=== PATIENT | male | born 1985 | race Caucasian/White ===

== ENCOUNTER 2016-06-06 23:58 | Inpatient (IN) | payer OTHER ==
[~2016-06-06] VITALS: Ht 180.3 cm; Wt 105.0 kg
[~2016-06-06 23:58] MED LIST: AMOXICILLIN500 M2 PO; NAPROSYN500 M1 PO
[2016-06-07] VITALS (10 sets, daily range): BP systolic 118–144; BP diastolic 43–60
--- NOTE | 2016-06-07 00:23 | NUR ---
PT TO TRIAGE C/O BILAT LEG SWELLING AND PAIN/ INABILITY TO WALK WELL "A LAUNDRY LIST OF THINGS." DENIES CHEST PAIN, DENIES SOB. BILATERALY EXTREMITIES 2+ PITTING EDEMA NOTED.
[2016-06-07] MEDS ORDERED: SEROQUEL XR200 M1 PO (00:37)
[2016-06-07] MEDS ORDERED: PRAZOSIN HCL1 M1 PO (00:39)
[2016-06-07] MEDS ORDERED: ALPRAZOLAM0.5 M4 PO (00:39)
--- NOTE | 2016-06-07 00:40 | NUR ---
PA STUDENT AT BEDSIDE FOR EVAL
--- NOTE | 2016-06-07 00:52 | ED GENERAL ADULT ---
See Addendum History of Present Illness General Chief Complaint: General Adult Stated Complaint: BILAT LEG SWELLING MULTI COMP HAND PROB X'S 1 WK Source: patient, family Exam Limitations: no limitations Vital Signs & Intake/Output Vital Signs & Intake/Output Vital Signs Date Time Temp Pulse Resp B/P Pulse O2 O2 Flow FiO2 Ox Delivery Rate 06/07 0331 97.5 87 18 124/57 100 Room Air 06/07 0033 100 Room Air 06/07 0024 98.4 93 18 126/58 100 Room Air Allergies Coded Allergies: No Known Allergies (10/20/15) Triage Note: PT TO TRIAGE C/O BILAT LEG SWELLING AND PAIN/ INABILITY TO WALK WELL "A LAUNDRY LIST OF THINGS." DENIES CHEST PAIN, DENIES SOB. BILATERALY EXTREMITIES 2+ PITTING EDEMA NOTED. Triage Nurses Notes Reviewed? yes Onset: Abrupt Duration: week(s): (1), constant, continues in ED Timing: recent history Injury Environment: home No Modifying Factors: none HPI: 31-year-old male comes into emergency room with complaints of edema to his legs bilaterally that has been going on for the past week as well as some increased weakness and fatigue. He also feels that his abdomen is distended. Denies any alcohol use. Denies any drug use. Patient reports she's never had edema in his legs in the past. He also reports some weakness in his legs bilaterally. Denies any urinary bowel dysfunction. (BLADIMIR JACKSON,GENO) Reconcile Medications Alprazolam 0.5 MG TABLET 1 TAB PO TIDPRN ANXIETY (Reported) Prazosin HCl 1 MG CAPSULE 1 CAP PO QPM HTN (Reported) Quetiapine Fumarate (Seroquel XR) 200 MG TAB.ER.24H 1 TAB PO QPM MENTAL HEALTH (Reported) (SANDY JEREZ,VERONICA Menezes) Past History Travel History Traveled to [place] past 21 day No Medical History Any Pertinent Medical History? 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 No (GENO SAMUEL) Review of Systems Review of Systems Constitutional: Reports: no symptoms. EENTM: Reports: no symptoms. Respiratory: Reports: no symptoms. Cardiovascular: Reports: no symptoms. GI: Reports: see HPI. Genitourinary: Reports: no symptoms. Musculoskeletal: Reports: see HPI. Skin: Reports: no symptoms. Neurological/Psychological: Reports: no symptoms. Hematologic/Endocrine: Reports: no symptoms. Immunologic/Allergic: Reports: no symptoms. All Other Systems: Reviewed and Negative (GENO SAMUEL) Physical Exam Physical Exam General Appearance: well developed/nourished, alert, awake Head: atraumatic, normal appearance Eyes: Bilateral: normal appearance, EOMI. Ears, Nose, Throat: normal pharynx, normal ENT inspection, hearing grossly normal Neck: normal inspection, full range of motion Respiratory: normal breath sounds, no respiratory distress Cardiovascular: regular rate/rhythm Extremities: 4+ pitting edema bilaterally Neurologic/Psych: awake, alert, oriented x 3, normal gait Skin: intact, normal color Core Measures ACS in differential dx? No CVA/TIA Diagnosis: No Severe Sepsis Present: No Septic Shock Present: No (GENO SAMUEL) Progress Differential Diagnoses I considered the following diagnoses in my evaluation of the patient: Renal failure, hypoalbuminemia, liver cirrhosis, viral syndrome, hypothyroid, CHF, anasarca, hepatitis, Plan of Care: Orders Procedure Date/time Status Add-on Test (ER Only) 06/07 0331 Active URINE DRUGS OF ABUSE 06/07 0307 Active URINE OSMOLALITY 06/07 0307 Active URINE LYTES, SPOT 06/07 0307 Active Intake & Output 06/07 0246 Active Admit to inpatient 06/07 0225 Active EKG 06/07 0214 Active Patient Data 06/07 0210 Active AMMONIA LEVEL 06/07 0204 Complete ACETOMINOPHEN 06/07 0107 Active SALICYLATE 06/07 0107 Active SERUM OSMOLALITY 06/07 0107 Active MAGNESIUM 06/07 0107 Active DIRECT BILIRUBIN 06/07 0107 Active Add-on Test (ER Only) 06/07 0055 Active PARTIAL THROMBOPLASTIN TIME 06/07 0055 Complete PROTHROMBIN TIME 06/07 0055 Complete URINALYSIS 06/07 0048 Active THYROID STIMULATING HORMONE 03/23 0048 Active ETHANOL 06/08 47 Active COMPREHENSIVE METABOLIC PANEL 06/08 47 Active CBC WITHOUT DIFFERENTIAL 06/08 47 Complete Lab Add-on Test 06/07 UNK Active Laboratory Tests 06/07/16 0239: Ammonia < 9 L 06/07/16 0107: Anion Gap 13, Estimated GFR > 60, BUN/Creatinine Ratio 30.0 H, Glucose 135 H, Serum Osmolality Pending, Calcium 9.6, Magnesium Pending, Total Bilirubin 2.9 H , Direct Bilirubin Pending, AST 89 H, ALT 47, Alkaline Phosphatase 182 H, Total Protein 6.5, Albumin 3.7, Globulin 2.8, Albumin/Globulin Ratio 1.3, TSH 3.360, PT 27.1 H, INR 2.61 H, APTT 40 H, CBC w Diff MAN DIFF ORDERED, RBC 2.15 L, MCV 115.2 H, MCH 38.1 H, RDW 21.7 H, MPV 8.4, Gran % 81.0 H, Lymphocytes % 17.1 L, Monocytes % 1.0 L, Eosinophils % 0.8, Basophils % 0.1, Absolute Granulocytes 13.0 H, Segmented Neutrophils 76 H, Band Neutrophils 1, Absolute Lymphocytes 2.8, Lymphocytes 18 L, Monocytes 4, Absolute Monocytes 0.2 , Eosinophils 1, Absolute Eosinophils 0.1, Absolute Basophils 0, Nucleated RBCs 1 H, Platelet Estimate ADEQUATE, Polychromasia 1+, Poikilocytosis 1+, Anisocytosis 3+, Macrocytic Cells 3+, Target Cells RARE, Ovalocytes 1+, Stomatocytes FEW, Elliptocytes FEW, PUBS MCHC 33.1, Fld Total RBCs Counted 100, Salicylates Pending, Acetaminophen Pending, Serum Alcohol < 10.0 Initial ED EKG: none Hand-Off Endorsed To: SANDY JEREZ,VERONICA Menezes Endorsed Time: 57 Pending: CT, labs (BLADIMIR JACKSON,GENO) Diagnostic Imaging: Viewed by Me: CT Scan. Discussed w/RAD: CT Scan. Radiology Impression: PATIENT: MARC CATES JR PRESENT AGE: 31 PATIENT ACCOUNT NO: [id number] : 83 LOCATION: [facility] ORDERING PHYSICIAN: GENO JACKSON SERVICE DATE: 06/07/16 EXAM TYPE : CAT - CT ABD & PELVIS W IV CONTRAST EXAMINATION: CT ABDOMEN AND PELVIS WITH CONTRAST CLINICAL INFORMATION: Hepatomegaly. Lower extremity edema. COMPARISON: None TECHNIQUE: Multidetector volumetric imaging was performed of the abdomen and pelvis before and after the IV administration of 94 mL of Optiray 320 intravenous contrast. Sagittal and coronal reformatted images were obtained on the technologist's workstation. DLP: 771.91 mGy-cm FINDINGS: LUNG BASES: Small bilateral pleural effusions. Bibasilar dependent atelectasis. LIVER, GALLBLADDER , AND BILIARY TREE: Liver is enlarged. Right lobe of liver measures 24 cm superior inferior. No focal liver lesion. No intrapelvic bile duct dilatation. The gallbladder is unremarkable with no evidence of radiopaque gallstones, gallbladder wall thickening, or obvious pericholecystic inflammatory changes. PANCREAS: Unremarkable. SPLEEN: Spleen is enlarged. Spleen measures 19.4 cm superior inferior. ADRENAL GLANDS: Unremarkable. KIDNEYS AND URETERS: The kidneys are normal in size, shape, and attenuation. No hydronephrosis, hydroureter, or calculi seen. No perinephric stranding. BLADDER: Unremarkable. GASTROINTESTINAL TRACT: There is some contrast in the large bowel. This is mixed was moderate volume of stool. No acute change of the bowel. No bowel obstruction. No bowel wall thickening or edema. The appendix is normal. Small bowel loops are normal. MESENTERY: Moderate volume of abdominal ascites. ABDOMINAL WALL: No significant hernia is appreciated. LYMPH NODES: There are subcentimeter lymph nodes in the retroperitoneum the parapelvic paracaval region. No bulky lymphadenopathy. VASCULAR: Normal enhancement of the abdominal and pelvic vasculature. This includes inferior vena cava, portal vein, aorta and iliac vessels. PELVIC VISCERA: Unremarkable. OSSEOUS STRUCTURES: Unremarkable. IMPRESSION: Hepatosplenomegaly. Abdominal ascites. Bilateral pleural effusions. DICTATED BY: MARK BECKER MD DATE/TIME DICTATED:06/07/16230 BACK END WEB DEVELOPER :DOLLY DATE/TIME TRANSCRIBED:06/07/16230 CONFIDENTIAL, DO NOT COPY WITHOUT APPROPRIATE AUTHORIZATION. <Electronically signed in Other Vendor System> SIGNED BY: MARK BECKER MD 06/07/16 0240 Initial ED EKG: SR WITH PROLONGED QT. NO OLD TO COMPARE Comments: Patient states that he is trying to cut back on his drinking. Patient went to [employer] in 2010 but did not feel that it helped. Patient states he uses alcohol as a crutch to get through things. Patient states he is able to occlude 3-4 days without drinking without any difficulties. Patient states that he knows he needs to stop drinking. Patient will be admitted to the ICU for hyponatremia. Patient also has evidence of alcoholic cirrhosis. (SANDY JEREZ,VERONICA Menezes) Departure Departure Disposition: STILL A PATIENT Referrals: DION PAYTON D.O. (PCP/Family) Departure Forms: Customer Survey General Discharge Information (GENO SAMUEL) Departure Condition: Guarded Clinical Impression Primary Impression: Hyponatremia Secondary Impressions: Alcoholic cirrhosis of liver with ascites Edema, lower extremity Qualifiers: Laterality: bilateral Qualified Code: R60.0 - Localized edema Admission Note [facility] Documentation of Exam: Documentation of any treatments & extenuating circumstances including Concerns Regarding Discharge (functional status, medication knowledge or non-compliance, living conditions, etc.) that warrant an admission rather than observation: [ICU ADMISSION, FLUID RESTRICTION, GI CONSULT, PSYCH CONSULT FOR ALCOHOL REHAB ONCE MEDICALLY STABLE.] (SANDY JEREZ,VERONICA Menezes) Critical Care Note Critical Care Note Critical Care Time: non-applicable (GENO SAMUEL)
--- NOTE | 2016-06-07 01:11 | NUR ---
LABS SENT (1SST, 1 LAV, 1 BLUE, 1 GUTIERREZ) URINAL AT BEDSIDE FOR PT AND PT AWARE OF NEED FOR URINE SAMPLE.
[2016-06-07 01:21] LABS: ABSOLUTE BASOPHIL COUNT 0 /CUMM (0.0-0.2); ABSOLUTE EOSINOPHIL COUNT 0.1 /CUMM (0.0-0.7); ABSOLUTE LYMPH COUNT 2.8 /CUMM (1.2-3.4); ABSOLUTE MONOCYTE COUNT 0.2 /CUMM (0.10-0.60); BASOPHIL % 0.1 % (0.0-2.0); EOSINOPHIL % 0.8 % (0-5); HEMATOCRIT 24.8 % (42-52); MEAN CORPUSCULAR HGB 38.1 PG (27.0-31.0); MEAN CORPUSCULAR HGB CONC 33.1 G/DL (33.0-37.0); MEAN CORPUSCULAR VOLUME 115.2 FL (80.0-94.0); MEAN PLATELET VOLUME 8.4 FL (7.4-10.4); PLATELET COUNT 102 /CUMM (130-400); RBC DISTRIBUTION WIDTH 21.7 % (11.5-14.5); RED BLOOD CELL CT 2.15 /CUMM (4.70-6.10); WHITE BLOOD CELL COUNT 16.1 /CUMM (4.8-10.8)
[2016-06-07 01:30] LABS: PT 27.1 SEC (9.4-12.5); PTT 40 SEC (25-37)
--- NOTE | 2016-06-07 01:51 | NUR ---
CRITICAL TEST RESULTS [id number] MARC CATES JR 31 M TESTS AND RESULTS: NA 114 Results received and read back by: GEETA LOPEZ Results received date and time: 06/07/16 0151 The following provider was notified of the results, and read the results back: Notified date and time: 06/07/16 at 0151
--- NOTE | 2016-06-07 02:05 | NUR ---
PT TO CAT SCAN VIA STRETHER AT THIS TIME
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
--- NOTE | 2016-06-07 02:30 | NUR ---
PT BACK FROM CAT SCAN. HAS UNOPENED GATORADE BOTTLE IN ROOM. REMINDED HE IS TO REMAIN NPO AT THIS TIME. PT IN AGREEMENT.
--- NOTE | 2016-06-07 02:40 | CT SCAN REPORT ---
EXAMINATION: CT ABDOMEN AND PELVIS WITH CONTRAST CLINICAL INFORMATION: Hepatomegaly. Lower extremity edema. COMPARISON: None TECHNIQUE: Multidetector volumetric imaging was performed of the abdomen and pelvis before and after the IV administration of 94 mL of Optiray 320 intravenous contrast. Sagittal and coronal reformatted images were obtained on the technologist's workstation. DLP: 771.91 mGy-cm FINDINGS: LUNG BASES: Small bilateral pleural effusions. Bibasilar dependent atelectasis. LIVER, GALLBLADDER, AND BILIARY TREE: Liver is enlarged. Right lobe of liver measures 24 cm superior inferior. No focal liver lesion. No intrapelvic bile duct dilatation. The gallbladder is unremarkable with no evidence of radiopaque gallstones, gallbladder wall thickening, or obvious pericholecystic inflammatory changes. PANCREAS: Unremarkable. SPLEEN: Spleen is enlarged. Spleen measures 19.4 cm superior inferior. ADRENAL GLANDS: Unremarkable. KIDNEYS AND URETERS: The kidneys are normal in size, shape, and attenuation. No hydronephrosis, hydroureter, or calculi seen. No perinephric stranding. BLADDER: Unremarkable. GASTROINTESTINAL TRACT: There is some contrast in the large bowel. This is mixed was moderate volume of stool. No acute change of the bowel. No bowel obstruction. No bowel wall thickening or edema. The appendix is normal. Small bowel loops are normal. MESENTERY: Moderate volume of abdominal ascites. ABDOMINAL WALL: No significant hernia is appreciated. LYMPH NODES: There are subcentimeter lymph nodes in the retroperitoneum the parapelvic paracaval region. No bulky lymphadenopathy. VASCULAR: Normal enhancement of the abdominal and pelvic vasculature. This includes inferior vena cava, portal vein, aorta and iliac vessels. PELVIC VISCERA: Unremarkable. OSSEOUS STRUCTURES: Unremarkable. IMPRESSION: Hepatosplenomegaly. Abdominal ascites. Bilateral pleural effusions.
--- NOTE | 2016-06-07 02:41 | NUR ---
PT PLACED ON SENIOR TALENT ACQUISITION SPECIALIST. NSR (HR 87) AMMONIA SENT TO LAB. HOUSE STAFF AT BEDSIDE TO MARY KAY.
--- NOTE | 2016-06-07 03:10 | NUR ---
MOTHER CALLED AND LEFT PHONE NUMBER [phone] AND FATHERS NUMBER [phone]
--- NOTE | 2016-06-07 03:12 | NUR ---
PT BED ASSIGNMENT 103
--- NOTE | 2016-06-07 03:48 | Admission Certification ---
Admission Certification Certification Statement - As attending physician, I certify that at the time of - admission, based on clinical presentation, severity of - symptoms, need for further diagnostic testing and - therapeutic interventions, and risk of adverse outcomes - without in-hospital treatment, in my clinical assessment, - this patient requires an acute hospital stay for a minimum - of two nights or longer. I have also considered psychsocial - factors such as support system, advanced age, financial - issues, cognitive issues, and failed out-patient treatments, - past re-admission history, safety of patient, and lack of - compliance as applicable. Specific rationale supporting this admission is: Severe hyponatremia.
--- NOTE | 2016-06-07 03:57 | NUR ---
REPORT GIVEN TO [facility] ICU
[2016-06-07] MEDS ORDERED: [UNRECOGNIZED DRUG - OTHER] PO (04:11)
--- NOTE | 2016-06-07 04:41 | RADIOLOGY REPORT ---
EXAMINATION: XR CHEST CLINICAL INFORMATION: Leukocytosis. Altered mental status. COMPARISON: CT abdomen pelvis 06/07/2016. TECHNIQUE: 2 views of the chest were obtained. FINDINGS: There is blunting of the posterior costophrenic angles bilateral due to small volume pleural effusions. There is small bibasilar infiltrate/atelectasis better demonstrated on the CT abdomen and pelvis of 06/07/2016. No significant pulmonary vascular congestion. Heart size is normal. Cardiac and mediastinal contours are normal. IMPRESSION: Small bilateral pleural effusions. Small bibasilar infiltrate/atelectasis at the posterior dependent lung bases.
[2016-06-07 06:22] LABS: ABSOLUTE BASOPHIL COUNT 0 /CUMM (0.0-0.2); ABSOLUTE EOSINOPHIL COUNT 0.1 /CUMM (0.0-0.7); ABSOLUTE GRANULOCYTE CT 10.2 /CUMM (1.4-6.5); ABSOLUTE LYMPH COUNT 2.4 /CUMM (1.2-3.4); ABSOLUTE MONOCYTE COUNT 0.5 /CUMM (0.10-0.60); BASOPHIL % 0.3 % (0.0-2.0); EOSINOPHIL % 0.7 % (0-5); HEMATOCRIT 23.7 % (42-52); MEAN CORPUSCULAR HGB 38.1 PG (27.0-31.0); MEAN CORPUSCULAR HGB CONC 32.6 G/DL (33.0-37.0); MEAN CORPUSCULAR VOLUME 116.9 FL (80.0-94.0); MEAN PLATELET VOLUME 8.7 FL (7.4-10.4); PLATELET COUNT 87 /CUMM (130-400); RBC DISTRIBUTION WIDTH 21.6 % (11.5-14.5); RED BLOOD CELL CT 2.03 /CUMM (4.70-6.10); WHITE BLOOD CELL COUNT 13.2 /CUMM (4.8-10.8)
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
--- NOTE | 2016-06-07 08:00 | NUR ---
Patient is drowsey but easily arousable to verbal stimuli, oriented to person and place but needs reorientation to time. Able to move all extremities and can follow commands. BLE are weak and pt needs assistance turning in bed. Speech is slow but he is able to answer questions appropriately. Pupils are approx 3mm and brisk. NSR on tele monitor, HR= 80-90's, SBP: 120-140's and pt denies chest pain. Pulses are palpable. On room air, lungs clear O2 sats 96-97%. Abdomen is distended and soft with + bowel sounds- non tender- Remains Strict NPO at this time. Pope in place draining clear jack colored urine with approx 30mls/hr. +3 BLE edema is noted and +2 generalized edema. BLE are dry- A rash is noted to the groin and nystatin was ordered. An unstageable pressure injury is noted to the coccyx and a duoderm was placed. Patient currently denies pain at this time and vitals are stable. 0800 sodium levels drawn. Awaiting furtehr orders. Patient updated on POC. Will continue to closely monitor patient.
--- NOTE | 2016-06-07 08:34 | NUR ---
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
--- NOTE | 2016-06-07 08:43 | Cons- Nephrology ---
General Information and HPI Consulting Request Date of Consult: 06/07/16 Requested By: LENNY JEREZ,VIOLETTA Reason for Consult: Hyponatremia Source of Information: patient, EMS Exam Limitations: no limitations History of Present Illness: 31 yr old WM w hx HTN, PTSD, & chronic alcohol abuse admit w increasing leg edema over last several weeks. Found volume overloaded w bilat pleural effusions & asictes complicated by hyponatremia to 114. Has been drinking Gator-Aid at home. On Seroquel & alpraxolam at home but no thiazide diuretic. Claims hx thypothyroidism but no replacement; no known cardiac or renal dx but has had alcoholic related pancreatitis. Denies SOB; no vomiting; no narcotics. No sz. Given IV Lasix --> nonoliguria, as well as po KCl. Allergies/Medications Allergies: Coded Allergies: No Known Allergies (10/20/15) Home Med List: Benzocaine/Menthol (Chloraseptic Sore Throat Lozng) 6 MG-10 MG LOZENGE 1 YUNIEL PO Q2P PRN Sore Throat Bisacodyl 5 MG TABLET.DR 5 MG PO DAILY NEEDED PRN CONSTIPATION Folic Acid 1 MG TABLET 1 MG PO DAILY folic acid Furosemide (Lasix) 40 MG TABLET 40 MG PO DAILY kidney disease Gabapentin 100 MG CAPSULE 200 MG PO Q8 neuropathic pain Hydrocortisone 0.5 % CREAM..G. 1 LAURENT EXT BID PRN RASH Multivitamin (One Daily Multivitamin) 1 EACH TABLET 1 TAB PO DAILY multivitamin Nystatin 100,000 UNIT/GRAM CREAM..G. 1 LAURENT TOP TID PRN groin rash Pantoprazole Sodium (Protonix) 40 MG GRANPKT.DR 40 MG PO DAILY GI Polyethylene Glycol 3350 (Miralax) 17 GRAM/DOSE POWDER 17 GM PO DAILY constipation Prazosin HCl 1 MG CAPSULE 1 CAP PO QPM HTN (Reported) Quetiapine Fumarate (Seroquel XR) 200 MG TAB.ER.24H 1 TAB PO QPM MENTAL HEALTH (Reported) Sennosides/Docusate Sodium (Senna Plus Tablet) 8.6 MG-50 MG TABLET 2 TAB PO AT BEDTIME PRN constipation Spironolactone (Aldactone) 25 MG TABLET 100 MG PO DAILY kidney disease Tramadol HCl 50 MG TABLET 50 MG PO Q6-PRN PRN PAIN SCALE 4-6 (MODERATE) [Vitamin B1] 100 MG PO DAILY SUPPLEMENT Current Medications: Current Medications Sig/Sonja Start time Last Medication Dose Route Stop Time Status Admin Furosemide 80 MG ONCE ONE 06/07 0430 DC 06/07 IV 06/07 0531 0534 Ibuprofen 600 MG Q6P PRN 06/07 0400 CAN PO Omeprazole 40 MG DAILY AC 06/07 0700 CAN PO Pantoprazole Sodium 40 MG DAILY 06/07 1000 AC IV Potassium Chloride 40 MEQ ONCE ONE 06/07 0530 DC 06/07 PO 06/07 0431 0533 Sodium Chloride 500 ML Q9H 06/07 0500 DC IV 06/07 1359 Sodium Chloride 1,000 ML Q33H 06/07 0415 DC IV 06/07 2225 Review of Systems Review of Systems Constitutional: Reports: no symptoms. EENTM: Reports: no symptoms. Cardiovascular: Reports: peripheral edema. Respiratory: Reports: no symptoms. GI: Reports: no symptoms. Genitourinary: Reports: no symptoms. Musculoskeletal: Reports: no symptoms. Skin: Reports: no symptoms. Neurological/Psychological: Reports: no symptoms. Hematologic/Endocrine: Reports: no symptoms. Immunologic/Allergic: Reports: no symptoms. 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 Home Who Do You Live With? self Services at Home: None Primary Language: Vietnamese Smoking Status: Current Everyday Smoker ETOH Use: heavy use Illicit Drug Use: marijuana Functional Ability ADLs Independent: dressing, eating, toileting, bathing. Ambulation: independent IADLs Independent: shopping, housework, finances, food prep, telephone, transportation , medication admin. Employment History Employment: Unemployed Exam & Diagnostic Data Vital Signs and I&O Vital Signs Date Time Temp Pulse Resp B/P Pulse O2 O2 Flow FiO2 Ox Delivery Rate 06/07 0600 86 24 137/48 06/07 0500 97.7 86 24 140/60 06/07 0500 97 Room Air 06/07 0500 97.7 86 24 140/60 94 Room Air 06/07 0331 97.5 87 18 124/57 100 Room Air 06/07 0033 100 Room Air 06/07 0024 98.4 93 18 126/58 100 Room Air Intake & Output 06/07 1600 06/07 0400 06/06 0400 06/05 0400 Intake Total 50 0 Output Total 400 500 Balance -350 -500 Intake, Oral 50 0 Number 0 Bowel Movements Output, Urine 400 500 Patient 232 lb 205 lb Weight Physical Exam General Appearance: no apparent distress, alert, awake Head: atraumatic Eyes: Bilateral: other (mildly icteric). 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 mild palmar erythema Lymphatic: no anterior cervical luis angel, no axillary adenopathy Results Pertinent Lab Results: Laboratory Tests 06/07 06/07 06/07 0805 0600 0535 Chemistry Sodium (137 - 145 mmol/L) Pending Cancelled 112 *L Potassium (3.5 - 5.1 mmol/L) 4.1 Chloride (98 - 107 mmol/L) 74 L Carbon Dioxide (22 - 30 mmol/L) 26 Anion Gap (5 - 16) 12 BUN (9 - 20 mg/dL) 23 H Creatinine (0.7 - 1.2 mg/dL) 0.6 L Estimated GFR (>60 ml/min) > 60 Glucose (65 - 99 mg/dL) 125 H Calcium (8.4 - 10.2 mg/dL) 9.4 Phosphorus (2.5 - 4.5 mg/dL) 4.7 H Magnesium (1.6 - 2.3 mg/dL) 1.7 Total Bilirubin (0.2 - 1.3 mg/dL) 2.9 H AST (17 - 59 U/L) 82 H ALT (21 - 72 U/L) 51 Troponin I (<0.11 ng/ml) 0.02 Albumin (3.5 - 5.0 g/dL) 3.6 Hematology CBC w Diff NO MAN DIFF REQ WBC (4.8 - 10.8 /CUMM) 13.2 H RBC (4.70 - 6.10 /CUMM) 2.03 L Hgb (14.0 - 18.0 G/DL) 7.7 L Hct (42 - 52 %) 23.7 L MCV (80.0 - 94.0 FL) 116.9 H MCH (27.0 - 31.0 PG) 38.1 H RDW (11.5 - 14.5 %) 21.6 H Plt Count (130 - 400 /CUMM) 87 L MPV (7.4 - 10.4 FL) 8.7 Gran % (42.2 - 75.2 %) 77.0 H Lymphocytes % (20.5 - 51.1 %) 17.9 L Monocytes % (1.7 - 9.3 %) 4.1 Eosinophils % (0 - 5 %) 0.7 Basophils % (0.0 - 2.0 %) 0.3 Absolute Granulocytes (1.4 - 6.5 /CUMM) 10.2 H Absolute Lymphocytes (1.2 - 3.4 /CUMM) 2.4 Absolute Monocytes (0.10 - 0.60 /CUMM) 0.5 Absolute Eosinophils (0.0 - 0.7 /CUMM) 0.1 Absolute Basophils (0.0 - 0.2 /CUMM) 0 PUBS MCHC (33.0 - 37.0 G/DL) 32.6 L 06/07 06/07 06/07 0401 0342 0342 Toxicology Urine Opiates Screen (>2000 NG/ML) < 100.00 Methadone Screen (>300 NG/ML) 61 Barbiturate Screen (>200 NG/ML) < 60 Ur Phencyclidine Scrn (>25 NG/ML) < 6.00 Amphetamines Screen (>1000 NG/ML) < 100 U Benzodiazepines Scrn (>200 NG/ML) > 800 H Urine Cocaine Screen (>300 NG/ML) < 50 Urine Cannabis Screen (>50 NG/ML) 78.10 H Urines Urinalysis MOD H Urine Color (YEL,AMB,STR) Cancelled ORANG H Urine Clarity (CLEAR) Cancelled CLDY H Urine pH (5.0 - 8.0) Cancelled 5.5 Ur Specific [place] (1.001 - 1.035) Cancelled 1.025 Urine Protein (NEG,<30 MG/DL) Cancelled 30 H Urine Ketones (NEG) Cancelled NEG Urine Nitrite (NEG) Cancelled POS H Urine Bilirubin (NEG) Cancelled POS@ICTO H Urine Urobilinogen (0.1 - 1.0 EU/dl) Cancelled 1.0 Ur Leukocyte Esterase (NEG) Cancelled NEG Ur Microscopic Cancelled SEDIMENT EXAMINED Urine RBC (0 - 5 /HPF) 5-10 H Urine WBC (0 - 2 /HPF) 3-5 H Ur Epithelial Cells (NONE,FEW) RARE Urine Bacteria (NEG/NONE) FEW H Urine Mucus (FEW,NONE) MANY H Urine Hemoglobin (NEG) Cancelled NEG Urine Osmolality (300 - 1000 MOSM/KG) 547 Ur Random Creatinine (mg/dL) 196.9 Ur Random Sodium (30 - 90 mmol/L) < 5 L Ur Random Potassium (mmol/L) 58.3 Fraction Sodium Excret (<1% %) 0.0 Urine Glucose (N MG/DL) Cancelled NEG 06/07 06/07 0239 0107 Chemistry Sodium (137 - 145 mmol/L) 114 *L Potassium (3.5 - 5.1 mmol/L) 3.9 Chloride (98 - 107 mmol/L) 74 L Carbon Dioxide (22 - 30 mmol/L) 27 Anion Gap (5 - 16) 13 BUN (9 - 20 mg/dL) 21 H Creatinine (0.7 - 1.2 mg/dL) 0.7 Estimated GFR (>60 ml/min) > 60 BUN/Creatinine Ratio (7 - 25 %) 30.0 H Glucose (65 - 99 mg/dL) 135 H Serum Osmolality (285 - 295 MOSM/KG) 247 L Calcium (8.4 - 10.2 mg/dL) 9.6 Magnesium (1.6 - 2.3 mg/dL) 1.7 Iron (49 - 181 ug/dL) 115 TIBC (261 - 462 ug/dL) 300 Ferritin (17.9 - 464 ng/mL) 523.0 H Total Bilirubin (0.2 - 1.3 mg/dL) 2.9 H Direct Bilirubin (< 0.4 mg/dL) 1.5 H AST (17 - 59 U/L) 89 H ALT (21 - 72 U/L) 47 Alkaline Phosphatase (< 127 U/L) 182 H Ammonia (9 - 30 umol/L) < 9 L Total Protein (6.3 - 8.2 g/dL) 6.5 Albumin (3.5 - 5.0 g/dL) 3.7 Globulin (1.9 - 4.2 gm/dL) 2.8 Albumin/Globulin Ratio (1.1 - 2.2 %) 1.3 Vitamin B12 (239 - 931 pg/mL) 662 Folate (2.76 - 20.0 ng/mL) 1.7 L TSH (0.270 - 4.200 uIU/mL) 3.360 Cortisol AM Sample (4.46 - 22.7 ug/dL) 35.0 H Coagulation PT (9.4 - 12.5 SEC) 27.1 H INR (0.90 - 1.17) 2.61 H APTT (25 - 37 SEC) 40 H Hematology CBC w Diff MAN DIFF ORDERED WBC (4.8 - 10.8 /CUMM) 16.1 H RBC (4.70 - 6.10 /CUMM) 2.15 L Hgb (14.0 - 18.0 G/DL) 8.2 L Hct (42 - 52 %) 24.8 L MCV (80.0 - 94.0 FL) 115.2 H MCH (27.0 - 31.0 PG) 38.1 H RDW (11.5 - 14.5 %) 21.7 H Plt Count (130 - 400 /CUMM) 102 L MPV (7.4 - 10.4 FL) 8.4 Gran % (42.2 - 75.2 %) 81.0 H Lymphocytes % (20.5 - 51.1 %) 17.1 L Monocytes % (1.7 - 9.3 %) 1.0 L Eosinophils % (0 - 5 %) 0.8 Basophils % (0.0 - 2.0 %) 0.1 Absolute Granulocytes (1.4 - 6.5 /CUMM) 13.0 H Segmented Neutrophils (42.2 - 75.2 %) 76 H Band Neutrophils (0.0 - 5.0 %) 1 Absolute Lymphocytes (1.2 - 3.4 /CUMM) 2.8 Lymphocytes (20.5 - 51.1 %) 18 L Monocytes (1.7 - 9.3 %) 4 Absolute Monocytes (0.10 - 0.60 /CUMM) 0.2 Eosinophils (0 - 5.0 %) 1 Absolute Eosinophils (0.0 - 0.7 /CUMM) 0.1 Absolute Basophils (0.0 - 0.2 /CUMM) 0 Nucleated RBCs (0.0 - 0.0 /100WBC) 1 H Platelet Estimate (ADEQUATE) ADEQUATE Polychromasia 1+ Poikilocytosis 1+ Anisocytosis 3+ Macrocytic Cells 3+ Target Cells RARE Ovalocytes 1+ Stomatocytes FEW Elliptocytes FEW PUBS MCHC (33.0 - 37.0 G/DL) 33.1 Other Body Source Fld Total RBCs Counted (%) 100 Serology Hepatitis A IgM Ab (NONREACTIVE) Pending Hep Bs Antigen (NONREACTIVE) Pending Hep B Core IgM Ab Conf (NONREACTIVE) Pending Hepatitis C Antibody (NONREACTIVE) Pending Toxicology Salicylates (0 - 20.0 mg/dL) < 1.0 Acetaminophen (10.0 - 30.0 ug/mL) < 10.0 L Serum Alcohol (<10 MG/DL) < 10.0 Imaging/Other Studies: CXR: There is blunting of the posterior costophrenic angles bilateral due to small volume pleural effusions. There is small bibasilar infiltrate/atelectasis better demonstrated on the CT abdomen and pelvis of 06/07/2016. No significant pulmonary vascular congestion. Heart size is normal. Cardiac and mediastinal contours are normal. IMPRESSION: Small bilateral pleural effusions. Small bibasilar infiltrate/atelectasis at the posterior dependent lung base CT: LUNG BASES: Small bilateral pleural effusions. Bibasilar dependent atelectasis. LIVER, GALLBLADDER, AND BILIARY TREE: Liver is enlarged. Right lobe of liver measures 24 cm superior inferior. No focal liver lesion. No intrapelvic bile duct dilatation. The gallbladder is unremarkable with no evidence of radiopaque gallstones, gallbladder wall thickening, or obvious pericholecystic inflammatory changes. PANCREAS: Unremarkable. SPLEEN: Spleen is enlarged. Spleen measures 19.4 cm superior inferior. ADRENAL GLANDS: Unremarkable. KIDNEYS AND URETERS: The kidneys are normal in size, shape, and attenuation. No hydronephrosis, hydroureter, or calculi seen. No perinephric stranding. BLADDER: Unremarkable. GASTROINTESTINAL TRACT: There is some contrast in the large bowel. This is mixed was moderate volume of stool. No acute change of the bowel. No bowel obstruction. No bowel wall thickening or edema. The appendix is normal. Small bowel loops are normal. MESENTERY: Moderate volume of abdominal ascites. ABDOMINAL WALL: No significant hernia is appreciated. LYMPH NODES: There are subcentimeter lymph nodes in the retroperitoneum the parapelvic paracaval region. No bulky lymphadenopathy. VASCULAR: Normal enhancement of the abdominal and pelvic vasculature. This includes inferior vena cava, portal vein, aorta and iliac vessels. PELVIC VISCERA: Unremarkable. OSSEOUS STRUCTURES: Unremarkable. IMPRESSION: Hepatosplenomegaly. Abdominal ascites. Bilateral pleural effusions. Assessment/Plan Assessment/Recommendations Assessment: 1. Hyponatremia: severe but likely chronic; hypervolemic likely due to underlying cirrhosis w portal HTN leading to inability to excrete water load in face of hi po free water intake. Can not make dx SIADH in current setting & although claims hx hypothyroid --> TSH normal. Needs diuresis as restrict po & IV fluids w K replacement. Would hold on hypertonic saline and/or vasopressin receptor blockade unless does not respond to diuresis/fluid restriction. At risk for central demyleinating syndrome w rapid correction & would target Na to low 120s over next 24 hrs. 2. Volume overload: likely due to cirrhosis w portal HTN; CHF & GN/nephrotic syndrome less likely but can screen. Recommendations: 1. continue Lasix 80 mg IV q 8hr 2. po KCl & Mg as needed 3. q2 hr lytes for next 12-24 hrs 4. limit all fluid (po & IV) 600 ml or less - start w NPO this AM 5. if serum Na no improvement --> add 3% saline 40 ml/hr till Na 120 5. urine prot/Cr ratio 6. echocardiogram
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
--- NOTE | 2016-06-07 13:55 | ULTRASOUND REPORT ---
EXAMINATION: US TRIPLEX LOWER EXTREMITY, BILATERAL CLINICAL INFORMATION: Pain in the lower extremities with recent increase in size of both lower extremities. COMPARISON: Left lower extremity renal ultrasound 10/20/2015 TECHNIQUE: Color-flow triplex imaging with spectral analysis and compression Doppler were performed on the bilateral lower extremities. FINDINGS: Respiratory variation and normal compression are noted throughout the bilateral lower extremities. The visualized common femoral vein, superficial femoral vein, profunda femoral vein, popliteal vein and midcalf peroneal and posterior tibial venous segments show no evidence of deep venous thrombosis. Augmented flow is not demonstrated due to severe pitting edema. IMPRESSION: Normal triplex scan without evidence of deep venous thrombosis involving the bilateral lower extremities. Edema in the bilateral lower extremities.
--- NOTE | 2016-06-07 14:00 | NUR ---
Patient remains drowsey but easily arousable to verbal stimuli. Vitals have remained stable and pt denies pain. 3% hypertonic solution was started @ 40mls/hr and labs have been drawn every 2 hours. Ultrasound was at the bedside to complete an abdominal and BLE ultrasound. Remains strict NPO and only taking medications with sips of water. Mouth care was provided. Dr. Bales notified that patients urine output 250mls over the past 8 hours- 80mg of IV lasix was given at 1330. Psych now in to evaluate patient. ECHO pending. Family at the bedside and frequently updated on POC. Will continue to closely monitor patient.
--- NOTE | 2016-06-07 14:52 | ULTRASOUND REPORT ---
EXAMINATION: US ABDOMEN LIMITED CLINICAL INFORMATION: Elevated bilirubin. COMPARISON: CT scan earlier today TECHNIQUE: Real-time imaging of the right upper quadrant abdominal viscera. Study is limited because of the portable nature of the study and the patient's body habitus and immobility. FINDINGS: PANCREAS: Not seen. LIVER: The liver is enlarged with increased echogenicity consistent with fatty infiltration. GALLBLADDER: The gallbladder is physiologically and contains sludge without evidence of stones, wall thickening, or pericholecystic fluid. A small gallbladder wall polyp is present measuring 6 x 4 x 5 mm at the fundus COMMON BILE DUCT: Normal in caliber measuring 0.6 cm in diameter. RIGHT KIDNEY: No hydronephrosis. No renal calculi or focal parenchymal lesions. The kidney measures 11.5 cm in maximum dimension. FREE FLUID: Ascites is present that are seen on the CT study from earlier today. IMPRESSION: 1. No bile duct dilatation. 2. Enlarged fatty liver. 3. Gallbladder contains sludge and a single polyp. 4. Ascites.
--- NOTE | 2016-06-07 15:30 | NUR ---
Referral received this am via electronic order desk clerk. This patient is a 31 year old man admitted to the hospital early this morning with bilateral leg edema, and hypernatremia with a history of ETOH abuse. Patient admitted to critical care; placed on CIWA for observation of withdrawal symptoms; minimal symptoms noted currently. Of note, patient on benzo's in community. Will follow to better assess aftercare needs and motivation and interest in treatment.
--- NOTE | 2016-06-07 16:20 | NUR ---
Wound Care Assessment: Patient presents with an unstageable pressure injury to his coccyx that was present on admission. Wound measures 1.5 X 1cm, 75% pink moist wound bed and 25% moist yellow- Scant amounts of serosangenous draining is noted from the wound- No s/s of infect- Periwound appears red and blanchable. A rash is noted to the right groin area- most likely related to yeast. History reviewed with patient who states that he has had multiple falls over the past few weeks and has had difficulty ambulating. Patient was educated on wound care and the importance of turning and repositioning. Impression: unstageable pressure injury to the coccyx that was present on admission. Recommendations: Clease wound with normal saline and pat dry- Apply a hydrocolloid dressing and change every 3-5 days and prn- Nystatin ordered by house staff for rash to groin. Please obtain a catergory 2 mattress and a nutrition consult. Please follow all additional pressure injury guidelines.
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
[2016-06-08] VITALS (11 sets, daily range): BP systolic 114–145; BP diastolic 36–69
[2016-06-08 03:30] LABS: ABSOLUTE BASOPHIL COUNT 0 /CUMM (0.0-0.2); ABSOLUTE EOSINOPHIL COUNT 0.1 /CUMM (0.0-0.7); ABSOLUTE LYMPH COUNT 2.4 /CUMM (1.2-3.4); ABSOLUTE MONOCYTE COUNT 0.5 /CUMM (0.10-0.60); BASOPHIL % 0.3 % (0.0-2.0); EOSINOPHIL % 0.7 % (0-5); GRANULOCYTE % 72.3 % (42.2-75.2); HEMATOCRIT 23.4 % (42-52); MEAN CORPUSCULAR HGB 38.8 PG (27.0-31.0); MEAN CORPUSCULAR HGB CONC 33.3 G/DL (33.0-37.0); MEAN PLATELET VOLUME 8.2 FL (7.4-10.4); PLATELET COUNT 87 /CUMM (130-400); RBC DISTRIBUTION WIDTH 21.8 % (11.5-14.5); RED BLOOD CELL CT 2.01 /CUMM (4.70-6.10); WHITE BLOOD CELL COUNT 11.1 /CUMM (4.8-10.8)
[2016-06-08 03:47] LABS: MEAN CORPUSCULAR VOLUME 116.2 FL (80.0-94.0)
--- NOTE | 2016-06-08 04:25 | NUR ---
PT AROUSABLE, SLEEPY. MANUAL BP 128/36, NSR 80'S. SODIUM 120, REPORTED TO AWARE. HYPERTONIC SOLUTION DOWN TO 20ML/H. NEXT SODIU WILL BE AT 0700.
--- NOTE | 2016-06-08 07:40 | PN- Resident CRCU ---
Subjective HPI/CRCU Issues: Patient seen and examined this morning. He was lying in bed in no acute distress , alert, oriented times three. No complaints of any nausea, vomiting, abd pain, sob. Na level has improved from 111>>112>>114>>117>>120>>121, hypertonic saline reduced to 20ml/hr. Patient has been afebrile, systolic BP ranging around 120s, satting well above 90 on RA. Urine output low but improved. Remains on lasix 80mg IV Q8, monitoring K closely. 24 Hour Events: none Objective Vital Signs & I&O Last 8 Hrs of Vitals and I&O: Laboratory Tests 06/08/16 0700: Anion Gap 11, Estimated GFR > 60, BUN/Creatinine Ratio 33.8 H 06/08/16 0313: Anion Gap 8, Estimated GFR > 60, Glucose 118 H, Calcium 8.6, Phosphorus 5.0 H, Magnesium 1.8, Total Bilirubin 2.9 H, AST 87 H, ALT 56, Albumin 3.5, CBC w Diff NO MAN DIFF REQ, RBC 2.01 L, MCV 116.2 H, MCH 38.8 H, RDW 21.8 H, MPV 8.2, Gran % 72.3, Lymphocytes % 21.8, Monocytes % 4.9, Eosinophils % 0.7, Basophils % 0.3, Absolute Granulocytes 8.0 H, Absolute Lymphocytes 2.4, Absolute Monocytes 0.5, Absolute Eosinophils 0.1, Absolute Basophils 0, PUBS MCHC 33.3 06/08/16 0300: Sodium Cancelled 06/08/16 0045: 06/07/160: Anion Gap 10, Estimated GFR > 60, Glucose 117 H, Calcium 8.8, Phosphorus 5.1 H , Magnesium 1.8, Total Bilirubin 3.0 H, AST 86 H, ALT 57, Albumin 3.6 06/07/162009: Anion Gap 8, Estimated GFR > 60, Glucose 117 H, Calcium 8.8, Phosphorus 5.0 H, Magnesium 1.8, Total Bilirubin 3.1 H, AST 85 H, ALT 57, Albumin 3.5 06/07/16 180: Anion Gap 9, Estimated GFR > 60, Glucose 117 H, Calcium 8.9, Phosphorus 4.9 H, Magnesium 1.8, Total Bilirubin 2.9 H, AST 84 H, ALT 57, Albumin 3.5 06/07/16 1800: Sodium Cancelled 06/07/16 1615: Anion Gap 10, Estimated GFR > 60, Glucose 113 H, Calcium 8.9, Phosphorus 4.9 H , Magnesium 1.7, Total Bilirubin 3.0 H, AST 81 H, ALT 58, Albumin 3.5 06/07/16 1600: Sodium Cancelled 06/07/16 1400: Anion Gap 5, Estimated GFR > 60, Glucose 112 H, Calcium 9.2, Phosphorus 4.9 H, Magnesium 1.7, Total Bilirubin 3.0 H, AST 77 H, ALT 48, Albumin 3.5 06/07/16 1202: 06/07/16 1025: pH 7.54 H, pCO2 33 L, pO2 89, HCO3 27, ABG O2 Sat (Measured) 97.0, P-50 (Temp Corrected) N, Carboxyhemoglobin 1.3 L, O2 Concentration % .21, O2 Delivery Method RA, Phlebotomy Draw Site RIGHT RADIAL 06/07/16 1000: Microbiology 06/07 102 URINE ROUT: Urine Culture - RES Vital Signs Date Time Temp Pulse Resp B/P Pulse O2 O2 Flow FiO2 Ox Delivery Rate 06/08 0600 82 16 145/57 06/08 0400 98.8 83 22 120/36 06/08 0400 94 Room Air 06/08 0000 Room Air 06/08 0000 98.0 84 20 120/60 06/08 0000 98.0 84 16 120/60 06/07 2200 98.1 84 22 127/50 06/07 2000 98.0 85 23 127/45 06/07 1800 98.4 86 21 127/43 06/07 1600 98.4 92 18 142/48 06/07 1600 94 Room Air 06/07 1600 98.4 92 18 142/48 94 Room Air Room Air 06/07 1400 90 18 144/48 06/07 1200 99.0 90 18 118/50 06/07 1200 96 Room Air 06/07 1000 88 18 119/49 Intake & Output 06/08 1600 06/08 0800 06/08 0000 Intake Total 220 280 Output Total 1100 165 Balance -880 115 Intake, IV 220 280 Output, Urine 1100 165 Patient 105.007 kg Weight Intake & Output 06/08 1600 Intake Total Output Total Balance Patient 105.007 kg Weight Exam General Appearance: no apparent distress, alert, awake Head: atraumatic, normal appearance Ears, Nose, Throat: scleral icterus Neck: normal inspection Respiratory: decreased breath sounds b/l lower lung bases Cardiovascular: regular rate/rhythm Gastrointestinal: normal bowel sounds, distended, hepatosplenomegaly, +fluid thrill Extremities: normal inspection, b/l pitting edema 4+ Nutrition Nutrition: NPO Current Medications: Current Medications Sig/Sonja Start time Last Medication Dose Route Stop Time Status Admin Cyanocobalamin/ 1 BAG DAILY 06/07 1818 DC Thiamine/Pyridoxine IV 06/09 1759 Sodium Chloride 1,000 ML Folic Acid 1 MG DAILY 06/07 1803 DC PO 06/09 1001 Furosemide 80 MG Q8 06/07 1330 AC 06/08 IV 0512 Lorazepam 0.5 MG ONCE 06/12 0000 DC PO 06/12 0001 Lorazepam 0.5 MG Q6H 06/11 0000 DC PO 06/11 1801 Lorazepam 1 MG Q6H 06/10 0000 DC PO 06/10 1201 Lorazepam 1.5 MG Q6 06/08 0600 DC PO 06/08 1801 Lorazepam 1 MG Q2P PRN 06/07 1830 AC IV Lorazepam 2 MG Q6 06/07 1818 AC 06/08 IV 0537 Lorazepam 2 MG ONCE ONE 06/07 1800 CAN PO 06/07 1801 Lorazepam 2 MG Q6 06/07 1800 DC PO 06/08 0001 Lorazepam 2 MG Q2P PRN 06/07 1800 AC IV Magnesium Oxide 400 MG BID 06/08 1000 UNVr PO 06/08 2201 Magnesium Oxide 400 MG BID 06/07 1000 DC 06/07 PO 06/07 2201 2144 Multivitamins 1 TAB DAILY 06/07 1804 DC PO Nystatin 1 LAURENT TID PRN 06/07 0915 AC TOP Pantoprazole Sodium 40 MG DAILY 06/07 1000 AC 06/07 IV 0939 Potassium Chloride 40 MEQ ONCE ONE 06/08 0900 UNVr PO 06/08 0901 Sodium Chloride 500 ML Q12H 06/07 0915 AC 06/07 IV 2347 Thiamine HCl 100 MG DAILY 06/07 1803 DC PO 06/09 1001 Antibiotics Antibiotics? none Impression/Plan Impression/Problem List Impression: Mr. Hoyt is a 31 year old gentleman with PMH alcoholic gastritis, alcoholic pancreatitis, alcohol abuse, tobacco abuse, HTN, PTSD, anxiety and possible hypothyroidism who presents with chief complaint of bilateral lower extremity edema. This edema has worsened over the last month, extends up into his thighs and has been associated with abdominal swelling for about one week. These symptoms occur in the presence of alcohol abuse for since 2006, 2 g tylenol use for over 2 years and severe PTSD. In the ED: Vital signs showed T 98.4, HR 93, RR 18, BP 126/58 and O2 saturation of 100% on room air. Labs were significant for WBC 16.1 with 81% granulocytes and 1 band, macrocytic anemia to 8.2/24.8 with MCV 115, thrombocytopenia to 102, Na 114, K 3.9, Cl 74, HCO3 27, AG 13, BUN 21, Cre 0.7, Glu 135, TBili 2.9, DBili 1.5, AST 89, ALT 47, Alk phos 182, ammonia >9, TSH 3.36, INR 2.61. UA showed positive nitrite, positive bili, 5-10 RBCs, 305 WBCs, few bacteria, many mucus. Abdominal/pelvis CT showed hepatosplenomegaly, moderate abdominal ascites and bilateral pleural effusions. Patient is admitted to the ICU and the following is the management: Repiratory: Bilateral pleural effusions: Patient was found to have bilateral pleural effusion on abdominal CT upon admission,Noted on abdominal CT, no respiratory compromise, he has been satting in high 90s on room air. We'll keep monitoring oxygen saturation. Metabolic: Altered mental status insetting of severe hyponatremia: Duration unknown whether acute or chronic,hypoosmolar hypervolemic hyponatremia, sodium level on admission 114>> 111, patient was started on 3% hypertonic saline(06/08), NPO, jack catheter was placed, started on IV lasix 80 mg TID. Neurochecks Q1 hours * Na levels over past 24 hours checked every 2 hrs, 111>>112>>114>>117>>120>>121 , hypertonic saline reduced to 20ml/hr. Will cont monitoring na Q4. * Nephro on board, will follow recs. GI: Decompensated liver failure: Likely 2/2 alcohol abuse, also further worseninglikely secondary to Tylenol, he has seen taking 2 g of Tylenol for almost 2 years, AST/ALT ratio close to 2:1 favoring alcoholic decompensation, elevated direct bili, abdominal CT showed evidence of Hepatosplenomegaly, Abdominal ascites andBilateral pleural effusions , RUQ US showed evidence of fatty liver, Gallbladder containing sludge and a single polyp but no biliary dilatation, hepatitis panel negative, . No evidence of SBP as of now, no need of urgent paracentesis, GI on board, with follow-up recommendations. Hematologic: Macrocytic Anemia: Likely chronic 2/2 alcohol consumption, however consider varices vs alcoholic gastritis as possible causes, low folate levels, iron studies and B12 normal, will hold off NSAIDs Will guiac all stools, monitor CBC closely. patient deffered guaic last night. Will reassess. * Continue Folic acid po daily. Thrombocytopenia: Likely secondary to decompensated liver disease, level upon presentation 104>>87 , no evidence of any active bleeding, will continue to monitor. * Vit K given PO 10mgx 3 days * Monitor daily platelet level and watch for any occult or active bleeding. HEALTH INFORMATION INTERNSHIP: Alcohol detoxification: Patient presented with altered mental status, scheduled Ativan was held until his mentation improves, Psychiatric and social work consult. * Cont multivitamin, thiamine, folate * Secondly to fluid restriction will be holding off banana bag * We'll closely monitor CIWA and watch for any DTs. Can give low dose ativan as needed if any signs of alcohol withdrawal PTSD: Patient has a history of posttraumatic stress disorder, has been on Seroquel whic was held upon admission secondary to altered mental status. We'll resume once his mentation improves, psychiatry on board, will follow recommendations. CVS: Bilateral lower extremity swelling Patient presented with 4+ pitting edema of bilateral lower extremities with decreased mobility due to lower extremity pain, likely secondary to fluid overload secondary to decompensated liver disease, a bilateral LE dopplers to rule out DVT, will follow-up results. * Echocardiogram pending to rule out any cardiac cause, FULL CODE DVTP: ALPS NPO Problem List: 1. Hyponatremia 2. Alcoholic cirrhosis of liver with ascites 3. Anemia Pain Ratin Tomorrow's Labs & Rationales: ICU bundle in setting of hyponatremia and on lasix CBC for h&H monitoring and thrombocytopenia Plan DVT/Prophylaxis: pharmacological
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
--- NOTE | 2016-06-08 09:10 | ECHOCARDIOGRAM REPORT ---
MARC CATES Age: 31 : 1985 Gender: M Exam Date: 06/07/2016 16:33 Exam Location: [facility] Ht (in): 70 Wt (lb): 205 BSA: 2.17 BP: 137 / 48 Ordering Physician: MARIS THOMAS MD Referring Physician: MARIS THOMAS MD Technologist: Rissa Gonzalez CORY Room Number: 103 Indications: HEART FAILURE Rhythm: Sinus Technical Quality: Good FINDINGS Left Ventricle Normal left ventricular size, wall thickness and systolic function with no obvious regional wall motion abnormalities. Normal left ventricular diastolic filling pattern for age. The ejection fraction is visually estimated at >65 %. Right Ventricle The right ventricle is normal in size and function. Right Atrium The right atrium is normal in size. Left Atrium Mild left atrial dilatation. Mitral Valve The mitral valve is normal in structure and function. There is mild mitral regurgitation. Aortic Valve Structurally normal aortic valve without significant sclerosis or stenosis. There is no aortic regurgitation. Tricuspid Valve The tricuspid valve is normal in structure and function. There is mild tricuspid regurgitation. Pulmonary artery systolic pressure is mildly elevated at 40 mm Hg. Pulmonic Valve Structurally normal pulmonic valve. There is no pulmonic regurgitation. Pericardium Normal pericardium without effusion. No pleural effusion. Great Vessels Normal aortic root dimension. The aortic arch and great vessels are well seen and are normal. Dilated IVC. CONCLUSIONS Normal left ventricular size, wall thickness and systolic function with no obvious regional wall motion abnormalities. Mild left atrial dilatation. No significant valve abnormalities. Pulmonary artery systolic pressure is mildly elevated at 40 mm Hg. Dilated IVC. Physiologic valvular regurgitation. Marc Garcia M.D. (Electronically Signed) Final Date: 08 June 2016 09:10 MEASUREMENTS (Male / Female) Normal Values 2D ECHO LV Diastolic Diameter PLAX 4.9 cm 4.2 - 5.9 / 3.9 - 5.3 cm LV Systolic Diameter PLAX 2.6 cm 2.1 - 4.0 cm LV Fractional Shortening PLAX 46.9 % 25 - 46 % LV Ejection Fraction 2D Teich 78.2 % IVS Diastolic Thickness 1.0 cm LVPW Diastolic Thickness 1.1 cm LV Relative Wall Thickness 0.4 RV Internal Dim ED PLAX 3.1 cm 1.9 - 3.8 cm LVOT Diameter 1.9 cm Aortic Root Diameter 2.8 cm LA Systolic Diameter LX 4.3 cm 3.0 - 4.0 / 2.7 - 3.8 cm LA Volume 64.0 cm 18 - 58 / 22 - 52 cm Ascending Aorta Diameter 2.8 cm DOPPLER AV Peak Velocity 262.0 cm/s AV Peak Gradient 27.5 mmHg AV Mean Velocity 166.0 cm/s AV Mean Gradient 13.0 mmHg AV Velocity Time Integral 45.9 cm LVOT Peak Velocity 218.0 cm/s LVOT Peak Gradient 19.0 mmHg LVOT Mean Velocity 135.0 cm/s LVOT Mean Gradient 9.0 mmHg LVOT Velocity Time Integral 37.5 cm LVOT Stroke Volume 106.3 cm AV Area Cont Eq vti 2.3 cm AV Area Cont Eq pk 2.4 cm MV Peak Velocity 182.0 cm/s MV Peak Gradient 13.2 mmHg MV Mean Velocity 92.9 cm/s MV Mean Gradient 5.0 mmHg Mitral E Point Velocity 133.0 cm/s Mitral A Point Velocity 52.4 cm/s Mitral E to A Ratio 2.5 MV PHT Velocity 189.0 cm/s MV Deceleration Crisp 956.0 cm/s MV Pressure Half Time 59.3 ms MV Area PHT 3.7 cm MV Deceleration Time 225.0 ms TR Peak Velocity 293.0 cm/s TR Peak Gradient 34.3 mmHg Right Atrial Pressure 5.0 mmHg Pulmonary Artery Systolic Pressu 39.3 mmHg Right Ventricular Systolic Press 39.3 mmHg PV Peak Velocity 132.0 cm/s PV Peak Gradient 7.0 mmHg PV Mean Velocity 93.0 cm/s PV Mean Gradient 4.0 mmHg PV Velocity Time Integral 29.1 cm LV E' Lateral Velocity 16.8 cm/s Mitral E to LV E' Lateral Ratio 7.9 LV E' Septal Velocity 12.2 cm/s Mitral E to LV E' Septal Ratio 10.9
--- NOTE | 2016-06-08 09:39 | PN- Nephrology ---
Assessment/Plan Assessment: 1. Hyponatremia: severe & chronic - improving; due to cirrhosis w hypervolemia & excess free water intake as outpt. No need for any additional hypertonic saline but needs continued fluid restriction & diuresis w K replacement. No indication for V2 receptor blockade Suggestion: 1. stop 3% saline 2. continue IV Lasix 3. fluid restriction 600 ml/day total --> dry diet from kitchen 4. K po 5. relax bl draw q 4 - 6 hrs 6. check urine prot/Cr ratio Subjective Subjective: Awake & alert; still on 3 % saline IV No SOB No nausea; no szs Nonoliguric Objective Vital Signs and I&Os Vital Signs Date Time Temp Pulse Resp B/P Pulse O2 O2 Flow FiO2 Ox Delivery Rate 06/08 0600 82 16 145/57 06/08 0400 98.8 83 22 120/36 06/08 0400 94 Room Air 06/08 0000 Room Air 06/08 0000 98.0 84 20 120/60 06/08 0000 98.0 84 16 120/60 06/07 2200 98.1 84 22 127/50 06/07 2000 98.0 85 23 127/45 06/07 1800 98.4 86 21 127/43 06/07 1600 98.4 92 18 142/48 06/07 1600 94 Room Air 06/07 1600 98.4 92 18 142/48 94 Room Air Room Air 06/07 1400 90 18 144/48 06/07 1200 99.0 90 18 118/50 06/07 1200 96 Room Air 06/07 1000 88 18 119/49 Intake & Output 06/08 1600 06/08 0400 06/07 1600 06/07 0400 06/06 1600 06/06 0400 Intake Total 220 280 220 0 Output Total 1100 165 650 500 Balance -880 115 -430 -500 Intake, IV 220 280 150 Intake, Oral 70 0 Number 0 Bowel Movements Output, Urine 1100 165 650 500 Patient 232 lb 232 lb 205 lb Weight Physical Exam General Appearance: well developed/nourished, no apparent distress, alert Head: atraumatic, normal appearance Ears, Nose, Throat: icteric Respiratory: no respiratory distress, quiet respiration, decreased breath sounds Cardiovascular: regular rate/rhythm, edema Abdomen: soft, non-tender, hepatomegaly Extremities: pedal edema Neurologic/Psychiatric: awake, alert, noo asterixis Skin: intact Current Medications: Current Medications Sig/Sonja Start time Last Medication Dose Route Stop Time Status Admin Cyanocobalamin/ 1 BAG DAILY 06/07 1818 DC Thiamine/Pyridoxine IV 06/09 1759 Sodium Chloride 1,000 ML Folic Acid 1 MG DAILY 06/08 1000 AC PO Folic Acid 1 MG DAILY 06/07 1803 DC PO 06/09 1001 Furosemide 80 MG Q8 06/07 1330 AC 06/08 IV 0512 Lorazepam 0.5 MG ONCE 06/12 0000 DC PO 06/12 0001 Lorazepam 0.5 MG Q6H 06/11 0000 DC PO 06/11 1801 Lorazepam 1 MG Q6H 06/10 0000 DC PO 06/10 1201 Lorazepam 1.5 MG Q6 06/08 0600 DC PO 06/08 1801 Lorazepam 1 MG Q2P PRN 06/07 1830 AC IV Lorazepam 2 MG Q6 06/07 1818 AC 06/08 IV 0537 Lorazepam 2 MG ONCE ONE 06/07 1800 CAN PO 06/07 1801 Lorazepam 2 MG Q6 06/07 1800 DC PO 06/08 0001 Lorazepam 2 MG Q2P PRN 06/07 1800 AC IV Magnesium Oxide 400 MG BID 06/08 1000 AC 06/08 PO 06/08 2201 0908 Magnesium Oxide 400 MG BID 06/07 1000 DC 06/07 PO 06/07 2201 2144 Multivitamins 1 TAB DAILY 06/08 1000 UNVr PO Multivitamins 1 TAB DAILY 06/07 1804 DC PO Nystatin 1 LAURENT TID PRN 06/07 0915 AC TOP Pantoprazole Sodium 40 MG DAILY 06/07 1000 AC 06/08 IV 0908 Potassium Chloride 40 MEQ ONCE ONE 06/08 0900 DC 06/08 PO 06/08 0901 0905 Sodium Chloride 500 ML Q12H 06/07 0915 DC 06/07 IV 2347 Thiamine HCl 100 MG DAILY 06/08 1000 UNVr PO 06/10 1001 Thiamine HCl 100 MG DAILY 06/07 1803 DC PO 06/09 1001 Results Pertinent Lab Results: Laboratory Tests 06/08 06/08 06/08 0700 0313 0300 Chemistry Sodium (137 - 145 mmol/L) 121 L 120 L Cancelled Potassium (3.5 - 5.1 mmol/L) 3.8 4.1 Chloride (98 - 107 mmol/L) 81 L 82 L Carbon Dioxide (22 - 30 mmol/L) 29 29 Anion Gap (5 - 16) 11 8 BUN (9 - 20 mg/dL) 27 H 27 H Creatinine (0.7 - 1.2 mg/dL) 0.8 0.8 Estimated GFR (>60 ml/min) > 60 > 60 BUN/Creatinine Ratio (7 - 25 %) 33.8 H Glucose (65 - 99 mg/dL) 118 H Calcium (8.4 - 10.2 mg/dL) 8.6 Phosphorus (2.5 - 4.5 mg/dL) 5.0 H Magnesium (1.6 - 2.3 mg/dL) 1.8 Total Bilirubin (0.2 - 1.3 mg/dL) 2.9 H AST (17 - 59 U/L) 87 H ALT (21 - 72 U/L) 56 Albumin (3.5 - 5.0 g/dL) 3.5 Hematology CBC w Diff NO MAN DIFF REQ WBC (4.8 - 10.8 /CUMM) 11.1 H RBC (4.70 - 6.10 /CUMM) 2.01 L Hgb (14.0 - 18.0 G/DL) 7.8 L Hct (42 - 52 %) 23.4 L MCV (80.0 - 94.0 FL) 116.2 H MCH (27.0 - 31.0 PG) 38.8 H RDW (11.5 - 14.5 %) 21.8 H Plt Count (130 - 400 /CUMM) 87 L MPV (7.4 - 10.4 FL) 8.2 Gran % (42.2 - 75.2 %) 72.3 Lymphocytes % (20.5 - 51.1 %) 21.8 Monocytes % (1.7 - 9.3 %) 4.9 Eosinophils % (0 - 5 %) 0.7 Basophils % (0.0 - 2.0 %) 0.3 Absolute Granulocytes (1.4 - 6.5 /CUMM) 8.0 H Absolute Lymphocytes (1.2 - 3.4 /CUMM) 2.4 Absolute Monocytes (0.10 - 0.60 /CUMM) 0.5 Absolute Eosinophils (0.0 - 0.7 /CUMM) 0.1 Absolute Basophils (0.0 - 0.2 /CUMM) 0 PUBS MCHC (33.0 - 37.0 G/DL) 33.3 03/24 03/23 03/23 03/23 03/23 0045 2150 2009 180 1800 Chemistry Sodium (137 - 145 mmol/L) 117 *L 115 *L 115 *L 115 *L Cancelled Potassium (3.5 - 5.1 mmol/L) 4.5 4.6 4.6 Chloride (98 - 107 mmol/L) 78 L 78 L 78 L Carbon Dioxide (22 - 30 mmol/L) 27 29 28 Anion Gap (5 - 16) 10 8 9 BUN (9 - 20 mg/dL) 27 H 26 H 26 H Creatinine (0.7 - 1.2 mg/dL) 0.8 0.8 0.8 Estimated GFR (>60 ml/min) > 60 > 60 > 60 Glucose (65 - 99 mg/dL) 117 H 117 H 117 H Calcium (8.4 - 10.2 mg/dL) 8.8 8.8 8.9 Phosphorus (2.5 - 4.5 mg/dL) 5.1 H 5.0 H 4.9 H Magnesium (1.6 - 2.3 mg/dL) 1.8 1.8 1.8 Total Bilirubin (0.2 - 1.3 mg/dL) 3.0 H 3.1 H 2.9 H AST (17 - 59 U/L) 86 H 85 H 84 H ALT (21 - 72 U/L) 57 57 57 Albumin (3.5 - 5.0 g/dL) 3.6 3.5 3.5 06/07 06/07 06/07 06/07 06/07 1615 1600 1400 1202 1025 Blood Gas pH (7.35 - 7.45 PH) 7.54 H pCO2 (35 - 45 TORR) 33 L pO2 (80 - 100 TORR) 89 HCO3 (21 - 28 MEQ/L) 27 ABG O2 Sat (Measured) (>96.0 %) 97.0 P-50 (Temp Corrected) N Carboxyhemoglobin (1.5 - 5.0 %) 1.3 L O2 Concentration % .21 O2 Delivery Method RA Chemistry Sodium (137 - 145 mmol/L) 115 *L Cancelled 112 *L 113 *L Potassium (3.5 - 5.1 mmol/L) 4.7 4.6 Chloride (98 - 107 mmol/L) 78 L 77 L Carbon Dioxide (22 - 30 mmol/L) 27 30 Anion Gap (5 - 16) 10 5 BUN (9 - 20 mg/dL) 26 H 26 H Creatinine (0.7 - 1.2 mg/dL) 0.8 0.8 Estimated GFR (>60 ml/min) > 60 > 60 Glucose (65 - 99 mg/dL) 113 H 112 H Calcium (8.4 - 10.2 mg/dL) 8.9 9.2 Phosphorus (2.5 - 4.5 mg/dL) 4.9 H 4.9 H Magnesium (1.6 - 2.3 mg/dL) 1.7 1.7 Total Bilirubin (0.2 - 1.3 mg/dL) 3.0 H 3.0 H AST (17 - 59 U/L) 81 H 77 H ALT (21 - 72 U/L) 58 48 Albumin (3.5 - 5.0 g/dL) 3.5 3.5 Miscellaneous Phlebotomy Draw Site RIGHT RADIAL 06/07 06/07 06/07 1000 0805 0600 Chemistry Sodium (137 - 145 mmol/L) 112 *L 111 *L Cancelled 06/07 06/07 0535 0401 Chemistry Sodium (137 - 145 mmol/L) 112 *L Potassium (3.5 - 5.1 mmol/L) 4.1 Chloride (98 - 107 mmol/L) 74 L Carbon Dioxide (22 - 30 mmol/L) 26 Anion Gap (5 - 16) 12 BUN (9 - 20 mg/dL) 23 H Creatinine (0.7 - 1.2 mg/dL) 0.6 L Estimated GFR (>60 ml/min) > 60 Glucose (65 - 99 mg/dL) 125 H Calcium (8.4 - 10.2 mg/dL) 9.4 Phosphorus (2.5 - 4.5 mg/dL) 4.7 H Magnesium (1.6 - 2.3 mg/dL) 1.7 Total Bilirubin (0.2 - 1.3 mg/dL) 2.9 H AST (17 - 59 U/L) 82 H ALT (21 - 72 U/L) 51 Troponin I (<0.11 ng/ml) 0.02 Albumin (3.5 - 5.0 g/dL) 3.6 Free T4 (0.79 - 2.35 ng/dL) 1.28 Hematology CBC w Diff NO MAN DIFF REQ WBC (4.8 - 10.8 /CUMM) 13.2 H RBC (4.70 - 6.10 /CUMM) 2.03 L Hgb (14.0 - 18.0 G/DL) 7.7 L Hct (42 - 52 %) 23.7 L MCV (80.0 - 94.0 FL) 116.9 H MCH (27.0 - 31.0 PG) 38.1 H RDW (11.5 - 14.5 %) 21.6 H Plt Count (130 - 400 /CUMM) 87 L MPV (7.4 - 10.4 FL) 8.7 Gran % (42.2 - 75.2 %) 77.0 H Lymphocytes % (20.5 - 51.1 %) 17.9 L Monocytes % (1.7 - 9.3 %) 4.1 Eosinophils % (0 - 5 %) 0.7 Basophils % (0.0 - 2.0 %) 0.3 Absolute Granulocytes (1.4 - 6.5 /CUMM) 10.2 H Absolute Lymphocytes (1.2 - 3.4 /CUMM) 2.4 Absolute Monocytes (0.10 - 0.60 /CUMM) 0.5 Absolute Eosinophils (0.0 - 0.7 /CUMM) 0.1 Absolute Basophils (0.0 - 0.2 /CUMM) 0 PUBS MCHC (33.0 - 37.0 G/DL) 32.6 L Urines Urine Color Cancelled Urine Clarity Cancelled Urine pH Cancelled Ur Specific [place] Cancelled Urine Protein Cancelled Urine Ketones Cancelled Urine Nitrite Cancelled Urine Bilirubin Cancelled Urine Urobilinogen Cancelled Ur Leukocyte Esterase Cancelled Ur Microscopic Cancelled Urine Hemoglobin Cancelled Urine Glucose Cancelled 06/07 06/07 06/07 0342 0342 0239 Chemistry Ammonia (9 - 30 umol/L) < 9 L Miscellaneous Ref Lab Test Result Pending Toxicology Urine Opiates Screen (>2000 NG/ML) < 100.00 Methadone Screen (>300 NG/ML) 61 Barbiturate Screen (>200 NG/ML) < 60 Ur Phencyclidine Scrn (>25 NG/ML) < 6.00 Amphetamines Screen (>1000 NG/ML) < 100 U Benzodiazepines Scrn (>200 NG/ML) > 800 H Urine Cocaine Screen (>300 NG/ML) < 50 Urine Cannabis Screen (>50 NG/ML) 78.10 H Urines Urinalysis MOD H Urine Color (YEL,AMB,STR) ORANG H Urine Clarity (CLEAR) CLDY H Urine pH (5.0 - 8.0) 5.5 Ur Specific [place] (1.001 - 1.035) 1.025 Urine Protein (NEG,<30 MG/DL) 30 H Urine Ketones (NEG) NEG Urine Nitrite (NEG) POS H Urine Bilirubin (NEG) POS@ICTO H Urine Urobilinogen (0.1 - 1.0 EU/dl) 1.0 Ur Leukocyte Esterase (NEG) NEG Ur Microscopic SEDIMENT EXAMINED Urine RBC (0 - 5 /HPF) 5-10 H Urine WBC (0 - 2 /HPF) 3-5 H Ur Epithelial Cells (NONE,FEW) RARE Urine Bacteria (NEG/NONE) FEW H Urine Mucus (FEW,NONE) MANY H Urine Hemoglobin (NEG) NEG Urine Osmolality (300 - 1000 MOSM/KG) 547 Ur Random Creatinine (mg/dL) 196.9 Ur Random Sodium (30 - 90 mmol/L) < 5 L Ur Random Potassium (mmol/L) 58.3 Fraction Sodium Excret (<1% %) 0.0 Urine Glucose (N MG/DL) NEG 06/07 0107 Chemistry Sodium (137 - 145 mmol/L) 114 *L Potassium (3.5 - 5.1 mmol/L) 3.9 Chloride (98 - 107 mmol/L) 74 L Carbon Dioxide (22 - 30 mmol/L) 27 Anion Gap (5 - 16) 13 BUN (9 - 20 mg/dL) 21 H Creatinine (0.7 - 1.2 mg/dL) 0.7 Estimated GFR (>60 ml/min) > 60 BUN/Creatinine Ratio (7 - 25 %) 30.0 H Glucose (65 - 99 mg/dL) 135 H Serum Osmolality (285 - 295 MOSM/KG) 247 L Calcium (8.4 - 10.2 mg/dL) 9.6 Magnesium (1.6 - 2.3 mg/dL) 1.7 Iron (49 - 181 ug/dL) 115 TIBC (261 - 462 ug/dL) 300 Ferritin (17.9 - 464 ng/mL) 523.0 H Total Bilirubin (0.2 - 1.3 mg/dL) 2.9 H Direct Bilirubin (< 0.4 mg/dL) 1.5 H AST (17 - 59 U/L) 89 H ALT (21 - 72 U/L) 47 Alkaline Phosphatase (< 127 U/L) 182 H Total Protein (6.3 - 8.2 g/dL) 6.5 Albumin (3.5 - 5.0 g/dL) 3.7 Globulin (1.9 - 4.2 gm/dL) 2.8 Albumin/Globulin Ratio (1.1 - 2.2 %) 1.3 Vitamin B12 (239 - 931 pg/mL) 662 Folate (2.76 - 20.0 ng/mL) 1.7 L TSH (0.270 - 4.200 uIU/mL) 3.360 Cortisol AM Sample (4.46 - 22.7 ug/dL) 35.0 H Coagulation PT (9.4 - 12.5 SEC) 27.1 H INR (0.90 - 1.17) 2.61 H APTT (25 - 37 SEC) 40 H Hematology CBC w Diff MAN DIFF ORDERED WBC (4.8 - 10.8 /CUMM) 16.1 H RBC (4.70 - 6.10 /CUMM) 2.15 L Hgb (14.0 - 18.0 G/DL) 8.2 L Hct (42 - 52 %) 24.8 L MCV (80.0 - 94.0 FL) 115.2 H MCH (27.0 - 31.0 PG) 38.1 H RDW (11.5 - 14.5 %) 21.7 H Plt Count (130 - 400 /CUMM) 102 L MPV (7.4 - 10.4 FL) 8.4 Gran % (42.2 - 75.2 %) 81.0 H Lymphocytes % (20.5 - 51.1 %) 17.1 L Monocytes % (1.7 - 9.3 %) 1.0 L Eosinophils % (0 - 5 %) 0.8 Basophils % (0.0 - 2.0 %) 0.1 Absolute Granulocytes (1.4 - 6.5 /CUMM) 13.0 H Segmented Neutrophils (42.2 - 75.2 %) 76 H Band Neutrophils (0.0 - 5.0 %) 1 Absolute Lymphocytes (1.2 - 3.4 /CUMM) 2.8 Lymphocytes (20.5 - 51.1 %) 18 L Monocytes (1.7 - 9.3 %) 4 Absolute Monocytes (0.10 - 0.60 /CUMM) 0.2 Eosinophils (0 - 5.0 %) 1 Absolute Eosinophils (0.0 - 0.7 /CUMM) 0.1 Absolute Basophils (0.0 - 0.2 /CUMM) 0 Nucleated RBCs (0.0 - 0.0 /100WBC) 1 H Platelet Estimate (ADEQUATE) ADEQUATE Polychromasia 1+ Poikilocytosis 1+ Anisocytosis 3+ Macrocytic Cells 3+ Target Cells RARE Ovalocytes 1+ Stomatocytes FEW Elliptocytes FEW PUBS MCHC (33.0 - 37.0 G/DL) 33.1 Other Body Source Fld Total RBCs Counted (%) 100 Serology Hepatitis A IgM Ab (NONREACTIVE) NONREACTIVE Hep Bs Antigen (NONREACTIVE) NONREACTIVE Hep B Core IgM Ab Conf (NONREACTIVE) NONREACTIVE Hepatitis C Antibody (NONREACTIVE) NONREACTIVE Toxicology Salicylates (0 - 20.0 mg/dL) < 1.0 Acetaminophen (10.0 - 30.0 ug/mL) < 10.0 L Serum Alcohol (<10 MG/DL) < 10.0 Imaging/Other Studies: CT IMPRESSION: Hepatosplenomegaly. Abdominal ascites. Bilateral pleural effusions. Echo: Normal left ventricular size, wall thickness and systolic function with no obvious regional wall motion abnormalities. Mild left atrial dilatation. No significant valve abnormalities. Pulmonary artery systolic pressure is mildly elevated at 40 mm Hg. Dilated IVC. Physiologic valvular regurgitation.
--- NOTE | 2016-06-08 09:49 | PN- CRCU ---
Subjective HPI/Critical Care Issues: More awake alert still on 3% normal saline No shortness of breath no nausea no seizures Patient is making adequate urine Afebrile vital signs otherwise stable Significant data reviewed sodium 120 potassium 3.8 magnesium to be checked later Continues to be anemic hemoglobin 7.8 which is slowly drifting down no evidence suggestive of active GI bleed so far Tox screen reviewed CT reviewed Echocardiogram showed mild pulmonary hypertension of 40 normal systolic function dilated IVC Objective Current Medications: Current Medications Sig/Sonja Start time Last Medication Dose Route Stop Time Status Admin Cyanocobalamin/ 1 BAG DAILY 06/07 1818 DC Thiamine/Pyridoxine IV 06/09 1759 Sodium Chloride 1,000 ML Folic Acid 1 MG DAILY 06/08 1000 AC PO Folic Acid 1 MG DAILY 06/07 1803 DC PO 06/09 1001 Furosemide 80 MG Q8 06/07 1330 AC 06/08 IV 0512 Lorazepam 0.5 MG ONCE 06/12 0000 DC PO 06/12 0001 Lorazepam 0.5 MG Q6H 06/11 0000 DC PO 06/11 1801 Lorazepam 1 MG Q6H 06/10 0000 DC PO 06/10 1201 Lorazepam 1.5 MG Q6 06/08 0600 DC PO 06/08 1801 Lorazepam 1 MG Q2P PRN 06/07 1830 AC IV Lorazepam 2 MG Q6 06/07 1818 AC 06/08 IV 0537 Lorazepam 2 MG ONCE ONE 06/07 1800 CAN PO 06/07 1801 Lorazepam 2 MG Q6 06/07 1800 DC PO 06/08 0001 Lorazepam 2 MG Q2P PRN 06/07 1800 AC IV Magnesium Oxide 400 MG BID 06/08 1000 AC 06/08 PO 06/08 2201 0908 Magnesium Oxide 400 MG BID 06/07 1000 DC 06/07 PO 06/07 2201 2144 Multivitamins 1 TAB DAILY 06/08 1000 UNVr PO Multivitamins 1 TAB DAILY 06/07 1804 DC PO Nystatin 1 LAURENT TID PRN 06/07 0915 AC TOP Pantoprazole Sodium 40 MG DAILY 06/07 1000 AC 06/08 IV 0908 Potassium Chloride 40 MEQ ONCE ONE 06/08 0900 DC 06/08 PO 06/08 0901 0905 Sodium Chloride 500 ML Q12H 06/07 0915 DC 06/07 IV 2347 Thiamine HCl 100 MG DAILY 06/08 1000 UNVr PO 06/10 1001 Thiamine HCl 100 MG DAILY 06/07 1803 DC PO 06/09 1001 Vital Signs & I&O Last 24 Hrs of Vitals and I&O: Vital Signs Date Time Temp Pulse Resp B/P Pulse O2 O2 Flow FiO2 Ox Delivery Rate 06/08 0600 82 16 145/57 06/08 0400 98.8 83 22 120/36 06/08 0400 94 Room Air 06/08 0000 Room Air 06/08 0000 98.0 84 20 120/60 06/08 0000 98.0 84 16 120/60 06/07 2200 98.1 84 22 127/50 06/07 2000 98.0 85 23 127/45 06/07 1800 98.4 86 21 127/43 06/07 1600 98.4 92 18 142/48 06/07 1600 94 Room Air 06/07 1600 98.4 92 18 142/48 94 Room Air Room Air 06/07 1400 90 18 144/48 06/07 1200 99.0 90 18 118/50 06/07 1200 96 Room Air 06/07 1000 88 18 119/49 Intake & Output 06/08 1600 06/08 0800 06/08 0000 Intake Total 220 280 Output Total 1100 165 Balance -880 115 Intake, IV 220 280 Output, Urine 1100 165 Patient 232 lb Weight Impression/Plan Impression/Plan Impression/Plan: Physical Exam General Appearance Oriented X3, Cooperative, Lethargic, drowsy on examination Skin No Rashes, No Significant Lesion, No spider nevi HEENT Atraumatic, PERRLA, EOMI, Scleral icterus present Neck Supple, +2 Carotid Pulse wo Bruit Lymphatic Cervical nl Cardiovascular Regular Rate, Normal S1, Normal S2 Lungs Decreased breath sounds bilateral bases Abdomen Distention. + shifting dullness. +hepatosplenomegaly. Nontender to diffuse palpation. Neurological Normal Speech, Normal Tone Extremities No Clubbing, No Cyanosis, 4+ pitting edema of bilateral lower extremities extending to the groin Vascular Pulses Symmetrical SIGNIFICANT DATA Creatinine 0.6 sodium 111 liver enzymes are elevated total bilirubin was 2.9 his ferritin level was 523 alcohol level was low urine symptoms was 547 his urine screen was positive for venous and benzo white count 13.2 hemoglobin was low at 7.7 initially hemoglobin was 8.2 and his platelets have been low at 87. INR was elevated at 2.61 CT scan of abdomen and pelvis reviewed which shows significant hepatosplenomegaly with ascites effusions. IMPRESSION This is a 31-year-old unfortunate gentleman with history of PTSD, chronic alcohol abuse, significant psychiatric history, gastritis, hypertension, previous history of hypothyroidism, history suggestive of significant liver disease, significant anemia now comes in with * Profound hyponatremia which is very severe which likely chronic as he seems to be well compensated. He has hypervolemic hypokalemia likely related to decompensated liver disease with hepatosplenomegaly with portal hypertension. He is at risk for central demyelinating syndrome with rapid correction. slow correction ongoing * IMproving volume overload most likely related to decompensated liver disease. * Significant electrolyte abnormality improving * Significant liver dysfunction with high INR increased bilirubin with MADDREY score of 72 * Significant anemia and thrombocytopenia with severe macrocytosis. NO active bleeding RECOMMENDATION * Keep in ICU * Gentle diuresis per renal * Repeat blood work per renal * Replace potassium and magnesium by mouth * PO folic acid thiamine, and give vit k 10 mg po daily for 2-3 days * IV f and fluid restriction per renal * Keep him on low sodium 600 cc fluid restriction diet Prognosis is very poor Watch for alcohol withdrawal syndrome and if needed give very low dose benzos PT is critically ill tts 40 mins discussed with mother
[2016-06-09] VITALS (7 sets, daily range): BP systolic 126–137; BP diastolic 53–78
[2016-06-09 05:14] LABS: ABSOLUTE BASOPHIL COUNT 0 /CUMM (0.0-0.2); ABSOLUTE EOSINOPHIL COUNT 0.1 /CUMM (0.0-0.7); ABSOLUTE GRANULOCYTE CT 7.9 /CUMM (1.4-6.5); ABSOLUTE LYMPH COUNT 3.3 /CUMM (1.2-3.4); ABSOLUTE MONOCYTE COUNT 0.7 /CUMM (0.10-0.60); BASOPHIL % 0.3 % (0.0-2.0); EOSINOPHIL % 1.2 % (0-5); GRANULOCYTE % 64.9 % (42.2-75.2); HEMATOCRIT 23.9 % (42-52); MEAN CORPUSCULAR HGB 38.8 PG (27.0-31.0); MEAN CORPUSCULAR VOLUME 117.5 FL (80.0-94.0); MEAN PLATELET VOLUME 8.1 FL (7.4-10.4); PLATELET COUNT 85 /CUMM (130-400); RBC DISTRIBUTION WIDTH 21.5 % (11.5-14.5); RED BLOOD CELL CT 2.03 /CUMM (4.70-6.10); WHITE BLOOD CELL COUNT 12.1 /CUMM (4.8-10.8)
--- NOTE | 2016-06-09 08:49 | PN- Resident CRCU ---
Subjective HPI/CRCU Issues: On telemetry, noted bradycardia down to 37. Pt seen today, was awake, alert, oriented. Complains of hand numbness/weakness, with non focal neurological findings. He continues to have bilateral pitting edema, ascites, and decreased breath sounds at the bases most likely due to pleural effusion. This am's lab reviewed, Na 127, K 3.1, given [id number] kdur. Mag 1.8. T bili 2.8, AST 122. Lasix has been changed to 80 q12. Plan to decrease lasix and start spironolactone in am. Continue to follow up na and K at noon and 4pm. Objective Vital Signs & I&O Last 8 Hrs of Vitals and I&O: Intake & Output 06/09 1600 06/09 0800 06/09 0000 Intake Total 240 100 200 Output Total 1550 1550 600 Balance -1310 -1450 -400 Intake, IV 0 0 Intake, Oral 240 100 200 Number 0 0 Bowel Movements Output, Urine 1550 1550 600 Laboratory Tests 06/09 06/09 06/08 06/08 0855 0430 2255 1920 Chemistry Sodium (137 - 145 mmol/L) 127 L 126 L 122 L 122 L Potassium (3.5 - 5.1 mmol/L) 3.1 L 3.4 L 3.4 L 3.6 Chloride (98 - 107 mmol/L) 84 L 85 L 82 L 82 L Carbon Dioxide (22 - 30 mmol/L) 34 H 32 H 31 H 31 H Anion Gap (5 - 16) 10 10 9 9 BUN (9 - 20 mg/dL) 24 H 27 H 27 H 28 H Creatinine (0.7 - 1.2 mg/dL) 0.7 0.7 0.8 0.8 Estimated GFR (>60 ml/min) > 60 > 60 > 60 > 60 Glucose (65 - 99 mg/dL) 82 77 89 93 Calcium (8.4 - 10.2 mg/dL) 8.3 L 8.4 8.4 8.4 Phosphorus (2.5 - 4.5 mg/dL) 3.5 3.9 4.2 4.6 H Magnesium (1.6 - 2.3 mg/dL) 1.7 1.8 1.9 1.9 Total Bilirubin (0.2 - 1.3 mg/dL) 3.0 H 2.8 H 2.6 H 2.7 H AST (17 - 59 U/L) 146 H 127 H 96 H 95 H ALT (21 - 72 U/L) 72 66 61 59 Albumin (3.5 - 5.0 g/dL) 3.5 3.5 3.6 3.6 Hematology CBC w Diff NO MAN DIFF REQ WBC (4.8 - 10.8 /CUMM) 12.1 H RBC (4.70 - 6.10 /CUMM) 2.03 L Hgb (14.0 - 18.0 G/DL) 7.9 L Hct (42 - 52 %) 23.9 L MCV (80.0 - 94.0 FL) 117.5 H MCH (27.0 - 31.0 PG) 38.8 H RDW (11.5 - 14.5 %) 21.5 H Plt Count (130 - 400 /CUMM) 85 L MPV (7.4 - 10.4 FL) 8.1 Gran % (42.2 - 75.2 %) 64.9 Lymphocytes % (20.5 - 51.1 %) 27.5 Monocytes % (1.7 - 9.3 %) 6.1 Eosinophils % (0 - 5 %) 1.2 Basophils % (0.0 - 2.0 %) 0.3 Absolute Granulocytes (1.4 - 6.5 /CUMM) 7.9 H Absolute Lymphocytes (1.2 - 3.4 /CUMM) 3.3 Absolute Monocytes (0.10 - 0.60 /CUMM) 0.7 H Absolute Eosinophils (0.0 - 0.7 /CUMM) 0.1 Absolute Basophils (0.0 - 0.2 /CUMM) 0 PUBS MCHC (33.0 - 37.0 G/DL) 33.0 03/24 0324 06/08 1535 1434 1434 Chemistry Sodium (137 - 145 mmol/L) 121 L Potassium (3.5 - 5.1 mmol/L) 3.6 Chloride (98 - 107 mmol/L) 83 L Carbon Dioxide (22 - 30 mmol/L) 29 Anion Gap (5 - 16) 10 BUN (9 - 20 mg/dL) 29 H Creatinine (0.7 - 1.2 mg/dL) 0.7 Estimated GFR (>60 ml/min) > 60 Glucose (65 - 99 mg/dL) 98 Calcium (8.4 - 10.2 mg/dL) 8.5 Phosphorus (2.5 - 4.5 mg/dL) 4.6 H Magnesium (1.6 - 2.3 mg/dL) 1.8 Total Bilirubin (0.2 - 1.3 mg/dL) 2.8 H AST (17 - 59 U/L) 99 H ALT (21 - 72 U/L) 63 Albumin (3.5 - 5.0 g/dL) 3.5 Hematology Lymphocytes (%) 50 % Normal PMNs (%) 15 Misc Hematology Test (%) Other Body Source Fluid WBC (0 - 5 /CUMM) 450 H Fld Total RBCs Counted (0 /CUMM) 16319 H Fluid Glucose (mg/dL) 106 Fluid Total Protein (g/dL) 2.3 Fluid Albumin (g/dL) 1.2 Fluid LDH (U/L) 161 Fluid Amylase (U/L) < 30 Urines Ur Random Creatinine Cancelled U Random Total Protein Cancelled Microbiology Date/Time Procedure - Status Source Growth 06/08 1434 Body Fluid Culture - RES BODY FLUID 06/08 1434 Gram Stain - RES BODY FLUID Vital Signs Date Time Temp Pulse Resp B/P Pulse O2 O2 Flow FiO2 Ox Delivery Rate 06/09 0800 98.7 79 18 135/53 06/09 0800 98.7 79 18 130/64 98 Nasal 1.0L Cannula 06/09 0800 98 Nasal 1.0L Cannula 06/09 0600 76 17 134/67 06/09 0400 98.9 77 17 131/57 06/09 0400 96 Nasal 1.0L Cannula 06/09 0000 98.7 77 12 137/59 06/09 0000 98.7 77 12 137/59 95 Nasal 1.0L Cannula 06/09 0000 95 Nasal 1.0L Cannula 06/08 2200 78 13 138/57 06/09 1999 97.7 78 20 137/62 06/09 1999 96 Nasal 1.0L Cannula 06/08 1800 81 16 128/65 06/08 1600 Room Air 06/08 1600 98.8 84 18 120/50 06/08 1600 98.8 84 20 120/50 95 Room Air 06/08 1400 85 20 134/53 Intake & Output 06/09 1600 Intake Total 240 Output Total 1550 Balance -1310 Intake, Oral 240 Output, Urine 1550 Exam General Appearance: alert, awake, comfortable Head: normal appearance Respiratory: dec breath sounds at the bases Cardiovascular: regular rate/rhythm Gastrointestinal: + ascites, hepatomegaly, spleenomegaly Extremities: bilateral pitting edema Current Medications: Current Medications Sig/Sonja Start time Last Medication Dose Route Stop Time Status Admin Benzocaine/Menthol 1 YUNIEL Q2P PRN 06/09 0045 AC 06/09 PO 0556 Folic Acid 1 MG DAILY 06/08 1000 AC 06/09 PO 1022 Furosemide 40 MG DAILY 06/10 1000 AC IV Furosemide 80 MG ONCE ONE 06/09 1800 AC IV 06/09 1801 Furosemide 80 MG Q8 06/07 1330 DC 06/09 IV 0556 Lorazepam 0.5 MG ONCE 06/12 0000 DC PO 06/12 0001 Lorazepam 0.5 MG Q6H 06/11 0000 DC PO 06/11 1801 Lorazepam 1 MG Q6H 06/10 0000 DC PO 06/10 1201 Lorazepam 0.5 MG ONCE ONE 06/09 0430 DC 06/09 PO 06/09 0431 0420 Lorazepam 1 MG Q2P PRN 06/07 1830 AC IV Lorazepam 2 MG Q2P PRN 06/07 1800 AC IV Magnesium Oxide 400 MG BID 06/08 1000 DC 06/08 PO 06/08 2201 2222 Multivitamins 1 TAB DAILY 06/08 1000 AC 06/09 PO 1021 Nystatin 1 LAURENT TID PRN 06/07 0915 AC 06/09 TOP 1142 Pantoprazole Sodium 40 MG DAILY 06/07 1000 AC 06/09 IV 1023 Phytonadione 10 MG DAILY 06/08 1013 AC 06/09 PO 06/10 1001 1022 Potassium Chloride 60 MEQ ONCE ONE 06/09 1030 DC 06/09 PO 06/09 1031 1037 Potassium Chloride 40 MEQ ONCE ONE 06/09 0600 CAN PO 06/09 0601 Potassium Chloride 40 MEQ ONCE ONE 06/09 0400 DC 06/09 PO 06/09 0401 0415 Potassium Chloride 40 MEQ ONCE ONE 06/08 2345 DC 06/08 PO 06/08 2346 2338 Spironolactone 100 MG DAILY 06/10 1000 AC PO Thiamine HCl 100 MG DAILY 06/08 1000 AC 06/09 PO 06/10 1001 1021 Impression/Plan Impression/Problem List Impression: Mr. Hoyt is a 31 year old gentleman with PMH alcoholic gastritis, alcoholic pancreatitis, alcohol abuse, tobacco abuse, HTN, PTSD, anxiety and possible hypothyroidism who presents with chief complaint of bilateral lower extremity edema. This edema has worsened over the last month, extends up into his thighs and has been associated with abdominal swelling for about one week. These symptoms occur in the presence of alcohol abuse for since 2006, 2 g tylenol use for over 2 years and severe PTSD. In the ED: Vital signs showed T 98.4, HR 93, RR 18, BP 126/58 and O2 saturation of 100% on room air. Labs were significant for WBC 16.1 with 81% granulocytes and 1 band, macrocytic anemia to 8.2/24.8 with MCV 115, thrombocytopenia to 102, Na 114, K 3.9, Cl 74, HCO3 27, AG 13, BUN 21, Cre 0.7, Glu 135, TBili 2.9, DBili 1.5, AST 89, ALT 47, Alk phos 182, ammonia >9, TSH 3.36, INR 2.61. UA showed positive nitrite, positive bili, 5-10 RBCs, 305 WBCs, few bacteria, many mucus. Abdominal/pelvis CT showed hepatosplenomegaly, moderate abdominal ascites and bilateral pleural effusions. Patient was admitted to the ICU for the following problems: Repiratory: Bilateral pleural effusions: Patient was found to have bilateral pleural effusion on abdominal CT upon admission,Noted on abdominal CT, no respiratory compromise, he has been satting in high 90s on room air. We'll keep monitoring oxygen saturation. Metabolic: Altered mental status in the setting of severe hyponatremia: Duration unknown whether acute or chronic,hypoosmolar hypervolemic hyponatremia, sodium level on admission 114>> 111, patient was started on 3% hypertonic saline (06/08), NPO, jack catheter was placed, started on IV lasix 80 mg TID. Neurochecks Q1 hours * Now off hypertonic saline * Na improved to 127. Lasix changed to 80 q12, to start lasix 40 qd and spiranolactone 100 in am * On 600 cc fluid restriction, will need to change 1200 cc fluid restriction in am * Nephro on board, will follow recs. # Hypokalemia - K 3.1 * Replete as needed GI: Decompensated liver failure: Likely 2/2 alcohol abuse, also further worseninglikely secondary to Tylenol, he has seen taking 2 g of Tylenol for almost 2 years, AST/ALT ratio close to 2:1 favoring alcoholic decompensation, elevated direct bili, abdominal CT showed evidence of Hepatosplenomegaly, Abdominal ascites and Bilateral pleural effusions, RUQ US showed evidence of fatty liver, Gallbladder containing sludge and a single polyp but no biliary dilatation, hepatitis panel negative. No evidence of SBP as of now * Paracentesis done on 06/08 * GI on board, with follow-up recommendations. Hematologic: Macrocytic Anemia: Likely chronic 2/2 alcohol consumption, however consider varices vs alcoholic gastritis as possible causes, low folate levels, iron studies and B12 normal, will hold off NSAIDs Will guiac all stools, monitor CBC closely. patient deffered guaic last night. Will reassess. * Continue Folic acid po daily. Thrombocytopenia: Likely secondary to decompensated liver disease, level upon presentation 104>>87 , no evidence of any active bleeding, will continue to monitor. * Vit K given PO 10mgx 3 days * Monitor daily platelet level and watch for any occult or active bleeding. CEO: Alcohol detoxification: Patient presented with altered mental status, scheduled Ativan was held until his mentation improves, Psychiatric and social work consult. * Cont multivitamin, thiamine, folate * Secondly to fluid restriction will be holding off banana bag * We'll closely monitor CIWA and watch for any DTs. Can give low dose ativan as needed if any signs of alcohol withdrawal PTSD: Patient has a history of posttraumatic stress disorder, has been on Seroquel whic was held upon admission secondary to altered mental status. We'll resume once his mentation improves, psychiatry on board, will follow recommendations. CVS: Bilateral lower extremity swelling Patient presented with 4+ pitting edema of bilateral lower extremities with decreased mobility due to lower extremity pain, likely secondary to fluid overload secondary to decompensated liver disease, a bilateral LE dopplers to rule out DVT, will follow-up results. - Echocardiogram pending to rule out any cardiac cause: Normal left ventricular size, wall thickness and systolic function with no obvious regional wall motion abnormalities. Normal left ventricular diastolic filling pattern for age. The ejection fraction is visually estimated at >65 % Diet: regular diet chopped and thin , 600 ml fluid restriction , 2 gm sodium restriction DVTP: ALPS FULL CODE Problem List: 1. Transaminitis 2. Hyponatremia Pain Ratin Tomorrow's Labs & Rationales: bep mag lft for transaminitis , low k, na, mag cbc for anemia thrombocytopenia Plan DVT/Prophylaxis: pharmacological
--- NOTE | 2016-06-09 09:00 | NUR ---
Patient is drowsey but easily arousable, oriented x's 3- able to follow commands and answer questions appropriately. CIWA-0- NSR on tele monitor, HR= 70-80's. SBP" 130's and pt denies chest pain. On RA lungs clear, O2 sats 96%. Abdomen is distended and soft with + bowel sounds, non tender. Bandaide to left abd is CDI s/p paracentesis yesterday. Pope in place draining large amounts of clear yellow urine- He is receiving IV lasix. Tolerated po well however intake is poor. Duoderm is intact to coccyx- unstageable pressure injury. BLE with +2 edema with +1 generalized edema. Nystatin applied to groin area. Pt denies pain and vitals are stable. Pts mom at the bedside and updated on POC. To be transferred to General Medicine. Will continue to monitor patient.
--- NOTE | 2016-06-09 09:35 | PN- Pulmonary ---
Subjective HPI/Critical Care Issues: Slowly improving No significant overnight events Continues to be on diuretics Afebrile Did diurese significantly yesterday Off all drips On fluid restricted diet His paracentesis fluid did show low protein and albumin is 1.2 his total protein was 6.5 and his albumin is 3.5. His total bilirubin was 2.8 which is relatively stable since admission INR has not been checked lately which needs to be read down All cultures are negative Previous CT reviewed Objective Current Medications: Current Medications Sig/Sonja Start time Last Medication Dose Route Stop Time Status Admin Benzocaine/Menthol 1 YUNIEL Q2P PRN 06/09 0045 AC 06/09 PO 0556 Folic Acid 1 MG DAILY 06/08 1000 AC 06/08 PO 1222 Furosemide 80 MG Q8 06/07 1330 AC 06/09 IV 0556 Lorazepam 0.5 MG ONCE 06/12 0000 DC PO 06/12 0001 Lorazepam 0.5 MG Q6H 06/11 0000 DC PO 06/11 1801 Lorazepam 1 MG Q6H 06/10 0000 DC PO 06/10 1201 Lorazepam 0.5 MG ONCE ONE 06/09 0430 DC 06/09 PO 06/09 0431 0420 Lorazepam 1 MG Q2P PRN 06/07 1830 AC IV Lorazepam 2 MG Q6 06/07 1818 DC 06/08 IV 1220 Lorazepam 2 MG Q2P PRN 06/07 1800 AC IV Magnesium Oxide 400 MG BID 06/08 1000 DC 06/08 PO 06/08 2201 2222 Multivitamins 1 TAB DAILY 06/08 1000 AC 06/08 PO 1222 Nystatin 1 LAURENT TID PRN 06/07 0915 AC TOP Pantoprazole Sodium 40 MG DAILY 06/07 1000 AC 06/08 IV 0908 Phytonadione 10 MG DAILY 06/08 1013 AC 06/08 PO 06/10 1001 1222 Potassium Chloride 40 MEQ ONCE ONE 06/09 0600 CAN PO 06/09 0601 Potassium Chloride 40 MEQ ONCE ONE 06/09 0400 DC 06/09 PO 06/09 0401 0415 Potassium Chloride 40 MEQ ONCE ONE 06/08 2345 DC 06/08 PO 06/08 2346 2338 Thiamine HCl 100 MG DAILY 06/08 1000 AC 06/08 PO 06/10 1001 1222 Laboratory Tests 06/09 06/09 06/08 0855 0430 2255 Chemistry Sodium (137 - 145 mmol/L) Pending 126 L 122 L Potassium (3.5 - 5.1 mmol/L) Pending 3.4 L 3.4 L Chloride (98 - 107 mmol/L) Pending 85 L 82 L Carbon Dioxide (22 - 30 mmol/L) Pending 32 H 31 H Anion Gap (5 - 16) Pending 10 9 BUN (9 - 20 mg/dL) Pending 27 H 27 H Creatinine (0.7 - 1.2 mg/dL) Pending 0.7 0.8 Estimated GFR (>60 ml/min) > 60 > 60 Glucose (65 - 99 mg/dL) Pending 77 89 Calcium (8.4 - 10.2 mg/dL) Pending 8.4 8.4 Phosphorus (2.5 - 4.5 mg/dL) Pending 3.9 4.2 Magnesium (1.6 - 2.3 mg/dL) Pending 1.8 1.9 Total Bilirubin (0.2 - 1.3 mg/dL) Pending 2.8 H 2.6 H AST (17 - 59 U/L) Pending 127 H 96 H ALT (21 - 72 U/L) Pending 66 61 Albumin (3.5 - 5.0 g/dL) Pending 3.5 3.6 Hematology CBC w Diff NO MAN DIFF REQ WBC (4.8 - 10.8 /CUMM) 12.1 H RBC (4.70 - 6.10 /CUMM) 2.03 L Hgb (14.0 - 18.0 G/DL) 7.9 L Hct (42 - 52 %) 23.9 L MCV (80.0 - 94.0 FL) 117.5 H MCH (27.0 - 31.0 PG) 38.8 H RDW (11.5 - 14.5 %) 21.5 H Plt Count (130 - 400 /CUMM) 85 L MPV (7.4 - 10.4 FL) 8.1 Gran % (42.2 - 75.2 %) 64.9 Lymphocytes % (20.5 - 51.1 %) 27.5 Monocytes % (1.7 - 9.3 %) 6.1 Eosinophils % (0 - 5 %) 1.2 Basophils % (0.0 - 2.0 %) 0.3 Absolute Granulocytes (1.4 - 6.5 /CUMM) 7.9 H Absolute Lymphocytes (1.2 - 3.4 /CUMM) 3.3 Absolute Monocytes (0.10 - 0.60 /CUMM) 0.7 H Absolute Eosinophils (0.0 - 0.7 /CUMM) 0.1 Absolute Basophils (0.0 - 0.2 /CUMM) 0 PUBS MCHC (33.0 - 37.0 G/DL) 33.0 06/08 06/08 06/08 06/08 06/08 1920 1535 1434 1434 1118 Chemistry Sodium (137 - 145 mmol/L) 122 L 121 L 121 L Potassium (3.5 - 5.1 mmol/L) 3.6 3.6 3.8 Chloride (98 - 107 mmol/L) 82 L 83 L 83 L Carbon Dioxide (22 - 30 mmol/L) 31 H 29 28 Anion Gap (5 - 16) 9 10 11 BUN (9 - 20 mg/dL) 28 H 29 H 28 H Creatinine (0.7 - 1.2 mg/dL) 0.8 0.7 0.7 Estimated GFR (>60 ml/min) > 60 > 60 > 60 Glucose (65 - 99 mg/dL) 93 98 103 H Calcium (8.4 - 10.2 mg/dL) 8.4 8.5 8.5 Phosphorus (2.5 - 4.5 mg/dL) 4.6 H 4.6 H 4.4 Magnesium (1.6 - 2.3 mg/dL) 1.9 1.8 1.8 Total Bilirubin (0.2 - 1.3 mg/dL) 2.7 H 2.8 H 2.8 H AST (17 - 59 U/L) 95 H 99 H 95 H ALT (21 - 72 U/L) 59 63 57 Albumin (3.5 - 5.0 g/dL) 3.6 3.5 3.5 Hematology Lymphocytes (%) 50 % Normal PMNs (%) 15 Misc Hematology Test (%) Other Body Source Fluid WBC (0 - 5 /CUMM) 450 H Fld Total RBCs Counted (0 /CUMM) 65875 H Fluid Glucose (mg/dL) 106 Fluid Total Protein (g/dL) 2.3 Fluid Albumin (g/dL) 1.2 Fluid LDH (U/L) 161 Fluid Amylase (U/L) < 30 Urines Ur Random Creatinine Cancelled U Random Total Protein Cancelled 06/08 06/08 06/08 0700 0313 0300 Chemistry Sodium (137 - 145 mmol/L) 121 L 120 L Cancelled Potassium (3.5 - 5.1 mmol/L) 3.8 4.1 Chloride (98 - 107 mmol/L) 81 L 82 L Carbon Dioxide (22 - 30 mmol/L) 29 29 Anion Gap (5 - 16) 11 8 BUN (9 - 20 mg/dL) 27 H 27 H Creatinine (0.7 - 1.2 mg/dL) 0.8 0.8 Estimated GFR (>60 ml/min) > 60 > 60 BUN/Creatinine Ratio (7 - 25 %) 33.8 H Glucose (65 - 99 mg/dL) 118 H Calcium (8.4 - 10.2 mg/dL) 8.6 Phosphorus (2.5 - 4.5 mg/dL) 5.0 H Magnesium (1.6 - 2.3 mg/dL) 1.8 Total Bilirubin (0.2 - 1.3 mg/dL) 2.9 H AST (17 - 59 U/L) 87 H ALT (21 - 72 U/L) 56 Albumin (3.5 - 5.0 g/dL) 3.5 Hematology CBC w Diff NO MAN DIFF REQ WBC (4.8 - 10.8 /CUMM) 11.1 H RBC (4.70 - 6.10 /CUMM) 2.01 L Hgb (14.0 - 18.0 G/DL) 7.8 L Hct (42 - 52 %) 23.4 L MCV (80.0 - 94.0 FL) 116.2 H MCH (27.0 - 31.0 PG) 38.8 H RDW (11.5 - 14.5 %) 21.8 H Plt Count (130 - 400 /CUMM) 87 L MPV (7.4 - 10.4 FL) 8.2 Gran % (42.2 - 75.2 %) 72.3 Lymphocytes % (20.5 - 51.1 %) 21.8 Monocytes % (1.7 - 9.3 %) 4.9 Eosinophils % (0 - 5 %) 0.7 Basophils % (0.0 - 2.0 %) 0.3 Absolute Granulocytes (1.4 - 6.5 /CUMM) 8.0 H Absolute Lymphocytes (1.2 - 3.4 /CUMM) 2.4 Absolute Monocytes (0.10 - 0.60 /CUMM) 0.5 Absolute Eosinophils (0.0 - 0.7 /CUMM) 0.1 Absolute Basophils (0.0 - 0.2 /CUMM) 0 PUBS MCHC (33.0 - 37.0 G/DL) 33.3 06/08 06/07 06/07 06/07 06/07 0045 0 2009 1805 1800 Chemistry Sodium (137 - 145 mmol/L) 117 *L 115 *L 115 *L 115 *L Cancelled Potassium (3.5 - 5.1 mmol/L) 4.5 4.6 4.6 Chloride (98 - 107 mmol/L) 78 L 78 L 78 L Carbon Dioxide (22 - 30 mmol/L) 27 29 28 Anion Gap (5 - 16) 10 8 9 BUN (9 - 20 mg/dL) 27 H 26 H 26 H Creatinine (0.7 - 1.2 mg/dL) 0.8 0.8 0.8 Estimated GFR (>60 ml/min) > 60 > 60 > 60 Glucose (65 - 99 mg/dL) 117 H 117 H 117 H Calcium (8.4 - 10.2 mg/dL) 8.8 8.8 8.9 Phosphorus (2.5 - 4.5 mg/dL) 5.1 H 5.0 H 4.9 H Magnesium (1.6 - 2.3 mg/dL) 1.8 1.8 1.8 Total Bilirubin (0.2 - 1.3 mg/dL) 3.0 H 3.1 H 2.9 H AST (17 - 59 U/L) 86 H 85 H 84 H ALT (21 - 72 U/L) 57 57 57 Albumin (3.5 - 5.0 g/dL) 3.6 3.5 3.5 06/07 06/07 06/07 06/07 06/07 1615 1600 1400 1400 1202 Chemistry Sodium (137 - 145 mmol/L) 115 *L Cancelled Cancelled 112 *L 113 *L Potassium (3.5 - 5.1 mmol/L) 4.7 4.6 Chloride (98 - 107 mmol/L) 78 L 77 L Carbon Dioxide (22 - 30 mmol/L) 27 30 Anion Gap (5 - 16) 10 5 BUN (9 - 20 mg/dL) 26 H 26 H Creatinine (0.7 - 1.2 mg/dL) 0.8 0.8 Estimated GFR (>60 ml/min) > 60 > 60 Glucose (65 - 99 mg/dL) 113 H 112 H Calcium (8.4 - 10.2 mg/dL) 8.9 9.2 Phosphorus (2.5 - 4.5 mg/dL) 4.9 H 4.9 H Magnesium (1.6 - 2.3 mg/dL) 1.7 1.7 Total Bilirubin (0.2 - 1.3 mg/dL) 3.0 H 3.0 H AST (17 - 59 U/L) 81 H 77 H ALT (21 - 72 U/L) 58 48 Albumin (3.5 - 5.0 g/dL) 3.5 3.5 06/07 06/07 1025 1000 Blood Gas pH (7.35 - 7.45 PH) 7.54 H pCO2 (35 - 45 TORR) 33 L pO2 (80 - 100 TORR) 89 HCO3 (21 - 28 MEQ/L) 27 ABG O2 Sat (Measured) (>96.0 %) 97.0 P-50 (Temp Corrected) N Carboxyhemoglobin (1.5 - 5.0 %) 1.3 L O2 Concentration % .21 O2 Delivery Method RA Chemistry Sodium (137 - 145 mmol/L) 112 *L Miscellaneous Phlebotomy Draw Site RIGHT RADIAL Microbiology Date/Time Procedure - Status Source Growth 06/08 1434 Body Fluid Culture - RES BODY FLUID 06/08 1434 Gram Stain - RES BODY FLUID 06/07 1020 Urine Culture - RES URINE ROUT 06/07 0500 Surveillance Culture - COMP UPPER RESP 06/07 0500 Surveillance Culture - COMP GI Vital Signs & I&O Last 24 Hrs of Vitals and I&O: Vital Signs Date Time Temp Pulse Resp B/P Pulse O2 O2 Flow FiO2 Ox Delivery Rate 06/09 08 98.7 79 18 135/53 06/09 0800 98.7 79 18 130/64 98 Nasal 1.0L Cannula 06/09 08 98 Nasal 1.0L Cannula 06/09 0600 76 17 134/67 06/09 0400 98.9 77 17 131/57 06/09 0400 96 Nasal 1.0L Cannula 06/09 0000 98.7 77 12 137/59 06/09 0000 98.7 77 12 137/59 95 Nasal 1.0L Cannula 06/09 0000 95 Nasal 1.0L Cannula 06/08 2200 78 13 138/57 06/09 1999 97.7 78 20 137/62 06/09 1999 96 Nasal 1.0L Cannula 06/08 1800 81 16 128/65 06/08 1600 Room Air 06/08 1600 98.8 84 18 120/50 06/08 1600 98.8 84 20 120/50 95 Room Air 06/08 1400 85 20 134/53 06/08 1200 Room Air 06/08 1200 85 20 114/69 06/08 1000 82 16 118/46 Intake & Output 06/09 1600 06/09 0800 06/09 0000 Intake Total 100 200 Output Total 1550 600 Balance -1450 -400 Intake, IV 0 0 Intake, Oral 100 200 Number 0 0 Bowel Movements Output, Urine 1550 600 Impression/Plan Impression/Plan Impression/Plan: Physical Exam General Appearance Oriented X3, Cooperative, Lethargic, drowsy on examination Skin No Rashes, No Significant Lesion, No spider nevi HEENT Atraumatic, PERRLA, EOMI, Scleral icterus present Neck Supple, +2 Carotid Pulse wo Bruit Lymphatic Cervical nl Cardiovascular Regular Rate, Normal S1, Normal S2 Lungs Decreased breath sounds bilateral bases Abdomen Distention. + shifting dullness. +hepatosplenomegaly. Nontender to diffuse palpation. Neurological Normal Speech, Normal Tone Extremities No Clubbing, No Cyanosis, 4+ pitting edema of bilateral lower extremities extending to the groin Vascular Pulses Symmetrical SIGNIFICANT DATA Creatinine 0.6 sodium 111 liver enzymes are elevated total bilirubin was 2.9 his ferritin level was 523 alcohol level was low urine symptoms was 547 his urine screen was positive for venous and benzo white count 13.2 hemoglobin was low at 7.7 initially hemoglobin was 8.2 and his platelets have been low at 87. INR was elevated at 2.61 CT scan of abdomen and pelvis reviewed which shows significant hepatosplenomegaly with ascites effusions. IMPRESSION This is a 31-year-old unfortunate gentleman with history of PTSD, chronic alcohol abuse, significant psychiatric history, gastritis, hypertension, previous history of hypothyroidism, history suggestive of significant liver disease, significant anemia now comes in with * Resolving Profound hyponatremia which is very severe which likely chronic as he seems to be well compensated. He has hypervolemic hypokalemia likely related to decompensated liver disease with hepatosplenomegaly with portal hypertension. Correction has been done slowly and now better * IMproving volume overload most likely related to decompensated liver disease. * Significant electrolyte abnormality improving * Significant liver dysfunction with high INR increased bilirubin with MADDREY score of 72 * Significant anemia and thrombocytopenia with severe macrocytosis. NO active bleeding RECOMMENDATION * Ok to the floor * Gentle diuresis per renal, Will reduce lasix to 80 q12 and from am lasix 40 qd with spiranolactone 100 mg * Repeat blood work now 12 and qd from am * Replace potassium and magnesium by mouth * PO folic acid, thiamine, and give vit k 10 mg po daily for 2- days * Cont fluid restriction till am and from am start low sodium 1200 cc fluid restriction * Watch for etoh withdrawal and use prn ativan low dose prn * Ok to the floor Prognosis is poor PT is critically ill tts 36 mins discussed with mother
--- NOTE | 2016-06-09 14:29 | PN- Gastroenterology ---
Assessment/Plan Assessment/Recommendations: Joyce is a 31 year old male with a history of etoh abuse who was admitted with anasarca, increased LFTs, and profound hyponatremia. He has a long standing history of etoh abuse over the past 10 years and likely has some fibrosis from this, but as his liver did not appear cirrhotic on the ct scan I am hopeful that if he able to completely abstain from etoh his liver function may return to normal. That being said, if he continues to drink he likely will ultimately develop fulminant hepatic failure. He currently seems motivated to get sober, but obviously time will tell. He does have a markedly elevated discriminant function which would qualify for steroids, but as using steroids in alcoholic hepatitis is now somewhat controversial based on some newer studies would continue to observe him off of them for now. Uneverntful night, and now tranferred to the floor. Recommendations: 1. Advance to a low sodium diet as tolerated. 2. Monitor for signs of etoh withdrawal and treat with benzodiazepenes as needed 3. Continue to observe off of steroids 4. Follow daily LFTs and INR for now (last INR was 06/07) 5. Social serice consult for etoh abuse 6. Low cell count in paracentesis fluid from yesterday. 7. Consideration will be given for an outpatient EGD to assess for varices and consideration will also be given for a liver transplant evaluation if his MELD remains over 15 (currently 18) after a six month period of sobriety. 8. Will also plan to repeat an US in 6 months for HCC screening and also to ensure stability of the gallbladder wall polyp 9. Treatment of hyponatremia and management of diuretics as per nephrology, but would recommend starting lasix 40mg and aldactone 100mg daily once electrolytes are corrected. Subjective Subjective: a Objective Vital Signs and I&Os Vital Signs Date Time Temp Pulse Resp B/P Pulse O2 O2 Flow FiO2 Ox Delivery Rate 06/09 1406 98.1 78 18 130/78 94 Nasal 2.0L Cannula 06/09 1400 98.1 78 18 130/78 06/09 0800 98.7 79 18 135/53 06/09 0800 98.7 79 18 130/64 98 Nasal 1.0L Cannula 06/09 0800 98 Nasal 1.0L Cannula 06/09 0600 76 17 134/67 06/09 0400 98.9 77 17 131/57 06/09 0400 96 Nasal 1.0L Cannula 06/09 98.7 77 12 137/59 06/09 98.7 77 12 137/59 95 Nasal 1.0L Cannula 06/09 0000 95 Nasal 1.0L Cannula 06/08 2200 78 13 138/57 06/09 1999 97.7 78 20 137/62 06/09 1999 96 Nasal 1.0L Cannula 06/08 1800 81 16 128/65 06/08 1600 Room Air 06/09 1599 98.8 84 18 120/50 06/09 1599 98.8 84 20 120/50 95 Room Air Intake & Output 06/09 1600 06/09 0400 06/08 1600 06/08 0400 06/07 040 Intake Total 580 200 588 280 220 0 Output Total 3100 600 2100 165 650 500 Balance -2520 -400 -1512 115 -430 -500 Intake, IV 0 0 318 280 150 Intake, Oral 580 200 270 70 0 Number 0 0 0 0 Bowel Movements Output, Urine 3100 600 2100 165 650 500 Patient 232 lb 232 lb 205 lb Weight Results Pertinent Lab Results: Laboratory Tests 06/09 06/09 06/08 06/08 0855 5404 0535 3760 Chemistry Sodium (137 - 145 mmol/L) 127 L 126 L 122 L 122 L Potassium (3.5 - 5.1 mmol/L) 3.1 L 3.4 L 3.4 L 3.6 Chloride (98 - 107 mmol/L) 84 L 85 L 82 L 82 L Carbon Dioxide (22 - 30 mmol/L) 34 H 32 H 31 H 31 H Anion Gap (5 - 16) 10 10 9 9 BUN (9 - 20 mg/dL) 24 H 27 H 27 H 28 H Creatinine (0.7 - 1.2 mg/dL) 0.7 0.7 0.8 0.8 Estimated GFR (>60 ml/min) > 60 > 60 > 60 > 60 Glucose (65 - 99 mg/dL) 82 77 89 93 Calcium (8.4 - 10.2 mg/dL) 8.3 L 8.4 8.4 8.4 Phosphorus (2.5 - 4.5 mg/dL) 3.5 3.9 4.2 4.6 H Magnesium (1.6 - 2.3 mg/dL) 1.7 1.8 1.9 1.9 Total Bilirubin (0.2 - 1.3 mg/dL) 3.0 H 2.8 H 2.6 H 2.7 H AST (17 - 59 U/L) 146 H 127 H 96 H 95 H ALT (21 - 72 U/L) 72 66 61 59 Albumin (3.5 - 5.0 g/dL) 3.5 3.5 3.6 3.6 Hematology CBC w Diff NO MAN DIFF REQ WBC (4.8 - 10.8 /CUMM) 12.1 H RBC (4.70 - 6.10 /CUMM) 2.03 L Hgb (14.0 - 18.0 G/DL) 7.9 L Hct (42 - 52 %) 23.9 L MCV (80.0 - 94.0 FL) 117.5 H MCH (27.0 - 31.0 PG) 38.8 H RDW (11.5 - 14.5 %) 21.5 H Plt Count (130 - 400 /CUMM) 85 L MPV (7.4 - 10.4 FL) 8.1 Gran % (42.2 - 75.2 %) 64.9 Lymphocytes % (20.5 - 51.1 %) 27.5 Monocytes % (1.7 - 9.3 %) 6.1 Eosinophils % (0 - 5 %) 1.2 Basophils % (0.0 - 2.0 %) 0.3 Absolute Granulocytes (1.4 - 6.5 /CUMM) 7.9 H Absolute Lymphocytes (1.2 - 3.4 /CUMM) 3.3 Absolute Monocytes (0.10 - 0.60 /CUMM) 0.7 H Absolute Eosinophils (0.0 - 0.7 /CUMM) 0.1 Absolute Basophils (0.0 - 0.2 /CUMM) 0 PUBS MCHC (33.0 - 37.0 G/DL) 33.0 06/08 06/08 06/08 06/08 06/08 1535 1434 1434 1118 0700 Chemistry Sodium (137 - 145 mmol/L) 121 L 121 L 121 L Potassium (3.5 - 5.1 mmol/L) 3.6 3.8 3.8 Chloride (98 - 107 mmol/L) 83 L 83 L 81 L Carbon Dioxide (22 - 30 mmol/L) 29 28 29 Anion Gap (5 - 16) 10 11 11 BUN (9 - 20 mg/dL) 29 H 28 H 27 H Creatinine (0.7 - 1.2 mg/dL) 0.7 0.7 0.8 Estimated GFR (>60 ml/min) > 60 > 60 > 60 BUN/Creatinine Ratio (7 - 25 %) 33.8 H Glucose (65 - 99 mg/dL) 98 103 H Calcium (8.4 - 10.2 mg/dL) 8.5 8.5 Phosphorus (2.5 - 4.5 mg/dL) 4.6 H 4.4 Magnesium (1.6 - 2.3 mg/dL) 1.8 1.8 Total Bilirubin (0.2 - 1.3 mg/dL) 2.8 H 2.8 H AST (17 - 59 U/L) 99 H 95 H ALT (21 - 72 U/L) 63 57 Albumin (3.5 - 5.0 g/dL) 3.5 3.5 Hematology Lymphocytes (%) 50 % Normal PMNs (%) 15 Misc Hematology Test (%) Other Body Source Fluid WBC (0 - 5 /CUMM) 450 H Fld Total RBCs Counted (0 /CUMM) 77181 H Fluid Glucose (mg/dL) 106 Fluid Total Protein (g/dL) 2.3 Fluid Albumin (g/dL) 1.2 Fluid LDH (U/L) 161 Fluid Amylase (U/L) < 30 Urines Ur Random Creatinine Cancelled U Random Total Protein Cancelled 06/08 06/08 06/08 0313 0300 0045 Chemistry Sodium (137 - 145 mmol/L) 120 L Cancelled 117 *L Potassium (3.5 - 5.1 mmol/L) 4.1 Chloride (98 - 107 mmol/L) 82 L Carbon Dioxide (22 - 30 mmol/L) 29 Anion Gap (5 - 16) 8 BUN (9 - 20 mg/dL) 27 H Creatinine (0.7 - 1.2 mg/dL) 0.8 Estimated GFR (>60 ml/min) > 60 Glucose (65 - 99 mg/dL) 118 H Calcium (8.4 - 10.2 mg/dL) 8.6 Phosphorus (2.5 - 4.5 mg/dL) 5.0 H Magnesium (1.6 - 2.3 mg/dL) 1.8 Total Bilirubin (0.2 - 1.3 mg/dL) 2.9 H AST (17 - 59 U/L) 87 H ALT (21 - 72 U/L) 56 Albumin (3.5 - 5.0 g/dL) 3.5 Hematology CBC w Diff NO MAN DIFF REQ WBC (4.8 - 10.8 /CUMM) 11.1 H RBC (4.70 - 6.10 /CUMM) 2.01 L Hgb (14.0 - 18.0 G/DL) 7.8 L Hct (42 - 52 %) 23.4 L MCV (80.0 - 94.0 FL) 116.2 H MCH (27.0 - 31.0 PG) 38.8 H RDW (11.5 - 14.5 %) 21.8 H Plt Count (130 - 400 /CUMM) 87 L MPV (7.4 - 10.4 FL) 8.2 Gran % (42.2 - 75.2 %) 72.3 Lymphocytes % (20.5 - 51.1 %) 21.8 Monocytes % (1.7 - 9.3 %) 4.9 Eosinophils % (0 - 5 %) 0.7 Basophils % (0.0 - 2.0 %) 0.3 Absolute Granulocytes (1.4 - 6.5 /CUMM) 8.0 H Absolute Lymphocytes (1.2 - 3.4 /CUMM) 2.4 Absolute Monocytes (0.10 - 0.60 /CUMM) 0.5 Absolute Eosinophils (0.0 - 0.7 /CUMM) 0.1 Absolute Basophils (0.0 - 0.2 /CUMM) 0 PUBS MCHC (33.0 - 37.0 G/DL) 33.3 06/07 1805 1800 1615 Chemistry Sodium (137 - 145 mmol/L) 115 *L 115 *L 115 *L Cancelled 115 *L Potassium (3.5 - 5.1 mmol/L) 4.5 4.6 4.6 4.7 Chloride (98 - 107 mmol/L) 78 L 78 L 78 L 78 L Carbon Dioxide (22 - 30 mmol/L) 27 29 28 27 Anion Gap (5 - 16) 10 8 9 10 BUN (9 - 20 mg/dL) 27 H 26 H 26 H 26 H Creatinine (0.7 - 1.2 mg/dL) 0.8 0.8 0.8 0.8 Estimated GFR (>60 ml/min) > 60 > 60 > 60 > 60 Glucose (65 - 99 mg/dL) 117 H 117 H 117 H 113 H Calcium (8.4 - 10.2 mg/dL) 8.8 8.8 8.9 8.9 Phosphorus (2.5 - 4.5 mg/dL) 5.1 H 5.0 H 4.9 H 4.9 H Magnesium (1.6 - 2.3 mg/dL) 1.8 1.8 1.8 1.7 Total Bilirubin (0.2 - 1.3 mg/dL) 3.0 H 3.1 H 2.9 H 3.0 H AST (17 - 59 U/L) 86 H 85 H 84 H 81 H ALT (21 - 72 U/L) 57 57 57 58 Albumin (3.5 - 5.0 g/dL) 3.6 3.5 3.5 3.5 06/07 06/07 06/07 06/07 1600 1400 1400 1202 Chemistry Sodium (137 - 145 mmol/L) Cancelled Cancelled 112 *L 113 *L Potassium (3.5 - 5.1 mmol/L) 4.6 Chloride (98 - 107 mmol/L) 77 L Carbon Dioxide (22 - 30 mmol/L) 30 Anion Gap (5 - 16) 5 BUN (9 - 20 mg/dL) 26 H Creatinine (0.7 - 1.2 mg/dL) 0.8 Estimated GFR (>60 ml/min) > 60 Glucose (65 - 99 mg/dL) 112 H Calcium (8.4 - 10.2 mg/dL) 9.2 Phosphorus (2.5 - 4.5 mg/dL) 4.9 H Magnesium (1.6 - 2.3 mg/dL) 1.7 Total Bilirubin (0.2 - 1.3 mg/dL) 3.0 H AST (17 - 59 U/L) 77 H ALT (21 - 72 U/L) 48 Albumin (3.5 - 5.0 g/dL) 3.5 06/07 06/07 06/07 06/07 1025 1000 0805 0600 Blood Gas pH (7.35 - 7.45 PH) 7.54 H pCO2 (35 - 45 TORR) 33 L pO2 (80 - 100 TORR) 89 HCO3 (21 - 28 MEQ/L) 27 ABG O2 Sat (Measured) (>96.0 %) 97.0 P-50 (Temp Corrected) N Carboxyhemoglobin (1.5 - 5.0 %) 1.3 L O2 Concentration % .21 O2 Delivery Method RA Chemistry Sodium (137 - 145 mmol/L) 112 *L 111 *L Cancelled Miscellaneous Phlebotomy Draw Site RIGHT RADIAL 06/07 06/07 0535 0401 Chemistry Sodium (137 - 145 mmol/L) 112 *L Potassium (3.5 - 5.1 mmol/L) 4.1 Chloride (98 - 107 mmol/L) 74 L Carbon Dioxide (22 - 30 mmol/L) 26 Anion Gap (5 - 16) 12 BUN (9 - 20 mg/dL) 23 H Creatinine (0.7 - 1.2 mg/dL) 0.6 L Estimated GFR (>60 ml/min) > 60 Glucose (65 - 99 mg/dL) 125 H Calcium (8.4 - 10.2 mg/dL) 9.4 Phosphorus (2.5 - 4.5 mg/dL) 4.7 H Magnesium (1.6 - 2.3 mg/dL) 1.7 Total Bilirubin (0.2 - 1.3 mg/dL) 2.9 H AST (17 - 59 U/L) 82 H ALT (21 - 72 U/L) 51 Troponin I (<0.11 ng/ml) 0.02 Albumin (3.5 - 5.0 g/dL) 3.6 Free T4 (0.79 - 2.35 ng/dL) 1.28 Hematology CBC w Diff NO MAN DIFF REQ WBC (4.8 - 10.8 /CUMM) 13.2 H RBC (4.70 - 6.10 /CUMM) 2.03 L Hgb (14.0 - 18.0 G/DL) 7.7 L Hct (42 - 52 %) 23.7 L MCV (80.0 - 94.0 FL) 116.9 H MCH (27.0 - 31.0 PG) 38.1 H RDW (11.5 - 14.5 %) 21.6 H Plt Count (130 - 400 /CUMM) 87 L MPV (7.4 - 10.4 FL) 8.7 Gran % (42.2 - 75.2 %) 77.0 H Lymphocytes % (20.5 - 51.1 %) 17.9 L Monocytes % (1.7 - 9.3 %) 4.1 Eosinophils % (0 - 5 %) 0.7 Basophils % (0.0 - 2.0 %) 0.3 Absolute Granulocytes (1.4 - 6.5 /CUMM) 10.2 H Absolute Lymphocytes (1.2 - 3.4 /CUMM) 2.4 Absolute Monocytes (0.10 - 0.60 /CUMM) 0.5 Absolute Eosinophils (0.0 - 0.7 /CUMM) 0.1 Absolute Basophils (0.0 - 0.2 /CUMM) 0 PUBS MCHC (33.0 - 37.0 G/DL) 32.6 L Urines Urine Color Cancelled Urine Clarity Cancelled Urine pH Cancelled Ur Specific Oil Trough Cancelled Urine Protein Cancelled Urine Ketones Cancelled Urine Nitrite Cancelled Urine Bilirubin Cancelled Urine Urobilinogen Cancelled Ur Leukocyte Esterase Cancelled Ur Microscopic Cancelled Urine Hemoglobin Cancelled Urine Glucose Cancelled 06/07 06/07 06/07 0342 0342 0239 Chemistry Ammonia (9 - 30 umol/L) < 9 L Miscellaneous Ref Lab Test Result (()) REPORT Toxicology Urine Opiates Screen (>2000 NG/ML) < 100.00 Methadone Screen (>300 NG/ML) 61 Barbiturate Screen (>200 NG/ML) < 60 Ur Phencyclidine Scrn (>25 NG/ML) < 6.00 Amphetamines Screen (>1000 NG/ML) < 100 U Benzodiazepines Scrn (>200 NG/ML) > 800 H Urine Cocaine Screen (>300 NG/ML) < 50 Urine Cannabis Screen (>50 NG/ML) 78.10 H Urines Urinalysis MOD H Urine Color (YEL,AMB,STR) ORANG H Urine Clarity (CLEAR) CLDY H Urine pH (5.0 - 8.0) 5.5 Ur Specific Oil Trough (1.001 - 1.035) 1.025 Urine Protein (NEG,<30 MG/DL) 30 H Urine Ketones (NEG) NEG Urine Nitrite (NEG) POS H Urine Bilirubin (NEG) POS@ICTO H Urine Urobilinogen (0.1 - 1.0 EU/dl) 1.0 Ur Leukocyte Esterase (NEG) NEG Ur Microscopic SEDIMENT EXAMINED Urine RBC (0 - 5 /HPF) 5-10 H Urine WBC (0 - 2 /HPF) 3-5 H Ur Epithelial Cells (NONE,FEW) RARE Urine Bacteria (NEG/NONE) FEW H Urine Mucus (FEW,NONE) MANY H Urine Hemoglobin (NEG) NEG Urine Osmolality (300 - 1000 MOSM/KG) 547 Ur Random Creatinine (mg/dL) 196.9 Ur Random Sodium (30 - 90 mmol/L) < 5 L Ur Random Potassium (mmol/L) 58.3 Fraction Sodium Excret (<1% %) 0.0 Urine Glucose (N MG/DL) NEG 06/07 0107 Chemistry Sodium (137 - 145 mmol/L) 114 *L Potassium (3.5 - 5.1 mmol/L) 3.9 Chloride (98 - 107 mmol/L) 74 L Carbon Dioxide (22 - 30 mmol/L) 27 Anion Gap (5 - 16) 13 BUN (9 - 20 mg/dL) 21 H Creatinine (0.7 - 1.2 mg/dL) 0.7 Estimated GFR (>60 ml/min) > 60 BUN/Creatinine Ratio (7 - 25 %) 30.0 H Glucose (65 - 99 mg/dL) 135 H Serum Osmolality (285 - 295 MOSM/KG) 247 L Calcium (8.4 - 10.2 mg/dL) 9.6 Magnesium (1.6 - 2.3 mg/dL) 1.7 Iron (49 - 181 ug/dL) 115 TIBC (261 - 462 ug/dL) 300 Ferritin (17.9 - 464 ng/mL) 523.0 H Total Bilirubin (0.2 - 1.3 mg/dL) 2.9 H Direct Bilirubin (< 0.4 mg/dL) 1.5 H AST (17 - 59 U/L) 89 H ALT (21 - 72 U/L) 47 Alkaline Phosphatase (< 127 U/L) 182 H Total Protein (6.3 - 8.2 g/dL) 6.5 Albumin (3.5 - 5.0 g/dL) 3.7 Globulin (1.9 - 4.2 gm/dL) 2.8 Albumin/Globulin Ratio (1.1 - 2.2 %) 1.3 Vitamin B12 (239 - 931 pg/mL) 662 Folate (2.76 - 20.0 ng/mL) 1.7 L TSH (0.270 - 4.200 uIU/mL) 3.360 Cortisol AM Sample (4.46 - 22.7 ug/dL) 35.0 H Coagulation PT (9.4 - 12.5 SEC) 27.1 H INR (0.90 - 1.17) 2.61 H APTT (25 - 37 SEC) 40 H Hematology CBC w Diff MAN DIFF ORDERED WBC (4.8 - 10.8 /CUMM) 16.1 H RBC (4.70 - 6.10 /CUMM) 2.15 L Hgb (14.0 - 18.0 G/DL) 8.2 L Hct (42 - 52 %) 24.8 L MCV (80.0 - 94.0 FL) 115.2 H MCH (27.0 - 31.0 PG) 38.1 H RDW (11.5 - 14.5 %) 21.7 H Plt Count (130 - 400 /CUMM) 102 L MPV (7.4 - 10.4 FL) 8.4 Gran % (42.2 - 75.2 %) 81.0 H Lymphocytes % (20.5 - 51.1 %) 17.1 L Monocytes % (1.7 - 9.3 %) 1.0 L Eosinophils % (0 - 5 %) 0.8 Basophils % (0.0 - 2.0 %) 0.1 Absolute Granulocytes (1.4 - 6.5 /CUMM) 13.0 H Segmented Neutrophils (42.2 - 75.2 %) 76 H Band Neutrophils (0.0 - 5.0 %) 1 Absolute Lymphocytes (1.2 - 3.4 /CUMM) 2.8 Lymphocytes (20.5 - 51.1 %) 18 L Monocytes (1.7 - 9.3 %) 4 Absolute Monocytes (0.10 - 0.60 /CUMM) 0.2 Eosinophils (0 - 5.0 %) 1 Absolute Eosinophils (0.0 - 0.7 /CUMM) 0.1 Absolute Basophils (0.0 - 0.2 /CUMM) 0 Nucleated RBCs (0.0 - 0.0 /100WBC) 1 H Platelet Estimate (ADEQUATE) ADEQUATE Polychromasia 1+ Poikilocytosis 1+ Anisocytosis 3+ Macrocytic Cells 3+ Target Cells RARE Ovalocytes 1+ Stomatocytes FEW Elliptocytes FEW PUBS MCHC (33.0 - 37.0 G/DL) 33.1 Other Body Source Fld Total RBCs Counted (%) 100 Serology Hepatitis A IgM Ab (NONREACTIVE) NONREACTIVE Hep Bs Antigen (NONREACTIVE) NONREACTIVE Hep B Core IgM Ab Conf (NONREACTIVE) NONREACTIVE Hepatitis C Antibody (NONREACTIVE) NONREACTIVE Toxicology Salicylates (0 - 20.0 mg/dL) < 1.0 Acetaminophen (10.0 - 30.0 ug/mL) < 10.0 L Serum Alcohol (<10 MG/DL) < 10.0
[2016-06-09 18:48] LABS: ABSOLUTE BASOPHIL COUNT 0 /CUMM (0.0-0.2); ABSOLUTE EOSINOPHIL COUNT 0.2 /CUMM (0.0-0.7); ABSOLUTE GRANULOCYTE CT 8.7 /CUMM (1.4-6.5); ABSOLUTE LYMPH COUNT 2.9 /CUMM (1.2-3.4); ABSOLUTE MONOCYTE COUNT 0.9 /CUMM (0.10-0.60); BASOPHIL % 0.1 % (0.0-2.0); EOSINOPHIL % 1.8 % (0-5); GRANULOCYTE % 68.5 % (42.2-75.2); HEMATOCRIT 24.5 % (42-52); MEAN CORPUSCULAR HGB CONC 32.5 G/DL (33.0-37.0); MEAN CORPUSCULAR VOLUME 117.2 FL (80.0-94.0); MEAN PLATELET VOLUME 7.9 FL (7.4-10.4); PLATELET COUNT 81 /CUMM (130-400); RBC DISTRIBUTION WIDTH 21.8 % (11.5-14.5); RED BLOOD CELL CT 2.09 /CUMM (4.70-6.10); WHITE BLOOD CELL COUNT 12.7 /CUMM (4.8-10.8)
[2016-06-10 06:18] VITALS: BP 130/56
[2016-06-10 07:43] LABS: ABSOLUTE BASOPHIL COUNT 0 /CUMM (0.0-0.2); ABSOLUTE EOSINOPHIL COUNT 0.2 /CUMM (0.0-0.7); ABSOLUTE LYMPH COUNT 3.3 /CUMM (1.2-3.4); ABSOLUTE MONOCYTE COUNT 1.2 /CUMM (0.10-0.60); BASOPHIL % 0.3 % (0.0-2.0); EOSINOPHIL % 1.7 % (0-5); GRANULOCYTE % 65.3 % (42.2-75.2); HEMATOCRIT 23.9 % (42-52); MEAN CORPUSCULAR HGB 38.8 PG (27.0-31.0); MEAN CORPUSCULAR HGB CONC 32.7 G/DL (33.0-37.0); MEAN CORPUSCULAR VOLUME 118.5 FL (80.0-94.0); MEAN PLATELET VOLUME 7.6 FL (7.4-10.4); RBC DISTRIBUTION WIDTH 20.7 % (11.5-14.5); RED BLOOD CELL CT 2.02 /CUMM (4.70-6.10); WHITE BLOOD CELL COUNT 13.8 /CUMM (4.8-10.8)
[2016-06-10 08:38] LABS: PLATELET COUNT 77 /CUMM (130-400)
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
[2016-06-10 15:16] VITALS: BP 136/78
--- NOTE | 2016-06-10 16:06 | PN- Gastroenterology ---
Assessment/Plan Assessment/Recommendations: Joyce is a 31 year old male with a history of etoh abuse who was admitted with anasarca, increased LFTs, and profound hyponatremia. He has a long standing history of etoh abuse over the past 10 years and likely has some fibrosis from this, but as his liver did not appear cirrhotic on the ct scan I am hopeful that if he able to completely abstain from etoh his liver function may return to normal. That being said, if he continues to drink he likely will ultimately develop fulminant hepatic failure. He currently seems motivated to get sober, but obviously time will tell. He does have a markedly elevated discriminant function which would qualify for steroids, but as using steroids in alcoholic hepatitis is now somewhat controversial based on some newer studies would continue to observe him off of them for now. Uneverntful 24 hours. Alert orientated and conversant. Taking good by mouth. No asterixis abdomen soft nontender normal bowel sounds Recommendations: 1. Advance to a low sodium diet as tolerated. 2. Monitor for signs of etoh withdrawal and treat with benzodiazepenes as needed 3. Continue to observe off of steroids 4. Follow daily LFTs and INR for now (last INR was 06/07) 5. Social serice consult for etoh abuse 6. Low cell count in paracentesis fluid from yesterday. 7. Consideration will be given for an outpatient EGD to assess for varices and consideration will also be given for a liver transplant evaluation if his MELD remains over 15 (currently 18) after a six month period of sobriety. 8. Will also plan to repeat an US in 6 months for HCC screening and also to ensure stability of the gallbladder wall polyp. Subjective Subjective: a Objective Vital Signs and I&Os Vital Signs Date Time Temp Pulse Resp B/P Pulse O2 O2 Flow FiO2 Ox Delivery Rate 06/10 1516 99.2 78 20 136/78 95 06/10 0618 98.5 79 20 130/56 96 Nasal 1.0L Cannula 06/10 0000 Nasal 1.0L Cannula 06/09 2242 98.3 78 20 126/60 95 Nasal 1.0L Cannula Intake & Output 06/10 1600 06/10 0400 06/09 1600 06/09 0400 06/08 1600 06/08 0400 Intake Total 430 50 580 200 588 280 Output Total 1700 2400 3100 600 2100 165 Balance -1270 -2350 -2520 -400 -1512 115 Intake, IV 100 0 0 318 280 Intake, Oral 330 50 580 200 270 Number 0 0 0 0 Bowel Movements Output, Urine 1700 2400 3100 600 2100 165 Patient 232 lb Weight Results Pertinent Lab Results: Laboratory Tests 06/10 06/10 06/09 1320 0650 2250 Chemistry Sodium (137 - 145 mmol/L) 129 L 127 L 128 L Potassium (3.5 - 5.1 mmol/L) 3.6 3.8 3.8 Chloride (98 - 107 mmol/L) 86 L 87 L 85 L Carbon Dioxide (22 - 30 mmol/L) 36 H 35 H 34 H Anion Gap (5 - 16) 7 6 9 BUN (9 - 20 mg/dL) 14 16 19 Creatinine (0.7 - 1.2 mg/dL) 0.6 L 0.6 L 0.7 Estimated GFR (>60 ml/min) > 60 > 60 > 60 BUN/Creatinine Ratio (7 - 25 %) 23.3 26.7 H 27.1 H Magnesium (1.6 - 2.3 mg/dL) 1.9 Total Bilirubin (0.2 - 1.3 mg/dL) 2.7 H Direct Bilirubin (< 0.4 mg/dL) 1.5 H AST (17 - 59 U/L) 117 H ALT (21 - 72 U/L) 70 Alkaline Phosphatase (< 127 U/L) 253 H Total Protein (6.3 - 8.2 g/dL) 6.4 Albumin (3.5 - 5.0 g/dL) 3.5 Hematology CBC w Diff NO MAN DIFF REQ WBC (4.8 - 10.8 /CUMM) 13.8 H RBC (4.70 - 6.10 /CUMM) 2.02 L Hgb (14.0 - 18.0 G/DL) 7.8 L Hct (42 - 52 %) 23.9 L MCV (80.0 - 94.0 FL) 118.5 H MCH (27.0 - 31.0 PG) 38.8 H RDW (11.5 - 14.5 %) 20.7 H Plt Count (130 - 400 /CUMM) 77 L MPV (7.4 - 10.4 FL) 7.6 Gran % (42.2 - 75.2 %) 65.3 Lymphocytes % (20.5 - 51.1 %) 24.1 Monocytes % (1.7 - 9.3 %) 8.6 Eosinophils % (0 - 5 %) 1.7 Basophils % (0.0 - 2.0 %) 0.3 Absolute Granulocytes (1.4 - 6.5 /CUMM) 9.0 H Absolute Lymphocytes (1.2 - 3.4 /CUMM) 3.3 Absolute Monocytes (0.10 - 0.60 /CUMM) 1.2 H Absolute Eosinophils (0.0 - 0.7 /CUMM) 0.2 Absolute Basophils (0.0 - 0.2 /CUMM) 0 PUBS MCHC (33.0 - 37.0 G/DL) 32.7 L 06/09 06/09 06/09 1810 1200 0855 Chemistry Sodium (137 - 145 mmol/L) 127 L Cancelled 127 L Potassium (3.5 - 5.1 mmol/L) 3.6 Cancelled 3.1 L Chloride (98 - 107 mmol/L) 85 L Cancelled 84 L Carbon Dioxide (22 - 30 mmol/L) 34 H Cancelled 34 H Anion Gap (5 - 16) 8 Cancelled 10 BUN (9 - 20 mg/dL) 21 H Cancelled 24 H Creatinine (0.7 - 1.2 mg/dL) 0.7 Cancelled 0.7 Estimated GFR (>60 ml/min) > 60 > 60 Glucose (65 - 99 mg/dL) 86 Cancelled 82 Calcium (8.4 - 10.2 mg/dL) 8.4 Cancelled 8.3 L Phosphorus (2.5 - 4.5 mg/dL) 3.3 Cancelled 3.5 Magnesium (1.6 - 2.3 mg/dL) 1.8 Cancelled 1.7 Total Bilirubin (0.2 - 1.3 mg/dL) 3.0 H Cancelled 3.0 H AST (17 - 59 U/L) 134 H Cancelled 146 H ALT (21 - 72 U/L) 75 H Cancelled 72 Albumin (3.5 - 5.0 g/dL) 3.6 Cancelled 3.5 Hematology CBC w Diff NO MAN DIFF REQ WBC (4.8 - 10.8 /CUMM) 12.7 H RBC (4.70 - 6.10 /CUMM) 2.09 L Hgb (14.0 - 18.0 G/DL) 7.9 L Hct (42 - 52 %) 24.5 L MCV (80.0 - 94.0 FL) 117.2 H MCH (27.0 - 31.0 PG) 38.0 H RDW (11.5 - 14.5 %) 21.8 H Plt Count (130 - 400 /CUMM) 81 L MPV (7.4 - 10.4 FL) 7.9 Gran % (42.2 - 75.2 %) 68.5 Lymphocytes % (20.5 - 51.1 %) 22.8 Monocytes % (1.7 - 9.3 %) 6.8 Eosinophils % (0 - 5 %) 1.8 Basophils % (0.0 - 2.0 %) 0.1 Absolute Granulocytes (1.4 - 6.5 /CUMM) 8.7 H Absolute Lymphocytes (1.2 - 3.4 /CUMM) 2.9 Absolute Monocytes (0.10 - 0.60 /CUMM) 0.9 H Absolute Eosinophils (0.0 - 0.7 /CUMM) 0.2 Absolute Basophils (0.0 - 0.2 /CUMM) 0 PUBS MCHC (33.0 - 37.0 G/DL) 32.5 L 06/09 06/08 06/08 0430 2255 1920 Chemistry Sodium (137 - 145 mmol/L) 126 L 122 L 122 L Potassium (3.5 - 5.1 mmol/L) 3.4 L 3.4 L 3.6 Chloride (98 - 107 mmol/L) 85 L 82 L 82 L Carbon Dioxide (22 - 30 mmol/L) 32 H 31 H 31 H Anion Gap (5 - 16) 10 9 9 BUN (9 - 20 mg/dL) 27 H 27 H 28 H Creatinine (0.7 - 1.2 mg/dL) 0.7 0.8 0.8 Estimated GFR (>60 ml/min) > 60 > 60 > 60 Glucose (65 - 99 mg/dL) 77 89 93 Calcium (8.4 - 10.2 mg/dL) 8.4 8.4 8.4 Phosphorus (2.5 - 4.5 mg/dL) 3.9 4.2 4.6 H Magnesium (1.6 - 2.3 mg/dL) 1.8 1.9 1.9 Total Bilirubin (0.2 - 1.3 mg/dL) 2.8 H 2.6 H 2.7 H AST (17 - 59 U/L) 127 H 96 H 95 H ALT (21 - 72 U/L) 66 61 59 Albumin (3.5 - 5.0 g/dL) 3.5 3.6 3.6 Hematology CBC w Diff NO MAN DIFF REQ WBC (4.8 - 10.8 /CUMM) 12.1 H RBC (4.70 - 6.10 /CUMM) 2.03 L Hgb (14.0 - 18.0 G/DL) 7.9 L Hct (42 - 52 %) 23.9 L MCV (80.0 - 94.0 FL) 117.5 H MCH (27.0 - 31.0 PG) 38.8 H RDW (11.5 - 14.5 %) 21.5 H Plt Count (130 - 400 /CUMM) 85 L MPV (7.4 - 10.4 FL) 8.1 Gran % (42.2 - 75.2 %) 64.9 Lymphocytes % (20.5 - 51.1 %) 27.5 Monocytes % (1.7 - 9.3 %) 6.1 Eosinophils % (0 - 5 %) 1.2 Basophils % (0.0 - 2.0 %) 0.3 Absolute Granulocytes (1.4 - 6.5 /CUMM) 7.9 H Absolute Lymphocytes (1.2 - 3.4 /CUMM) 3.3 Absolute Monocytes (0.10 - 0.60 /CUMM) 0.7 H Absolute Eosinophils (0.0 - 0.7 /CUMM) 0.1 Absolute Basophils (0.0 - 0.2 /CUMM) 0 PUBS MCHC (33.0 - 37.0 G/DL) 33.0 06/08 06/08 06/08 06/08 06/08 1535 1434 1434 1118 0700 Chemistry Sodium (137 - 145 mmol/L) 121 L 121 L 121 L Potassium (3.5 - 5.1 mmol/L) 3.6 3.8 3.8 Chloride (98 - 107 mmol/L) 83 L 83 L 81 L Carbon Dioxide (22 - 30 mmol/L) 29 28 29 Anion Gap (5 - 16) 10 11 11 BUN (9 - 20 mg/dL) 29 H 28 H 27 H Creatinine (0.7 - 1.2 mg/dL) 0.7 0.7 0.8 Estimated GFR (>60 ml/min) > 60 > 60 > 60 BUN/Creatinine Ratio (7 - 25 %) 33.8 H Glucose (65 - 99 mg/dL) 98 103 H Calcium (8.4 - 10.2 mg/dL) 8.5 8.5 Phosphorus (2.5 - 4.5 mg/dL) 4.6 H 4.4 Magnesium (1.6 - 2.3 mg/dL) 1.8 1.8 Total Bilirubin (0.2 - 1.3 mg/dL) 2.8 H 2.8 H AST (17 - 59 U/L) 99 H 95 H ALT (21 - 72 U/L) 63 57 Albumin (3.5 - 5.0 g/dL) 3.5 3.5 Hematology Lymphocytes (%) 50 % Normal PMNs (%) 15 Misc Hematology Test (%) Other Body Source Fluid WBC (0 - 5 /CUMM) 450 H Fld Total RBCs Counted (0 /CUMM) 44099 H Fluid Glucose (mg/dL) 106 Fluid Total Protein (g/dL) 2.3 Fluid Albumin (g/dL) 1.2 Fluid LDH (U/L) 161 Fluid Amylase (U/L) < 30 Urines Ur Random Creatinine Cancelled U Random Total Protein Cancelled 06/08 06/08 06/08 0313 0300 0045 Chemistry Sodium (137 - 145 mmol/L) 120 L Cancelled 117 *L Potassium (3.5 - 5.1 mmol/L) 4.1 Chloride (98 - 107 mmol/L) 82 L Carbon Dioxide (22 - 30 mmol/L) 29 Anion Gap (5 - 16) 8 BUN (9 - 20 mg/dL) 27 H Creatinine (0.7 - 1.2 mg/dL) 0.8 Estimated GFR (>60 ml/min) > 60 Glucose (65 - 99 mg/dL) 118 H Calcium (8.4 - 10.2 mg/dL) 8.6 Phosphorus (2.5 - 4.5 mg/dL) 5.0 H Magnesium (1.6 - 2.3 mg/dL) 1.8 Total Bilirubin (0.2 - 1.3 mg/dL) 2.9 H AST (17 - 59 U/L) 87 H ALT (21 - 72 U/L) 56 Albumin (3.5 - 5.0 g/dL) 3.5 Hematology CBC w Diff NO MAN DIFF REQ WBC (4.8 - 10.8 /CUMM) 11.1 H RBC (4.70 - 6.10 /CUMM) 2.01 L Hgb (14.0 - 18.0 G/DL) 7.8 L Hct (42 - 52 %) 23.4 L MCV (80.0 - 94.0 FL) 116.2 H MCH (27.0 - 31.0 PG) 38.8 H RDW (11.5 - 14.5 %) 21.8 H Plt Count (130 - 400 /CUMM) 87 L MPV (7.4 - 10.4 FL) 8.2 Gran % (42.2 - 75.2 %) 72.3 Lymphocytes % (20.5 - 51.1 %) 21.8 Monocytes % (1.7 - 9.3 %) 4.9 Eosinophils % (0 - 5 %) 0.7 Basophils % (0.0 - 2.0 %) 0.3 Absolute Granulocytes (1.4 - 6.5 /CUMM) 8.0 H Absolute Lymphocytes (1.2 - 3.4 /CUMM) 2.4 Absolute Monocytes (0.10 - 0.60 /CUMM) 0.5 Absolute Eosinophils (0.0 - 0.7 /CUMM) 0.1 Absolute Basophils (0.0 - 0.2 /CUMM) 0 PUBS MCHC (33.0 - 37.0 G/DL) 33.3 06/07 06/07 06/07 06/07 06/07 2150 2009 1805 1800 1615 Chemistry Sodium (137 - 145 mmol/L) 115 *L 115 *L 115 *L Cancelled 115 *L Potassium (3.5 - 5.1 mmol/L) 4.5 4.6 4.6 4.7 Chloride (98 - 107 mmol/L) 78 L 78 L 78 L 78 L Carbon Dioxide (22 - 30 mmol/L) 27 29 28 27 Anion Gap (5 - 16) 10 8 9 10 BUN (9 - 20 mg/dL) 27 H 26 H 26 H 26 H Creatinine (0.7 - 1.2 mg/dL) 0.8 0.8 0.8 0.8 Estimated GFR (>60 ml/min) > 60 > 60 > 60 > 60 Glucose (65 - 99 mg/dL) 117 H 117 H 117 H 113 H Calcium (8.4 - 10.2 mg/dL) 8.8 8.8 8.9 8.9 Phosphorus (2.5 - 4.5 mg/dL) 5.1 H 5.0 H 4.9 H 4.9 H Magnesium (1.6 - 2.3 mg/dL) 1.8 1.8 1.8 1.7 Total Bilirubin (0.2 - 1.3 mg/dL) 3.0 H 3.1 H 2.9 H 3.0 H AST (17 - 59 U/L) 86 H 85 H 84 H 81 H ALT (21 - 72 U/L) 57 57 57 58 Albumin (3.5 - 5.0 g/dL) 3.6 3.5 3.5 3.5
[2016-06-10 18:10] VITALS: BP 138/62
[2016-06-10 23:34] VITALS: BP 128/68
[2016-06-11 02:18] VITALS: BP 142/80
[2016-06-11 06:00] VITALS: BP 144/78
--- NOTE | 2016-06-11 07:40 | PN- Housestaff ---
HALLE JEREZ,INDIA 06/11/16 0739: Subjective Follow-up For: Bilateral lower extremity swelling Hyponatremia Subjective: Patient seen and examined. He is seen sitting upright in bed enjoying his breakfast. He appears to be in no acute distress. He admits that his hands and feet have persistent mild achy pain but otherwise denies any new subjective complaints. He states that he worked briefly with physical therapy yesterday and was able to sit upright in the chair for hours, he is willing to participate in physical therapy again today. He reports that his lower extremities look much improved since admission. Additionally he denies any blurred/double vision, lightheadedness/dizziness, headache, fever, chills, chest pain, palpitations, shortness of breath, cough, nausea, vomiting, diarrhea, new lower extremity swelling. No overnight events reported. Review of Systems Constitutional: Reports: see HPI. Objective Last 24 Hrs of Vital Signs/I&O Vital Signs Date Time Temp Pulse Resp B/P Pulse O2 O2 Flow FiO2 Ox Delivery Rate 06/11 0600 98.2 76 18 144/78 95 Nasal Cannula 06/11 0218 98.3 80 18 142/80 95 Nasal Cannula 06/11 0000 Nasal 1.0L Cannula 06/10 2334 98.0 74 18 128/68 98 Nasal 1.0L Cannula 06/10 1810 98.6 77 20 138/62 94 Nasal 1.0L Cannula 06/10 1600 94 Nasal 1.0L Cannula 06/10 1516 99.2 78 20 136/78 95 Intake & Output 06/11 1600 06/11 0800 06/11 0000 Intake Total 220 60 Output Total 400 300 Balance -180 -240 Intake, Oral 220 60 Output, Urine 400 300 Physical Exam General Appearance: Alert, Oriented X3, Cooperative, No Acute Distress Other Physical Findings: General - well developed, well nourished young man in no acute distress HEENT - NCAT, PERRL, EOMI, anicteric sclera Cardio - S1, S2 w/o murmurs/gallops/rubs Resp - CTA bilaterally w/o wheezing/rhochi/crackles GI - soft, nontender, nondistended, bowel sounds present Neuro- Awake and alert, CN II - XII grossly intact Extremities-normal pulses, no cyanosis/clubbing/edema Current Medications: Current Medications Sig/Sonja Start time Last Medication Dose Route Stop Time Status Admin Acetaminophen 500 MG Q6P PRN 06/10 1100 DC 06/11 PO 0547 Benzocaine/Menthol 1 YUNIEL Q2P PRN 06/09 0045 AC 06/09 PO 0556 Folic Acid 1 MG DAILY 06/08 1000 AC 06/11 PO 0908 Furosemide 40 MG DAILY 06/10 1000 AC 06/11 IV 0909 Hydrocortisone 1 LAURENT BID PRN 06/09 1830 AC EXT Lorazepam 0.5 MG ONCE 06/12 0000 DC PO 06/12 0001 Lorazepam 0.5 MG Q6H 06/11 0000 DC PO 06/11 1801 Lorazepam 1 MG Q2P PRN 06/07 1830 AC 06/10 IV 2240 Lorazepam 2 MG Q2P PRN 06/07 1800 AC IV Multivitamins 1 TAB DAILY 06/08 1000 AC 06/11 PO 0908 Nystatin 1 LAURENT TID PRN 06/07 0915 AC 06/09 TOP 1142 Pantoprazole Sodium 40 MG DAILY 06/07 1000 AC 06/11 IV 0909 Polyethylene Glycol 17 GM DAILY 06/11 1012 AC PO Senna/Docusate Sodium 2 TAB AT BEDTIME 06/11 2200 AC PO Spironolactone 100 MG DAILY 06/10 1000 AC 06/11 PO 0908 Tramadol HCl 25 MG Q6-PRN PRN 06/11 1100 AC 06/11 PO 1108 Last 24 Hrs of Lab/Cb Results Last 24 Hrs of Labs/Mics: Laboratory Tests 06/11/16 1235: Urine Osmolality Pending, Ur Random Creatinine Pending, Ur Random Sodium Pending , Ur Random Potassium Pending, Fraction Sodium Excret Pending 06/11/16 1120: Serum Osmolality 272 L 06/11/16 0630: Anion Gap 5, Estimated GFR > 60, BUN/Creatinine Ratio 24.0, Total Bilirubin 2.6 H, Direct Bilirubin 1.4 H, AST 100 H, ALT 73 H, Alkaline Phosphatase 278 H, Total Protein 6.3, Albumin 3.6, PT 15.7 H, INR 1.50 H, CBC w Diff NO MAN DIFF REQ, RBC 1.98 L, MCV 118.1 H, MCH 39.0 H, RDW 21.0 H, MPV 7.3 L, Gran % 64.1, Lymphocytes % 24.5, Monocytes % 9.4 H, Eosinophils % 1.6, Basophils % 0.4 , Absolute Granulocytes 8.3 H, Absolute Lymphocytes 3.2, Absolute Monocytes 1.2 H, Absolute Eosinophils 0.2, Absolute Basophils 0, PUBS MCHC 33.0 Assessment/Plan Assessment: Patient hyponatremia is maintaining in the upper 120's despite aggressive fluid restriction and intravenous diuretics. Serum chemistries are to be monitored. PT evaluation determined that patient requires an assist of 2 and would benefit from short term rehabilitation. Serum osmolality is persistently low in the context of hypervolemic hyponatremia secondary to alcoholic liver disease. Patient is to continued to be monitored for signs and symptoms of hyponatremia. Liver function tests remain elevated; these will continue to be monitored. Hyponatremia/bilateral lower extremity swelling Sodium was found to be 112 upon initial evaluation for which patient was admitted to the intensive care unit. He was started on hypertonic saline and closely monitored for sodium correction being sure not to over correct rated an 8 mEq in 24 hour period. Nephrology consult was placed whom recommended continuing intravenous Lasix and fluid restriction with close monitoring of patient's serum chemistries. Patient was transferred to the general medicine floor after stabilization and moderate improvement of serum sodium. -General medicine -Fluid restriction: 600 mL per day from all sources -Avoid overcorrecting sodium, Maximum sodium correction: 8mEq in 24 hours -Lasix 40 mg IV daily -Aldactone 100 mg by mouth daily -Nephrology consult -PT evaluation: Assist 2, STR History of EtOH abuse/dependence/ascites -CIWA protocol -Ativan when necessary per CIWA -Protontix 40mg IV Daily -GI consult -Daily LFTs/INR per GI Pain plan-acetaminophen Diet-regular diet DVT prophylaxis-mechanical CODE STATUS-full code Problem List: 1. Alcoholic hepatitis with ascites Pain Ratin Pain Location: Hands, legs, feet Pain Goal: Pain 4 or less Pain Plan: Tramadol 50mg Q6H PRN - PAIN Tomorrow's Labs & Rationales: CBC - leukocytosis / anemia BEP - hyponatremia LFTs - transaminitis INR - liver disease KENNEDI NOEL 06/11/16 3245: Attending MD Review Statement Attending Statement Attending MD Statement: examined this patient, discuss w/resident/PA/SHEET WRITER, agreed w/resident/PA/SHEET WRITER, discussed with family, reviewed EMR data (avail), discussed with nursing, discussed with case mgmt Attending Assessment/Plan: Patient seen and examined at bedside. Discussed with the patient's mother at bedside in detail the care plan and answered all her questions. Given the persistent hyponatremia that has improved but is still on the lower side at 127 today we will repeat the serum osmolality as well as urine osmolality to see if there is improvement in those numbers. See osmolality has improved to 272 and urine osmolality has become lower . We will continue with diuretics. He is currently on Lasix 40 mg IV and Aldactone 100 mg by mouth daily. Discussed with patient's mother at bedside the alcohol rehabilitation and its importance. We will trend his LFTs.
[2016-06-11 07:59] LABS: ABSOLUTE BASOPHIL COUNT 0 /CUMM (0.0-0.2); ABSOLUTE EOSINOPHIL COUNT 0.2 /CUMM (0.0-0.7); ABSOLUTE GRANULOCYTE CT 8.3 /CUMM (1.4-6.5); ABSOLUTE LYMPH COUNT 3.2 /CUMM (1.2-3.4); ABSOLUTE MONOCYTE COUNT 1.2 /CUMM (0.10-0.60); BASOPHIL % 0.4 % (0.0-2.0); EOSINOPHIL % 1.6 % (0-5); GRANULOCYTE % 64.1 % (42.2-75.2); HEMATOCRIT 23.4 % (42-52); MEAN CORPUSCULAR VOLUME 118.1 FL (80.0-94.0); MEAN PLATELET VOLUME 7.3 FL (7.4-10.4); PLATELET COUNT 71 /CUMM (130-400); RED BLOOD CELL CT 1.98 /CUMM (4.70-6.10); WHITE BLOOD CELL COUNT 12.9 /CUMM (4.8-10.8)
[2016-06-11 08:21] LABS: PT 15.7 SEC (9.4-12.5)
--- NOTE | 2016-06-11 12:30 | PN- Nephrology ---
Assessment/Plan Assessment: Hyponatremia: This is a hypervolemic hyponatremia in the setting of a high ADH state from ETOH related liver disease. He needs to continue on a fluid restriction. I agree with also continuing the diuretics given a total body volume overload, and these may help with free water excretion as his urine osmolality was quite high off diuretics, close to 600. Would recommend a repeat swallow evaluation as increasing solute intake may also help with the hyponatremia. Suggestion: Continue diuretic regimen Continue fluid restriction Would recommend repeat swallow evaluation Subjective Subjective: No acute events Mental status improved compared to last week per his mom Sodium level 127 from 129 On 2 diuretics and fluid restriction Poor by mouth solute intake, is on pured diet and he's not eating well according to his mom Review of Systems: +edema Complains of increased thirst Objective Vital Signs and I&Os Vital Signs Date Time Temp Pulse Resp B/P Pulse O2 O2 Flow FiO2 Ox Delivery Rate 06/11 0600 98.2 76 18 144/78 95 Nasal Cannula 06/11 0218 98.3 80 18 142/80 95 Nasal Cannula 06/11 0000 Nasal 1.0L Cannula 06/10 2334 98.0 74 18 128/68 98 Nasal 1.0L Cannula 06/10 1810 98.6 77 20 138/62 94 Nasal 1.0L Cannula 06/10 1600 94 Nasal 1.0L Cannula 06/10 1516 99.2 78 20 136/78 95 Intake & Output 06/11 1600 06/11 0400 06/10 1600 06/10 0400 06/09 1600 06/09 0400 Intake Total 100 180 430 50 580 200 Output Total 427 344 1734 2400 3100 600 Balance -300 -120 -1270 -2350 -2520 -400 Intake, IV 100 0 0 Intake, Oral 100 180 330 50 580 200 Number 0 0 0 Bowel Movements Output, Urine 020 351 8137 2400 3100 600 Physical Exam: General: NAD, A+O x3. HEENT: NC/AT. No icterus. Moist mucosa Neck: negative for AMINA, JVD CV: RRR, no m/r/g Pulm: CTAB, no rales Abd: soft, mild distension Lower Ext: 2+ edema Upper Ext: no AVFs or AVGs Neuro: neg tremor, asterixis : no jack catheter Current Medications: Current Medications Sig/Sonja Start time Last Medication Dose Route Stop Time Status Admin Acetaminophen 500 MG Q6P PRN 06/10 1100 DC 06/11 PO 0547 Benzocaine/Menthol 1 YUNIEL Q2P PRN 06/09 0045 AC 06/09 PO 0556 Folic Acid 1 MG DAILY 06/08 1000 AC 06/11 PO 0908 Furosemide 40 MG DAILY 06/10 1000 AC 06/11 IV 0909 Hydrocortisone 1 LAURENT BID PRN 06/09 1830 AC EXT Lorazepam 0.5 MG ONCE 06/12 0000 DC PO 06/12 0001 Lorazepam 0.5 MG Q6H 06/11 0000 DC PO 06/11 1801 Lorazepam 1 MG Q2P PRN 06/07 1830 AC 06/10 IV 2240 Lorazepam 2 MG Q2P PRN 06/07 1800 AC IV Multivitamins 1 TAB DAILY 06/08 1000 AC 06/11 PO 0908 Nystatin 1 LAURENT TID PRN 06/07 0915 AC 06/09 TOP 1142 Pantoprazole Sodium 40 MG DAILY 06/07 1000 AC 06/11 IV 0909 Polyethylene Glycol 17 GM DAILY 06/11 1012 AC PO Senna/Docusate Sodium 2 TAB AT BEDTIME 06/11 2200 AC PO Spironolactone 100 MG DAILY 06/10 1000 AC 06/11 PO 0908 Tramadol HCl 25 MG Q6-PRN PRN 06/11 1100 AC 06/11 PO 1108 Results Pertinent Lab Results: Laboratory Tests 06/11 06/11 06/10 1120 0630 1320 Chemistry Sodium (137 - 145 mmol/L) 127 L 129 L Potassium (3.5 - 5.1 mmol/L) 3.7 3.6 Chloride (98 - 107 mmol/L) 86 L 86 L Carbon Dioxide (22 - 30 mmol/L) 35 H 36 H Anion Gap (5 - 16) 5 7 BUN (9 - 20 mg/dL) 12 14 Creatinine (0.7 - 1.2 mg/dL) 0.5 L 0.6 L Estimated GFR (>60 ml/min) > 60 > 60 BUN/Creatinine Ratio (7 - 25 %) 24.0 23.3 Serum Osmolality Pending Total Bilirubin (0.2 - 1.3 mg/dL) 2.6 H Direct Bilirubin (< 0.4 mg/dL) 1.4 H AST (17 - 59 U/L) 100 H ALT (21 - 72 U/L) 73 H Alkaline Phosphatase (< 127 U/L) 278 H Total Protein (6.3 - 8.2 g/dL) 6.3 Albumin (3.5 - 5.0 g/dL) 3.6 Coagulation PT (9.4 - 12.5 SEC) 15.7 H INR (0.90 - 1.17) 1.50 H Hematology CBC w Diff NO MAN DIFF REQ WBC (4.8 - 10.8 /CUMM) 12.9 H RBC (4.70 - 6.10 /CUMM) 1.98 L Hgb (14.0 - 18.0 G/DL) 7.7 L Hct (42 - 52 %) 23.4 L MCV (80.0 - 94.0 FL) 118.1 H MCH (27.0 - 31.0 PG) 39.0 H RDW (11.5 - 14.5 %) 21.0 H Plt Count (130 - 400 /CUMM) 71 L MPV (7.4 - 10.4 FL) 7.3 L Gran % (42.2 - 75.2 %) 64.1 Lymphocytes % (20.5 - 51.1 %) 24.5 Monocytes % (1.7 - 9.3 %) 9.4 H Eosinophils % (0 - 5 %) 1.6 Basophils % (0.0 - 2.0 %) 0.4 Absolute Granulocytes (1.4 - 6.5 /CUMM) 8.3 H Absolute Lymphocytes (1.2 - 3.4 /CUMM) 3.2 Absolute Monocytes (0.10 - 0.60 /CUMM) 1.2 H Absolute Eosinophils (0.0 - 0.7 /CUMM) 0.2 Absolute Basophils (0.0 - 0.2 /CUMM) 0 PUBS MCHC (33.0 - 37.0 G/DL) 33.0 03/26 03/ 0650 2250 Chemistry Sodium (137 - 145 mmol/L) 127 L 128 L Potassium (3.5 - 5.1 mmol/L) 3.8 3.8 Chloride (98 - 107 mmol/L) 87 L 85 L Carbon Dioxide (22 - 30 mmol/L) 35 H 34 H Anion Gap (5 - 16) 6 9 BUN (9 - 20 mg/dL) 16 19 Creatinine (0.7 - 1.2 mg/dL) 0.6 L 0.7 Estimated GFR (>60 ml/min) > 60 > 60 BUN/Creatinine Ratio (7 - 25 %) 26.7 H 27.1 H Magnesium (1.6 - 2.3 mg/dL) 1.9 Total Bilirubin (0.2 - 1.3 mg/dL) 2.7 H Direct Bilirubin (< 0.4 mg/dL) 1.5 H AST (17 - 59 U/L) 117 H ALT (21 - 72 U/L) 70 Alkaline Phosphatase (< 127 U/L) 253 H Total Protein (6.3 - 8.2 g/dL) 6.4 Albumin (3.5 - 5.0 g/dL) 3.5 Hematology CBC w Diff NO MAN DIFF REQ WBC (4.8 - 10.8 /CUMM) 13.8 H RBC (4.70 - 6.10 /CUMM) 2.02 L Hgb (14.0 - 18.0 G/DL) 7.8 L Hct (42 - 52 %) 23.9 L MCV (80.0 - 94.0 FL) 118.5 H MCH (27.0 - 31.0 PG) 38.8 H RDW (11.5 - 14.5 %) 20.7 H Plt Count (130 - 400 /CUMM) 77 L MPV (7.4 - 10.4 FL) 7.6 Gran % (42.2 - 75.2 %) 65.3 Lymphocytes % (20.5 - 51.1 %) 24.1 Monocytes % (1.7 - 9.3 %) 8.6 Eosinophils % (0 - 5 %) 1.7 Basophils % (0.0 - 2.0 %) 0.3 Absolute Granulocytes (1.4 - 6.5 /CUMM) 9.0 H Absolute Lymphocytes (1.2 - 3.4 /CUMM) 3.3 Absolute Monocytes (0.10 - 0.60 /CUMM) 1.2 H Absolute Eosinophils (0.0 - 0.7 /CUMM) 0.2 Absolute Basophils (0.0 - 0.2 /CUMM) 0 PUBS MCHC (33.0 - 37.0 G/DL) 32.7 L 06/09 06/09 06/09 1810 1200 0855 Chemistry Sodium (137 - 145 mmol/L) 127 L Cancelled 127 L Potassium (3.5 - 5.1 mmol/L) 3.6 Cancelled 3.1 L Chloride (98 - 107 mmol/L) 85 L Cancelled 84 L Carbon Dioxide (22 - 30 mmol/L) 34 H Cancelled 34 H Anion Gap (5 - 16) 8 Cancelled 10 BUN (9 - 20 mg/dL) 21 H Cancelled 24 H Creatinine (0.7 - 1.2 mg/dL) 0.7 Cancelled 0.7 Estimated GFR (>60 ml/min) > 60 > 60 Glucose (65 - 99 mg/dL) 86 Cancelled 82 Calcium (8.4 - 10.2 mg/dL) 8.4 Cancelled 8.3 L Phosphorus (2.5 - 4.5 mg/dL) 3.3 Cancelled 3.5 Magnesium (1.6 - 2.3 mg/dL) 1.8 Cancelled 1.7 Total Bilirubin (0.2 - 1.3 mg/dL) 3.0 H Cancelled 3.0 H AST (17 - 59 U/L) 134 H Cancelled 146 H ALT (21 - 72 U/L) 75 H Cancelled 72 Albumin (3.5 - 5.0 g/dL) 3.6 Cancelled 3.5 Hematology CBC w Diff NO MAN DIFF REQ WBC (4.8 - 10.8 /CUMM) 12.7 H RBC (4.70 - 6.10 /CUMM) 2.09 L Hgb (14.0 - 18.0 G/DL) 7.9 L Hct (42 - 52 %) 24.5 L MCV (80.0 - 94.0 FL) 117.2 H MCH (27.0 - 31.0 PG) 38.0 H RDW (11.5 - 14.5 %) 21.8 H Plt Count (130 - 400 /CUMM) 81 L MPV (7.4 - 10.4 FL) 7.9 Gran % (42.2 - 75.2 %) 68.5 Lymphocytes % (20.5 - 51.1 %) 22.8 Monocytes % (1.7 - 9.3 %) 6.8 Eosinophils % (0 - 5 %) 1.8 Basophils % (0.0 - 2.0 %) 0.1 Absolute Granulocytes (1.4 - 6.5 /CUMM) 8.7 H Absolute Lymphocytes (1.2 - 3.4 /CUMM) 2.9 Absolute Monocytes (0.10 - 0.60 /CUMM) 0.9 H Absolute Eosinophils (0.0 - 0.7 /CUMM) 0.2 Absolute Basophils (0.0 - 0.2 /CUMM) 0 PUBS MCHC (33.0 - 37.0 G/DL) 32.5 L 06/09 06/08 06/08 0430 2255 1920 Chemistry Sodium (137 - 145 mmol/L) 126 L 122 L 122 L Potassium (3.5 - 5.1 mmol/L) 3.4 L 3.4 L 3.6 Chloride (98 - 107 mmol/L) 85 L 82 L 82 L Carbon Dioxide (22 - 30 mmol/L) 32 H 31 H 31 H Anion Gap (5 - 16) 10 9 9 BUN (9 - 20 mg/dL) 27 H 27 H 28 H Creatinine (0.7 - 1.2 mg/dL) 0.7 0.8 0.8 Estimated GFR (>60 ml/min) > 60 > 60 > 60 Glucose (65 - 99 mg/dL) 77 89 93 Calcium (8.4 - 10.2 mg/dL) 8.4 8.4 8.4 Phosphorus (2.5 - 4.5 mg/dL) 3.9 4.2 4.6 H Magnesium (1.6 - 2.3 mg/dL) 1.8 1.9 1.9 Total Bilirubin (0.2 - 1.3 mg/dL) 2.8 H 2.6 H 2.7 H AST (17 - 59 U/L) 127 H 96 H 95 H ALT (21 - 72 U/L) 66 61 59 Albumin (3.5 - 5.0 g/dL) 3.5 3.6 3.6 Hematology CBC w Diff NO MAN DIFF REQ WBC (4.8 - 10.8 /CUMM) 12.1 H RBC (4.70 - 6.10 /CUMM) 2.03 L Hgb (14.0 - 18.0 G/DL) 7.9 L Hct (42 - 52 %) 23.9 L MCV (80.0 - 94.0 FL) 117.5 H MCH (27.0 - 31.0 PG) 38.8 H RDW (11.5 - 14.5 %) 21.5 H Plt Count (130 - 400 /CUMM) 85 L MPV (7.4 - 10.4 FL) 8.1 Gran % (42.2 - 75.2 %) 64.9 Lymphocytes % (20.5 - 51.1 %) 27.5 Monocytes % (1.7 - 9.3 %) 6.1 Eosinophils % (0 - 5 %) 1.2 Basophils % (0.0 - 2.0 %) 0.3 Absolute Granulocytes (1.4 - 6.5 /CUMM) 7.9 H Absolute Lymphocytes (1.2 - 3.4 /CUMM) 3.3 Absolute Monocytes (0.10 - 0.60 /CUMM) 0.7 H Absolute Eosinophils (0.0 - 0.7 /CUMM) 0.1 Absolute Basophils (0.0 - 0.2 /CUMM) 0 PUBS MCHC (33.0 - 37.0 G/DL) 33.0 06/08 06/08 06/08 1535 1434 1434 Chemistry Sodium (137 - 145 mmol/L) 121 L Potassium (3.5 - 5.1 mmol/L) 3.6 Chloride (98 - 107 mmol/L) 83 L Carbon Dioxide (22 - 30 mmol/L) 29 Anion Gap (5 - 16) 10 BUN (9 - 20 mg/dL) 29 H Creatinine (0.7 - 1.2 mg/dL) 0.7 Estimated GFR (>60 ml/min) > 60 Glucose (65 - 99 mg/dL) 98 Calcium (8.4 - 10.2 mg/dL) 8.5 Phosphorus (2.5 - 4.5 mg/dL) 4.6 H Magnesium (1.6 - 2.3 mg/dL) 1.8 Total Bilirubin (0.2 - 1.3 mg/dL) 2.8 H AST (17 - 59 U/L) 99 H ALT (21 - 72 U/L) 63 Albumin (3.5 - 5.0 g/dL) 3.5 Hematology Lymphocytes (%) 50 % Normal PMNs (%) 15 Misc Hematology Test (%) Other Body Source Fluid WBC (0 - 5 /CUMM) 450 H Fld Total RBCs Counted (0 /CUMM) 15224 H Fluid Glucose (mg/dL) 106 Fluid Total Protein (g/dL) 2.3 Fluid Albumin (g/dL) 1.2 Fluid LDH (U/L) 161 Fluid Amylase (U/L) < 30 Urines Ur Random Creatinine Cancelled U Random Total Protein Cancelled
[2016-06-11 14:06] VITALS: BP 140/70
[2016-06-11 22:07] VITALS: BP 140/80
--- NOTE | 2016-06-11 23:00 | NUR ---
AFTER ARANDA REMOVAL, PT DTV AT 2245. PT UNABLE TO VOID. BLADDER SCAN REVEALED 300ML. AUTOMATED EQUIPMENT ENGINEER TECHNICIAN TERE NOTIFIED. ORDER FOR STRAIGHT CATH ACKNOWLEDGED. PER AUTOMATED EQUIPMENT ENGINEER TECHNICIAN, OK TO WAIT TO SEE IF PT WILL URINATE. REPORT PASSED TO NEXT SHIFT RN. WILL CONTINUE TO MONITOR.
[2016-06-12 02:00] VITALS: BP 130/82
[2016-06-12 03:00] VITALS: BP 130/82
[2016-06-12 06:00] VITALS: BP 130/70
--- NOTE | 2016-06-12 06:55 | PN- Housestaff ---
Subjective Follow-up For: Hyponatremia, bilateral leg swelling Complaints: no complaints Subjective: I followed up and examined the patient twice today. He was lying comfortably on his bed in no apparent distress. In my first visit this morning, he had just woken up in Center little drowsy/groggy, but was more alert oriented and responsive in my second visit an hour after the first visit. He has been eating fine with the limitation of 600 mL by mouth in 24 hours, vitals have been stable, no issues overnight. Leg swelling has decreased to some extent but is still has erythema, and edema, but no pain. Of note, he did mention that he has decreased sensation over his fingers and feet. He has been getting straight catheterized, so still has some pink colored urine which is better today. He also wishes to get some help for his mental health, especially for his anxiety and alcohol related problem. CIWA score right now is 0, and he has not required any PRN lorazepam in the past 24 hours. Review of Systems Constitutional: Reports: no symptoms. EENTM: Reports: no symptoms. Cardiovascular: Reports: no symptoms. Respiratory: Reports: no symptoms. Gastrointestinal: Reports: no symptoms. Genitourinary: Reports: see HPI. Musculoskeletal: Reports: no symptoms. Skin: Reports: see HPI (erythema over legs). Neurological/Psychological: Reports: anxiety. Objective Last 24 Hrs of Vital Signs/I&O Vital Signs Date Time Temp Pulse Resp B/P Pulse O2 O2 Flow FiO2 Ox Delivery Rate 06/12 0600 97.5 80 16 130/70 95 Room Air 06/12 0300 98.1 80 16 130/82 95 Room Air 06/11 2207 98.4 79 20 140/80 96 Room Air 06/11 1505 Room Air Room Air 06/11 1406 98.5 80 20 140/70 91 Room Air Intake & Output 06/12 1600 06/12 0800 06/12 0000 Intake Total 100 Output Total Balance 100 Intake, Oral 100 Physical Exam General Appearance: Alert, Oriented X3, Cooperative, No Acute Distress Other Physical Findings: Physical examnination: General: obese patient, not in distress Head: Normocephalic, atraumatic Eyes: Pupils normal in size, regular, reacting to light and accommodation, EOM normal Ears: B/l normal on inspection Nose: Normal on inspection Throat/mouth: Moist mucosa Neck: Supple, full range of motion, no thyromegaly Heart: Regular rate, regular rhythm Lung: Normal breath sound bilaterally Added sound not heard Abd: Soft, non-tender, no distention appreciated Back: Normal range of motion Extremities: Normal knee exam bilaterally, b/l pedal edema present with some erythema over the shins, but non tender even on pressing, Distal neurovascular intact objectively, subjectively, he says he has decreased sensatio over his fingers Neurologic: Alert, oriented x3, Cranial exam grossly intact, Speech is clear and coherent, see ext exam about sensation Skin: Warm and dry Psychiatric: Calm, cooperative, coherant Current Medications: Current Medications Sig/Sonja Start time Last Medication Dose Route Stop Time Status Admin Benzocaine/Menthol 1 YUNIEL Q2P PRN 06/09 0045 AC 06/09 PO 0556 Bisacodyl 5 MG DAILY NEEDED PRN 06/13 0000 AC PO Folic Acid 1 MG DAILY 06/08 1000 AC 06/12 PO 1059 Furosemide 40 MG DAILY 06/10 1000 AC 06/12 IV 1100 Gabapentin 100 MG Q8 06/12 1400 AC 06/12 PO 1059 Hydrocortisone 1 LAURENT BID PRN 06/09 1830 AC EXT Lorazepam 0.5 MG ONCE 06/12 0000 DC PO 06/12 0001 Lorazepam 1 MG Q2P PRN 06/07 1830 AC 06/10 IV 2240 Lorazepam 2 MG Q2P PRN 06/07 1800 AC IV Multivitamins 1 TAB DAILY 06/08 1000 AC 06/12 PO 1059 Nystatin 1 LAURENT TID PRN 06/07 0915 AC 06/09 TOP 1142 Pantoprazole Sodium 40 MG DAILY 06/07 1000 AC 06/12 IV 1059 Patient Medication 1 ED .STK-MED ONE 06/11 1400 DC Teaching ED 06/11 1401 Polyethylene Glycol 17 GM DAILY 06/11 1012 AC 06/12 PO 1059 Senna/Docusate Sodium 2 TAB AT BEDTIME 06/11 2200 AC 06/11 PO 2129 Spironolactone 100 MG DAILY 06/10 1000 AC 06/12 PO 1059 Tramadol HCl 50 MG Q6-PRN PRN 06/12 0815 AC 06/12 PO 0819 Tramadol HCl 50 MG ONCE ONE 06/11 1415 DC 06/11 PO 06/11 1416 1441 Tramadol HCl 25 MG Q6-PRN PRN 06/11 1100 DC 06/12 PO 0100 Last 24 Hrs of Lab/Cb Results Last 24 Hrs of Labs/Mics: Laboratory Tests 06/12/16 0640: Anion Gap 6, Estimated GFR > 60, BUN/Creatinine Ratio 18.3, Serum Osmolality 271 L, Total Bilirubin 2.5 H, Direct Bilirubin 1.2 H, AST 87 H, ALT 67, Alkaline Phosphatase 255 H, Total Protein 6.5, Albumin 3.6, PT 16.0 H, INR 1.53 H, CBC w Diff NO MAN DIFF REQ, RBC 2.00 L, MCV 118.3 H, MCH 38.9 H, RDW 20.9 H, MPV 7.4, Gran % 64.5, Lymphocytes % 23.8, Monocytes % 9.3, Eosinophils % 2.0, Basophils % 0.4, Absolute Granulocytes 7.8 H, Absolute Lymphocytes 2.9, Absolute Monocytes 1.1 H, Absolute Eosinophils 0.2, Absolute Basophils 0, PUBS MCHC 32.9 L 06/12/16 0435: Urine Osmolality 554 06/11/16 1235: Urine Osmolality 342, Ur Random Creatinine 84.6, Ur Random Sodium 65, Ur Random Potassium 19.9, Fraction Sodium Excret 0.3 Orders CIWA Score (last 24 hrs): 0 Assessment/Plan Assessment: 31-year-old male with past medical history of gastritis, alcoholic pancreatitis, hypertension, hepatitis C, gallbladder polyp, hypothyroidism, chronic tobacco abuse and alcohol abuse status post failed rehabilitation, PTSD, anxiety, is here because of bilateral leg swelling and is currently being managed in the general medical floor for the following issues: #Hypervolemic hyponatremia Ongoing SIADH, secondary to alcoholic liver disease. He is on fluid restriction 600 mL per 24 hours and 2 g sodium restriction in his meals, besides this, he is currently getting IV Lasix 40 mg daily, and nephrology service has been following him. -Nephrology consult appreciated -According to telephone conversation with Dr. James Bansal earlier today, his fluid restriction has been relaxed to 800 mL from 600 mL per 24 hours, IV Lasix has been converted to by mouth Lasix 40 MG daily, but his sodium restriction is still maintained at 2 g per day. -He seems to be doing better, although slowly, with sodium today at 128, an increase from 127 yesterday. #History of hepatitis C, likely cirrhosis Patient has been followed by GI services, and has recommended a follow-up for his condition. -He needs to be screened for hepatocellular carcinoma given his history of hepatitis C. -He needs a follow-up of his MELD score for possible liver transplantation if it remains above 15. -He needs an outpatient endoscopic procedures to check and fix if necessary for varices #Macrocytic anemia -Most likely due to chronic alcohol abuse -We will continue folic acid by mouth daily #Thrombocytopenia Likely due to decompensated liver disease -vitamin K by mouth was given for 3 days #Neuropathic pain -Likely from chronic alcohol abuse, less likely causes are vitamin B12 deficiency which is unlikely as his level is 662 -Have started him on 100 mg of gabapentin 3 times a day from today #Alcohol detoxification Patient CIWA is 0 this morning, max of 5, mainly for anxiety and agitation in the past 24 hours -Already tapering him down on CIWA protocol -Awaiting psych input for other aspects of mental health issues as well, anxiety , PTSD Pain plan-acetaminophen Diet-regular diet continued as he had a regular/normal swallow evaluation this morning DVT prophylaxis-mechanical CODE STATUS-full code Problem List: 1. SIADH (syndrome of inappropriate ADH production) 2. Hepatitis C Pain Ratin Pain Location: feet bilaterally Pain Goal: Pain 4 or less Pain Plan: pain meds are ordered as prn Tomorrow's Labs & Rationales: CBC, BEP, INR, Mg, LFT
[2016-06-12 08:13] LABS: ABSOLUTE BASOPHIL COUNT 0 /CUMM (0.0-0.2); ABSOLUTE EOSINOPHIL COUNT 0.2 /CUMM (0.0-0.7); ABSOLUTE GRANULOCYTE CT 7.8 /CUMM (1.4-6.5); ABSOLUTE LYMPH COUNT 2.9 /CUMM (1.2-3.4); ABSOLUTE MONOCYTE COUNT 1.1 /CUMM (0.10-0.60); BASOPHIL % 0.4 % (0.0-2.0); GRANULOCYTE % 64.5 % (42.2-75.2); HEMATOCRIT 23.6 % (42-52); MEAN CORPUSCULAR HGB 38.9 PG (27.0-31.0); MEAN CORPUSCULAR HGB CONC 32.9 G/DL (33.0-37.0); MEAN CORPUSCULAR VOLUME 118.3 FL (80.0-94.0); MEAN PLATELET VOLUME 7.4 FL (7.4-10.4); PLATELET COUNT 68 /CUMM (130-400); RBC DISTRIBUTION WIDTH 20.9 % (11.5-14.5)
--- NOTE | 2016-06-12 12:21 | Patient Discharge Instructions ---
Discharge Instructions General Discharge Information You were seen/treated for: hyponatremia alcohol detox anemia Special Instructions: 1.Patient should get weekly labs CBC and CMP which should be copied to the sales account associate Dr Bansal. If any queries/suggestions, Dr Bansal will contact the snf. 2. [facility] E[facility] to assess for varices and a liver transplantation evaluation as his MELD score is 18 after a 6 month of sobriety. He also needs a repeat ultrasound for HCC screening and also to ensure stability of the gallbladder wall polyp. 3.Patient will needs IOP appointment which patient refused. Patient refused to release his psychiatric records. PATIENT NEEDS TO FOLLOW UP[ WITH HIS pSYCHIATRIST AT DISCHARGE. Diet Additional DIET Information: REGULAR DIET WITH 800 ML FLUID RESTRICTION( PLEASE DISCUSS WITH NEPHOLOGIST BEFORE CHANGING) Activity Full Activity/No Limits: Yes (as tolerated) Acute Coronary Syndrome Inclusion Criteria At DC or during hospital stay patient has or had the following: ACS DIAGNOSIS No Discharge Core Measures Meds if any: Prescribed or Continued at Discharge Meds if any: NOT Prescribed or Continued at Discharge Congestive Heart Failure Inclusion Criteria At DC or during hospital stay patient has or had the following: CHF DIAGNOSIS No Discharge Core Measures Meds if any: Prescribed or Continued at Discharge Meds if any: NOT Prescribed or Continued at Discharge Cerebrovascular accident Inclusion Criteria At DC or during hospital stay patient has or had the following: CVA/TIA Diagnosis No Discharge Core Measures Meds if any: Prescribed or Continued at Discharge Meds if any: NOT Prescribed or Continued at Discharge Venous thromboembolism Inclusion Criteria VTE Diagnosis No VTE Type NONE VTE Confirmed by (Test) NONE Discharge Core Measures - Per Current guidelines, there needs to be overlap - treatment for the first 5 days of Warfarin therapy. - If discharged on Warfarin prior to 5 days of - overlap therapy, the patient will need to be - assessed for post discharge needs including - *Post discharge parental anticoagulation - *Warfarin and/or parental anticoagulation education - *Follow up date to check INR post discharge At least 5 days overlap therapy as Inpatient No Meds if any: Prescribed or Continued at Discharge Note: Overlap Therapy is Warfarin and Anticoagulant Meds if any: NOT Prescribed or Continued at Discharge
[2016-06-12 14:56] VITALS: BP 125/80
--- NOTE | 2016-06-12 15:52 | PN- Att Addend ---
Attending MD Review Statement Attending Statement Attending MD Statement: examined this patient, discuss w/resident/PA/MOLDER, agreed w/resident/PA/MOLDER, reviewed EMR data (avail), discussed w/nursing Attending Assessment/Plan: Laboratory Tests 06/12/16 0640: Anion Gap 6, Estimated GFR > 60, BUN/Creatinine Ratio 18.3, Serum Osmolality 271 L, Total Bilirubin 2.5 H, Direct Bilirubin 1.2 H, AST 87 H, ALT 67, Alkaline Phosphatase 255 H, Total Protein 6.5, Albumin 3.6, PT 16.0 H, INR 1.53 H, CBC w Diff NO MAN DIFF REQ, RBC 2.00 L, MCV 118.3 H, MCH 38.9 H, RDW 20.9 H, MPV 7.4, Gran % 64.5, Lymphocytes % 23.8, Monocytes % 9.3, Eosinophils % 2.0, Basophils % 0.4, Absolute Granulocytes 7.8 H, Absolute Lymphocytes 2.9, Absolute Monocytes 1.1 H, Absolute Eosinophils 0.2, Absolute Basophils 0, PUBS MCHC 32.9 L 06/12/16 0435: Urine Osmolality 554 Vital Signs Date Time Temp Pulse Resp B/P Pulse O2 O2 Flow FiO2 Ox Delivery Rate 06/12 1456 98.7 68 20 125/80 98 06/12 0600 97.5 80 16 130/70 06/12 0600 97.5 80 16 130/70 95 Room Air 06/12 0300 98.1 80 16 130/82 95 Room Air 06/12 0200 98.1 80 16 130/82 06/11 2207 98.4 79 20 140/80 96 Room Air Patient seen and examined at bedside. Discussed with the patient the care plan. Patient seen by physical therapy today and there is doing little better. We were able to wean off the patient off oxygen as he is using incentive spirometry. We will discuss with nephrology today about switching Lasix to by mouth. We will also discuss with nephrology about the relaxing his fluid restriction given that his sodium is stable. His urine osmolality though is high this morning which could be secondary to Lasix. We will follow up on the recommendations. I also discussed with psychiatrist the care plan for the patient and they do not see the patient and give their recommendations.
--- NOTE | 2016-06-12 16:39 | NUR ---
SPOKE WITH PT'S DAUGHTER AT THIS TIME REGARDING PT'S POC. DAUGHTER STATES THAT PT WAS TAKING TRINTELLIX 10MG QD AT HOME, WHICH IS CURRENTLY NOT ORDERED AT THIS TIME. CALL PLACED TO [facility] AT THIS TIME, AWAITING CALL BACK. ALSO, DAUGHTER ASKING IF GI CONSULT WAS DONE AND WHEN THEY WILL PHYSICALLY SEE THE PATIENT.
[2016-06-12 22:35] VITALS: BP 136/80
[2016-06-13 06:00] VITALS: BP 146/70
--- NOTE | 2016-06-13 06:36 | PN- Housestaff ---
Subjective Follow-up For: Hyponatremia, bilateral leg swelling Complaints: hand numbness Subjective: I followed up and examined the patient today. He was lying comfortably in the bed, not in any apparent distress. He was alert, oriented, cooperative, and his only complaint was numbness over his hands, like yesterday. He did say that his numbness over her feet are somewhat less today. His fluid restriction was relaxed to 800 mL per 24 hours from 600 mL per 24 hours yesterday after speaking to Dr. Bansal, financial reporting analyst. His fluid balance is -975 ml. Vitals have been stable, and there are no overnight issues. CIWA scores the last 24 hours his maximum 3, monitor for tachycardia. He has not required lorazepam last 24 hours. Review of Systems Constitutional: Reports: no symptoms. EENTM: Reports: no symptoms. Cardiovascular: Reports: no symptoms. Respiratory: Reports: no symptoms. Gastrointestinal: Reports: no symptoms. Genitourinary: Reports: no symptoms. Musculoskeletal: Reports: no symptoms. Skin: Reports: no symptoms. Neurological/Psychological: Reports: see HPI, numbness. Hematologic/Endocrine: Reports: no symptoms. Objective Last 24 Hrs of Vital Signs/I&O Vital Signs Date Time Temp Pulse Resp B/P Pulse O2 O2 Flow FiO2 Ox Delivery Rate 06/12 2235 98.1 80 20 136/80 95 Room Air 06/12 1652 Room Air Room Air 06/12 1647 Room Air Room Air 06/12 1456 98.7 68 20 125/80 98 Intake & Output 06/13 0800 06/13 0000 06/12 1600 Intake Total 236 250 350 Output Total 600 1150 Balance 236 -350 -800 Intake, IV 0 0 Intake, Oral 236 250 350 Number 0 Bowel Movements Output, Urine 600 1150 Physical Exam General Appearance: Alert, Oriented X3, Cooperative, No Acute Distress Other Physical Findings: General: obese patient, not in distress Head: Normocephalic, atraumatic Eyes: Pupils normal in size, regular, reacting to light and accommodation, EOM normal Ears: B/l normal on inspection Nose: Normal on inspection Throat/mouth: Moist mucosa Neck: Supple, full range of motion, no thyromegaly Heart: Regular rate, regular rhythm Lung: Normal breath sound bilaterally Added sound not heard Abd: Soft, non-tender, no distention appreciated Back: Normal range of motion Extremities: Normal knee exam bilaterally, b/l pedal edema present and the erythema over the shins has decreased, but non tender even on pressing, Distal neurovascular intact objectively, subjectively, he says he has decreased sensatio over his hands b/l Neurologic: Alert, oriented x3, Cranial exam grossly intact, Speech is clear and coherent, see ext exam about sensation Skin: Warm and dry Psychiatric: Calm, cooperative, coherant Current Medications: Current Medications Sig/Sonja Start time Last Medication Dose Route Stop Time Status Admin Alprazolam 0.5 MG ONCE ONE 06/12 2200 DC 06/12 PO 06/12 2201 2209 Benzocaine/Menthol 1 YUNIEL Q2P PRN 06/09 0045 AC 06/09 PO 0556 Bisacodyl 5 MG DAILY NEEDED PRN 06/13 0000 AC 06/12 PO 1434 Folic Acid 1 MG DAILY 06/08 1000 AC 06/12 PO 1059 Furosemide 40 MG DAILY 06/13 1000 AC PO Furosemide 40 MG DAILY 06/10 1000 DC 06/12 IV 1100 Gabapentin 100 MG Q8 06/12 1400 AC 06/13 PO 0638 Hydrocortisone 1 LAURENT BID PRN 06/09 1830 AC EXT Lorazepam 1 MG Q2P PRN 06/07 1830 AC 06/10 IV 2240 Lorazepam 2 MG Q2P PRN 06/07 1800 AC IV Multivitamins 1 TAB DAILY 06/08 1000 AC 06/12 PO 1059 Nystatin 1 LAURENT TID PRN 06/07 0915 AC 06/09 TOP 1142 Pantoprazole Sodium 40 MG DAILY 06/07 1000 AC 06/12 IV 1059 Patient Medication 1 ED .STK-MED ONE 06/12 1401 [place] Teaching ED 06/12 1402 Polyethylene Glycol 17 GM DAILY 06/11 1012 AC 06/12 PO 1059 Senna/Docusate Sodium 2 TAB AT BEDTIME 06/11 2200 AC 06/12 PO 2040 Spironolactone 100 MG DAILY 06/10 1000 AC 06/12 PO 1059 Tramadol HCl 50 MG Q6-PRN PRN 06/12 0815 AC 06/13 PO 0300 Tramadol HCl 25 MG Q6-PRN PRN 06/11 1100 DC 06/12 PO 0100 Orders CIWA Score (last 24 hrs): 0 (max of 3 for tachycardia) Assessment/Plan Assessment: 31-year-old male with past medical history of gastritis, alcoholic pancreatitis, hypertension, hepatitis C, gallbladder polyp, hypothyroidism, chronic tobacco abuse and alcohol abuse status post failed rehabilitation, PTSD, anxiety, is here because of bilateral leg swelling and is currently being managed in the general medical floor for the following issues: #Hypervolemic hyponatremia Ongoing ADH hypersecretion, secondary to alcoholic liver disease. He is on fluid restriction 800 mL per 24 hours and 2 g sodium restriction in his meals, besides this, he is currently getting Lasix 40 mg daily, and nephrology service has been following him. -Nephrology consult appreciated -His sodium has been slowly creeping up to 127 today compared to 128 yesterday. According to financial reporting analyst, his sodium level is a susceptible as long as it is in the higher 120s and is getting better, but fluid restriction is the only means that seems to help his condition. -He might get better after his liver condition also gets better -We can start discharge disposition, with weekly chemistry and liver function test checks, and follow-up with financial reporting analyst one year if he goes into hyponatremia again #History of hepatitis C, likely cirrhosis Patient has been followed by GI services, and has recommended a follow-up for his condition. -He needs to be screened for hepatocellular carcinoma given his history of hepatitis C. -He needs a follow-up of his MELD score for possible liver transplantation if it remains above 15. -He needs an outpatient endoscopic procedures to check and fix if necessary for varices #Macrocytic anemia -Most likely due to chronic alcohol abuse -We will continue folic acid by mouth daily #Thrombocytopenia Likely due to decompensated liver disease -vitamin K by mouth was given for 3 days #Neuropathic pain -Likely from chronic alcohol abuse, less likely causes are vitamin B12 deficiency which is unlikely as his level is 662 -Have started him on 100 mg of gabapentin 3 times a day from today #Alcohol detoxification Patient CIWA is 0 this morning, max of 5, mainly for anxiety and agitation in the past 24 hours -Already tapering him down on CIWA protocol -Awaiting psych input for other aspects of mental health issues as well, anxiety , PTSD #History of PTSD/anxiety/alcohol abuse -He needs IOP follow-up and has been seen once by social work department. Psychiatry service has also been contacted for managing his ongoing anxiety symptoms and to plan follow-ups. According to social work department, patient needs to be physically able to attend follow-ups with IOP and thus might require short-term rehabilitation facility before getting into IOP placement. -Psychiatry has been following him, but agrees with the plan to follow him a IOP after he has regained his strength Pain plan-acetaminophen Diet-regular diet continued as he had a regular/normal swallow evaluation this morning DVT prophylaxis-mechanical CODE STATUS-full code Problem List: 1. Hyponatremia 2. Hepatitis C Pain Ratin Pain Location: - Pain Goal: Remain pain free Pain Plan: pain meds are ordered as prn Tomorrow's Labs & Rationales: CBC, BEP, INR, Mg, LFT to follow up on SIADH, hyponatremia, liver status (has hep c) with ascites
[2016-06-13 06:55] VITALS: BP 146/70
[2016-06-13 07:58] LABS: ABSOLUTE BASOPHIL COUNT 0 /CUMM (0.0-0.2); ABSOLUTE EOSINOPHIL COUNT 0.2 /CUMM (0.0-0.7); ABSOLUTE GRANULOCYTE CT 7.2 /CUMM (1.4-6.5); ABSOLUTE LYMPH COUNT 2.5 /CUMM (1.2-3.4); BASOPHIL % 0.3 % (0.0-2.0); EOSINOPHIL % 2.1 % (0-5); GRANULOCYTE % 65.5 % (42.2-75.2); HEMATOCRIT 24.7 % (42-52); MEAN CORPUSCULAR HGB 38.5 PG (27.0-31.0); MEAN CORPUSCULAR HGB CONC 32.7 G/DL (33.0-37.0); MEAN CORPUSCULAR VOLUME 117.7 FL (80.0-94.0); MEAN PLATELET VOLUME 7.2 FL (7.4-10.4); PLATELET COUNT 71 /CUMM (130-400); RBC DISTRIBUTION WIDTH 20.4 % (11.5-14.5)
[2016-06-13 08:25] LABS: PT 16.3 SEC (9.4-12.5)
--- NOTE | 2016-06-13 11:11 | PN- Nephrology ---
Assessment/Plan Assessment: Hyponatremia: This is a hypervolemic hyponatremia in the setting of a high ADH state from ETOH related liver disease. He needs to continue on a fluid restriction. OK to liberalize fluid restriction to 800 cc per day. Would continue PO lasix and spironolactone. Upon discharge would recommend weekly chemistries. Suggestion: Continue PO diuretic regimen Continue fluid restriction, 800 cc/day Subjective Subjective: No acute events Na 127, from 128 but fairly stable edema improving Review of Systems: no chest pain/sob c/o arm pains, on neurontin x1 day Objective Vital Signs and I&Os Vital Signs Date Time Temp Pulse Resp B/P Pulse O2 O2 Flow FiO2 Ox Delivery Rate 06/13 1019 Room Air Room Air 06/13 1017 Room Air Room Air 06/13 0655 98.2 85 18 146/70 96 Room Air 06/13 0600 98.2 85 18 146/70 06/12 2235 98.1 80 20 136/80 95 Room Air 06/12 1652 Room Air Room Air 06/12 1647 Room Air Room Air 06/12 1456 98.7 68 20 125/80 98 Intake & Output 06/13 1600 06/13 0400 06/12 1600 06/12 0400 06/11 1600 06/11 0400 Intake Total 50 486 500 100 370 180 Output Total 600 1725 1800 300 Balance 50 -114 -1225 100 -1430 -120 Intake, IV 0 0 0 50 Intake, Oral 50 486 500 100 320 180 Number 0 0 0 Bowel Movements Output, Urine 600 1725 1800 300 Physical Exam: General: NAD, A+O x3. HEENT: NC/AT. No icterus. Moist mucosa Neck: negative for AMINA, JVD CV: RRR, no m/r/g Pulm: CTAB, no rales Abd: soft, mild distension Lower Ext: trace edema Upper Ext: no AVFs or AVGs Neuro: neg tremor, asterixis : no jack catheter Current Medications: Current Medications Sig/Sonja Start time Last Medication Dose Route Stop Time Status Admin Alprazolam 0.5 MG ONCE ONE 06/12 2199 DC 06/12 PO 06/12 Benzocaine/Menthol 1 YUNIEL Q2P PRN 06/09 0045 AC 06/09 PO 0556 Bisacodyl 5 MG DAILY NEEDED PRN 06/13 0000 AC 06/12 PO 1434 Folic Acid 1 MG DAILY 06/08 1000 AC 06/13 PO 0828 Furosemide 40 MG DAILY 06/13 1000 AC 06/13 PO 0914 Furosemide 40 MG DAILY 06/10 1000 DC 06/12 IV 1100 Gabapentin 100 MG Q8 06/12 1400 AC 06/13 PO 0638 Hydrocortisone 1 LAURENT BID PRN 06/09 1830 AC EXT Lorazepam 1 MG Q2P PRN 06/07 1830 AC 06/10 IV 2240 Lorazepam 2 MG Q2P PRN 06/07 1800 AC IV Multivitamins 1 TAB DAILY 06/08 1000 AC 06/13 PO 0828 Nystatin 1 LAURENT TID PRN 06/07 0915 AC 06/09 TOP 1142 Pantoprazole Sodium 40 MG DAILY 06/07 1000 AC 06/13 IV 0833 Patient Medication 1 ED .STK-MED ONE 06/12 1401 [place] Teaching ED 06/12 1402 Polyethylene Glycol 17 GM DAILY 06/11 1012 AC 06/13 PO 0915 Senna/Docusate Sodium 2 TAB AT BEDTIME 06/11 2200 AC 06/12 PO 2040 Spironolactone 100 MG DAILY 06/10 1000 AC 06/13 PO 0828 Tramadol HCl 50 MG Q6-PRN PRN 06/12 0815 AC 06/13 PO 0915 Results Pertinent Lab Results: Laboratory Tests 06/13 06/12 0620 0640 Chemistry Sodium (137 - 145 mmol/L) 127 L 128 L Potassium (3.5 - 5.1 mmol/L) 3.8 4.1 Chloride (98 - 107 mmol/L) 88 L 87 L Carbon Dioxide (22 - 30 mmol/L) 34 H 35 H Anion Gap (5 - 16) 5 6 BUN (9 - 20 mg/dL) 10 11 Creatinine (0.7 - 1.2 mg/dL) 0.6 L 0.6 L Estimated GFR (>60 ml/min) > 60 > 60 BUN/Creatinine Ratio (7 - 25 %) 16.7 18.3 Serum Osmolality (285 - 295 MOSM/KG) 271 L Magnesium (1.6 - 2.3 mg/dL) 2.0 Total Bilirubin (0.2 - 1.3 mg/dL) 2.5 H 2.5 H Direct Bilirubin (< 0.4 mg/dL) 1.2 H 1.2 H AST (17 - 59 U/L) 76 H 87 H ALT (21 - 72 U/L) 67 67 Alkaline Phosphatase (< 127 U/L) 270 H 255 H Total Protein (6.3 - 8.2 g/dL) 6.5 6.5 Albumin (3.5 - 5.0 g/dL) 3.6 3.6 Coagulation PT (9.4 - 12.5 SEC) 16.3 H 16.0 H INR (0.90 - 1.17) 1.56 H 1.53 H Hematology CBC w Diff NO MAN DIFF REQ NO MAN DIFF REQ WBC (4.8 - 10.8 /CUMM) 11.0 H 12.0 H RBC (4.70 - 6.10 /CUMM) 2.10 L 2.00 L Hgb (14.0 - 18.0 G/DL) 8.1 L 7.8 L Hct (42 - 52 %) 24.7 L 23.6 L MCV (80.0 - 94.0 FL) 117.7 H 118.3 H MCH (27.0 - 31.0 PG) 38.5 H 38.9 H RDW (11.5 - 14.5 %) 20.4 H 20.9 H Plt Count (130 - 400 /CUMM) 71 L 68 L MPV (7.4 - 10.4 FL) 7.2 L 7.4 Gran % (42.2 - 75.2 %) 65.5 64.5 Lymphocytes % (20.5 - 51.1 %) 22.8 23.8 Monocytes % (1.7 - 9.3 %) 9.3 9.3 Eosinophils % (0 - 5 %) 2.1 2.0 Basophils % (0.0 - 2.0 %) 0.3 0.4 Absolute Granulocytes (1.4 - 6.5 /CUMM) 7.2 H 7.8 H Absolute Lymphocytes (1.2 - 3.4 /CUMM) 2.5 2.9 Absolute Monocytes (0.10 - 0.60 /CUMM) 1.0 H 1.1 H Absolute Eosinophils (0.0 - 0.7 /CUMM) 0.2 0.2 Absolute Basophils (0.0 - 0.2 /CUMM) 0 0 PUBS MCHC (33.0 - 37.0 G/DL) 32.7 L 32.9 L 03/28 03/27 03/27 03/27 0435 1235 1120 0630 Chemistry Sodium (137 - 145 mmol/L) 127 L Potassium (3.5 - 5.1 mmol/L) 3.7 Chloride (98 - 107 mmol/L) 86 L Carbon Dioxide (22 - 30 mmol/L) 35 H Anion Gap (5 - 16) 5 BUN (9 - 20 mg/dL) 12 Creatinine (0.7 - 1.2 mg/dL) 0.5 L Estimated GFR (>60 ml/min) > 60 BUN/Creatinine Ratio (7 - 25 %) 24.0 Serum Osmolality (285 - 295 MOSM/KG) 272 L Total Bilirubin (0.2 - 1.3 mg/dL) 2.6 H Direct Bilirubin (< 0.4 mg/dL) 1.4 H AST (17 - 59 U/L) 100 H ALT (21 - 72 U/L) 73 H Alkaline Phosphatase (< 127 U/L) 278 H Total Protein (6.3 - 8.2 g/dL) 6.3 Albumin (3.5 - 5.0 g/dL) 3.6 Coagulation PT (9.4 - 12.5 SEC) 15.7 H INR (0.90 - 1.17) 1.50 H Hematology CBC w Diff NO MAN DIFF REQ WBC (4.8 - 10.8 /CUMM) 12.9 H RBC (4.70 - 6.10 /CUMM) 1.98 L Hgb (14.0 - 18.0 G/DL) 7.7 L Hct (42 - 52 %) 23.4 L MCV (80.0 - 94.0 FL) 118.1 H MCH (27.0 - 31.0 PG) 39.0 H RDW (11.5 - 14.5 %) 21.0 H Plt Count (130 - 400 /CUMM) 71 L MPV (7.4 - 10.4 FL) 7.3 L Gran % (42.2 - 75.2 %) 64.1 Lymphocytes % (20.5 - 51.1 %) 24.5 Monocytes % (1.7 - 9.3 %) 9.4 H Eosinophils % (0 - 5 %) 1.6 Basophils % (0.0 - 2.0 %) 0.4 Absolute Granulocytes (1.4 - 6.5 /CUMM) 8.3 H Absolute Lymphocytes (1.2 - 3.4 /CUMM) 3.2 Absolute Monocytes (0.10 - 0.60 /CUMM) 1.2 H Absolute Eosinophils (0.0 - 0.7 /CUMM) 0.2 Absolute Basophils (0.0 - 0.2 /CUMM) 0 PUBS MCHC (33.0 - 37.0 G/DL) 33.0 Urines Urine Osmolality (300 - 1000 MOSM/KG) 554 342 Ur Random Creatinine (mg/dL) 84.6 Ur Random Sodium (30 - 90 mmol/L) 65 Ur Random Potassium (mmol/L) 19.9 Fraction Sodium Excret (<1% %) 0.3 06/10 1320 Chemistry Sodium (137 - 145 mmol/L) 129 L Potassium (3.5 - 5.1 mmol/L) 3.6 Chloride (98 - 107 mmol/L) 86 L Carbon Dioxide (22 - 30 mmol/L) 36 H Anion Gap (5 - 16) 7 BUN (9 - 20 mg/dL) 14 Creatinine (0.7 - 1.2 mg/dL) 0.6 L Estimated GFR (>60 ml/min) > 60 BUN/Creatinine Ratio (7 - 25 %) 23.3
--- NOTE | 2016-06-13 14:36 | PN- Att Addend ---
Attending MD Review Statement Attending Statement Attending MD Statement: examined this patient, discuss w/resident/PA/STOCK HOUSE WORKER, agreed w/resident/PA/STOCK HOUSE WORKER, reviewed EMR data (avail), discussed w/nursing, discussed w/ case mgmt Attending Assessment/Plan: Laboratory Tests 06/13/16 0620: Anion Gap 5, Estimated GFR > 60, BUN/Creatinine Ratio 16.7, Magnesium 2.0, Total Bilirubin 2.5 H, Direct Bilirubin 1.2 H, AST 76 H, ALT 67, Alkaline Phosphatase 270 H, Total Protein 6.5, Albumin 3.6, PT 16.3 H, INR 1.56 H, CBC w Diff NO MAN DIFF REQ, RBC 2.10 L, MCV 117.7 H, MCH 38.5 H, RDW 20.4 H, MPV 7.2 L, Gran % 65.5, Lymphocytes % 22.8, Monocytes % 9.3, Eosinophils % 2.1, Basophils % 0.3, Absolute Granulocytes 7.2 H, Absolute Lymphocytes 2.5, Absolute Monocytes 1.0 H, Absolute Eosinophils 0.2, Absolute Basophils 0, PUBS MCHC 32.7 L Vital Signs Date Time Temp Pulse Resp B/P Pulse O2 O2 Flow FiO2 Ox Delivery Rate 06/13 1019 Room Air Room Air 06/13 1017 Room Air Room Air 06/13 0655 98.2 85 18 146/70 96 Room Air 06/13 0600 98.2 85 18 146/70 06/12 2235 98.1 80 20 136/80 95 Room Air 06/12 1652 Room Air Room Air 06/12 1647 Room Air Room Air 06/12 1456 98.7 68 20 125/80 98 Patient seen and examined at bedside. Discussed with patient the care plan. Patient would likely need placement at to subacute rehabilitation due to his severe deconditioning. Hyponatremia-discussed with novelty twister tender the care plan. We will continue with fluid restriction and have relaxed it to 800 cc per day. We will see how he does with oral Lasix. We'll continue the same dose of Aldactone. Patient will need outpatient follow-up with the novelty twister tender as well as will need serial weekly chemistries to follow-up on the sodium as well as other electrolytes. Patient will also need an alcohol rehabilitation placement prior to discharge from subacute rehabilitation.
[2016-06-13 14:54] VITALS: BP 138/80
--- NOTE | 2016-06-13 20:23 | NUR ---
FOllowing patients progress as it relates to his current hospitalization. While the patient would likely benefit from an IOP for ETOH Dependence, at this time he is in need of short term rehab as he is not functionally depenedent. IOP can be facilitated after STR. Will collaborate with case management.
[2016-06-13 22:59] VITALS: BP 138/70
[2016-06-14 06:43] VITALS: BP 148/70
--- NOTE | 2016-06-14 07:07 | PN- Housestaff ---
Subjective Follow-up For: Hyponatremia, bilateral leg swelling Complaints: hand numbness, and pain sometimes, not new Subjective: I followed up and examined the patient today. He was lying comfortably in the bed, not in any apparent distress. He was alert, oriented, cooperative, and his only complaint was numbness over his hands, and sometimes pain, like yesterday. He is on 800ml fluid restricted diet for 24 hrs. CIWA in last 24 hrs: 2 for tachycardia Review of Systems Constitutional: Reports: no symptoms. EENTM: Reports: no symptoms. Cardiovascular: Reports: no symptoms. Respiratory: Reports: no symptoms. Gastrointestinal: Reports: no symptoms. Genitourinary: Reports: no symptoms. Musculoskeletal: Reports: no symptoms. Skin: Reports: no symptoms. Neurological/Psychological: Reports: anxiety, numbness (hands), tingling. Hematologic/Endocrine: Reports: no symptoms. Objective Last 24 Hrs of Vital Signs/I&O Vital Signs Date Time Temp Pulse Resp B/P Pulse O2 O2 Flow FiO2 Ox Delivery Rate 06/14 1417 98.0 80 20 142/70 93 Room Air 06/14 0643 98.5 75 20 148/70 98 Room Air 06/13 2259 98.6 76 20 138/70 97 Room Air Intake & Output 06/14 1600 06/14 0800 06/14 0000 Intake Total 240 250 240 Output Total 600 1000 200 Balance -360 -750 40 Intake, Oral 240 250 240 Number 0 Bowel Movements Output, Urine 600 1000 200 Physical Exam General Appearance: Alert, Oriented X3, Cooperative, No Acute Distress Other Physical Findings: General: obese patient, not in distress Head: Normocephalic, atraumatic Eyes: Pupils normal in size, regular, reacting to light and accommodation, EOM normal Ears: B/l normal on inspection Nose: Normal on inspection Throat/mouth: Moist mucosa Neck: Supple, full range of motion, no thyromegaly Heart: Regular rate, regular rhythm Lung: Normal breath sound bilaterally Added sound not heard Abd: Soft, non-tender, no distention appreciated Back: Normal range of motion Extremities: Normal knee exam bilaterally, b/l pedal edema present and the erythema over the shins has decreased, but non tender even on pressing, Distal neurovascular intact objectively, subjectively, he says he has decreased sensatio over his hands b/l Neurologic: Alert, oriented x3, Cranial exam grossly intact, Speech is clear and coherent, see ext exam about sensation Skin: Warm and dry Psychiatric: Calm, cooperative, coherant Current Medications: Current Medications Sig/Sonja Start time Last Medication Dose Route Stop Time Status Admin Benzocaine/Menthol 1 YUNIEL Q2P PRN 06/09 0045 AC 06/09 PO 0556 Bisacodyl 10 MG ONE ONE 06/14 1545 DC PO 06/14 1546 Bisacodyl 10 MG ONCE ONE 06/14 1015 DC MO 06/14 1016 Bisacodyl 5 MG DAILY NEEDED PRN 06/13 0000 AC 06/14 PO 0930 Folic Acid 1 MG DAILY 06/08 1000 AC 06/14 PO 0930 Furosemide 40 MG DAILY 06/13 1000 AC 06/14 PO 0930 Gabapentin 200 MG Q8 06/14 1400 CAN PO Gabapentin 200 MG Q8 06/14 1400 AC 06/14 PO 1256 Gabapentin 100 MG Q8 06/12 1400 DC 06/14 PO 0555 Hydrocortisone 1 LAURENT BID PRN 06/09 1830 AC EXT Lorazepam 1 MG Q2P PRN 06/07 1830 AC 06/10 IV 2240 Lorazepam 2 MG Q2P PRN 06/07 1800 AC IV Multivitamins 1 TAB DAILY 06/08 1000 AC 06/14 PO 0930 Nystatin 1 LAURENT TID PRN 06/07 0915 AC 06/09 TOP 1142 Pantoprazole Sodium 40 MG DAILY 06/07 1000 AC 06/14 IV 0927 Polyethylene Glycol 17 GM DAILY 06/14 1015 AC PO Polyethylene Glycol 17 GM DAILY 06/11 1012 DC 06/14 PO 0930 Senna/Docusate Sodium 2 TAB AT BEDTIME 06/11 2200 AC 06/13 PO 2122 Spironolactone 100 MG DAILY 06/10 1000 AC 06/14 PO 0930 Tramadol HCl 50 MG Q6-PRN PRN 06/12 0815 AC 06/14 PO 1205 Last 24 Hrs of Lab/Cb Results Last 24 Hrs of Labs/Mics: Laboratory Tests 06/14/16 0640: Anion Gap 4 L, Estimated GFR > 60, BUN/Creatinine Ratio 18.0, Magnesium 1.9, Total Bilirubin 2.5 H, Direct Bilirubin 1.3 H, AST 66 H, ALT 58, Alkaline Phosphatase 256 H, Total Protein 6.4, Albumin 3.6, PT 16.8 H, INR 1.61 H, CBC w Diff NO MAN DIFF REQ, RBC 2.11 L, MCV 116.3 H, MCH 37.5 H, RDW 20.7 H, MPV 7.4, Gran % 71.1, Lymphocytes % 19.0 L, Monocytes % 7.7, Eosinophils % 1.8, Basophils % 0.4, Absolute Granulocytes 7.4 H, Absolute Lymphocytes 2.0, Absolute Monocytes 0.8 H, Absolute Eosinophils 0.2, Absolute Basophils 0, PUBS MCHC 32.3 L Assessment/Plan Assessment: 31-year-old male with past medical history of gastritis, alcoholic pancreatitis, hypertension, hepatitis C, gallbladder polyp, hypothyroidism, chronic tobacco abuse and alcohol abuse status post failed rehabilitation, PTSD, anxiety, is here because of bilateral leg swelling and is currently being managed in the general medical floor for the following issues: #Hypervolemic hyponatremia Ongoing ADH hypersecretion, secondary to alcoholic liver disease. He is on fluid restriction 800 mL per 24 hours and 2 g sodium restriction in his meals, besides this, he is currently getting Lasix 40 mg daily, and nephrology service has been following him. -Nephrology consult appreciated -His sodium has been slowly creeping up to 127 today again compared to 127 yesterday. According to appointment specialist, his sodium level is acceptible as long as it is in the higher 120s and is getting better, but fluid restriction is the only means that seems to help his condition. 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 -He needs to be screened for hepatocellular carcinoma given his history of cirrhosis. -He needs a follow-up of his MELD score for possible liver transplantation if it remains above 15. -He needs an outpatient endoscopic procedures to check and fix if necessary for varices #Macrocytic anemia -Most likely due to chronic alcohol abuse -We will continue folic acid by mouth daily #Thrombocytopenia Likely due to decompensated liver disease -vitamin K by mouth was given for 3 days #Neuropathic pain -Likely from chronic alcohol abuse, less likely causes are vitamin B12 deficiency which is unlikely as his level is 662 -Continue 200 mg of gabapentin PO 3 times a day #Alcohol detoxification Patient CIWA is 0 this morning, max of 2, mainly for tachycardia #History of PTSD/anxiety/alcohol abuse -He needs IOP follow-up and has been seen once by social work department. -Psychiatry service met his today and suggests discontinue alprazolam, as he provided minimal information to the psychiatric consult, and refused to release information from his previous psychiatrist -He however, agreed to follow-up with his current psychiatrist after his discharge -He understands that he needs IOP follow-up program but she refused a referral to [facility] program Pain plan-acetaminophen Diet-regular diet continued as he had a regular/normal swallow evaluation this morning DVT prophylaxis-mechanical CODE STATUS-full code Problem List: 1. Hyponatremia 2. ADH disorder Pain Ratin Pain Location: hands, when present Pain Goal: Pain 4 or less Pain Plan: tramadol prn Tomorrow's Labs & Rationales: BEP, Mg, LFT, INR
--- NOTE | 2016-06-14 08:08 | Discharge Summary ---
See Addendum Visit Information Visit Dates Admission Date: 06/07/16 Discharge Date: 06/14/2016 Hospital Course Course Attending Physician: SADIE JEREZ,KENNEDI Borjas [facility]: 31 yo M with h/o alcohol dependence, pancreatitis, PTSD, anxiety, was admitted for worsening lower extremity edema, abdominal distension, lethargy, weakness, inability to walk, poor appetite and nausea/ retching. Last EGD was 2 yrs ago showed gastritis, no varices. At admission, VSS. Exam: lethargic, somnolent, oriented x 2, no spider nevi. ?Flapping tremors +. Icterus+. Chest b/l clear, Heart S1S2 regular, Abd soft, distended, fluid++, no tenderness. Extremities: b/l 3+ pitting edema extending into thigh. Pulses difficult to palpate. Chronic skin changes to both LE. Labs: WBC 16.1, H/H 8.2/ 24.8 (13.8/42.1 on 10/20/15), macrocytic anemia, Plt 102, INR 2.61, PT 27.1, Na 114, BUN 21, glucose 135, S. Osm 247, T. Bili 2.9, AST 89, ALT 47, Alk phos 182 , ammonia <9, CT abd/pelvis: hepatosplenomegaly, abdominal ascites, b/l pleural effusions. EKG: SR with prolonged Qtc. He was initially admitted to the ICU and later moved to general medicine floor after his condition was stabilized. Imaging: CHEST XRAY: Small bilateral pleural effusions. Small bibasilar infiltrate/ atelectasis at the posterior dependent lung bases. Abdominal pelvis CT :Hepatosplenomegaly. Abdominal ascites. Bilateral pleural effusions. Echo:Normal left ventricular diastolic filling pattern for age. The ejection fraction is visually estimated at >65 %. Normal triplex scan without evidence of deep venous thrombosis involving the bilateral lower extremities. Edema in the bilateral lower extremities. Absominal US. No bile duct dilatation. 2. Enlarged fatty liver. 3. Gallbladder contains sludge and a single polyp. 4. Ascites. Problems: Altered mental status insetting of severe hyponatremia: Duration was unknown whether acute or chronic,hypoosmolar hypervolemic hyponatremia,sodium level on admission 114, patient received hypertonic saline and ER, on-call Nephrology services consulted, recommended NPO, jack catheter, IV lasix 80 mg x 1 and NO fluids. He was diuresed well with IV Lasix, administered by mouth KCl and magnesium as needed. Lites were checked every 2 hours for the initial 24 hours. He was put on a fluid restriction of 600 mL which was later relaxed to 800 with improvement of Na level. The plan was to hold on on any fluids including IV hypertonic saline or vasopressin receptor blockade unless the patient showed no response to diuresis/fluid restriction. At risk for central demyleinating syndrome w rapid correction & target was keep Na to low 120s over intial 24 hrs. However since the patient did not respond much but dropped to 111, hypertonic saline was started and tapered down in the next 24 hours. IV Lasix was continued. Blood draws were relaxed to every 4 to every 6 hours. Patient had hypervolemic hyponatremia in the setting of a high ADH state from ETOH related liver disease. Mental status slowly improved with improvement of sodium levels. He passed a swallow eval and was started on by mouth. Diet which was later advanced to regular diet. He was continued on PO lasix and Aldactone. Patient was placed on 2 g sodium restriction in his diet as an diuresed well with improvement in edema and sodium levels. He was discharged at a sodium level of 132. Patient should get weekly labs CBC and CMP which should be copied to the lead software test engineer Dr Bansal. If any queries/suggestions, Dr Bansal will contact the assisted. Decompensated liver failure: Likely 2/2 alcohol abuse, also further worsening likely secondary to Tylenol, he has seen taking 2 g of Tylenol for almost 2 years, AST/ALT ratio close to 2:1 favoring alcoholic decompensation, elevated direct bili, abdominal CT showed evidence of Hepatosplenomegaly, Abdominal ascites and Bilateral pleural effusions but no evidence of cirrhosis. Patient was maintained on a low sodium diet. LFTs and INR was followed up regularly. He underwent a paracentesis which showed a cell count and his SBP was ruled out. Patient needs to follow up with ALICE ARNOLD MD as an outpatient to get an EGD to assess for varices and a liver transplantation evaluation as his MELD score is 18 after a 6 month of sobriety. He also needs a repeat ultrasound for HCC screening and also to ensure stability of the gallbladder wall polyp. Alcohol detoxification: Patient presented with altered mental status, schedule Ativan was held until his mentation improved. He received when necessary Ativan later when his mentation significantly improved. CIWA scores were closely monitored and patient also received psychiatric and social work consults. The plan was is to send him to a short-term rehabilitation to help with alcohol withdrawal and regained strength in his lower extremities. Patient will needs IOP appointment which patient refused. Please follow up with your psychiatrist Dr. Michael Cuevas after discharge. Patient does not want to sign disclosure of his psychiatric records. Advised to resume home medication Vortioxetine after discharge. History of PTSD/anxiety/alcohol abuse: He was seen by psychiatry in the hospital who recommended postdischarge follow-up. He needs IOP follow-up and has been seen by social work department. Patient needs to be physically able to attend follow-ups with IOP and thus might require short-term rehabilitation facility before getting into IOP placement. Bilateral pleural effusions: Patient was found to have bilateral pleural effusion on abdominal CT upon admission,Noted on abdominal CT, no respiratory compromise, he has been satting in high 90s on room air. We'll keep monitoring oxygen saturation, and repeat follow-up chest x-ray Bilateral lower extremity swelling Patient presented with 4+ pitting edema of bilateral lower extremities with decreased mobility due to lower extremity pain, likely secondary to fluid overload secondary to decompensated liver disease. Bilateral Dopplers were negative for DVT. Swelling improved with diuresis. Neuropathic pain: Likely from chronic alcohol abuse, less likely causes are vitamin B12 deficiency which is unlikely as his level is 662. Was started him on 100 mg of gabapentin 3 times a day. Macrocytic Anemia: Most likely due to chronic alcohol abuse.Continued on folic acid by mouth daily. Thrombocytopenia: Likely due to decompensated liver disease. Vitamin K by mouth was given for 3 days FULL CODE DVTP: ALPS DIET: REGULAR DIET WITH 800 ML FLUID RESTRICTION( PLEASE DISCUSS WITH NEPHOLOGIST BEFORE CHANGING) Allergies: Coded Allergies: No Known Allergies (10/20/15) Significant Procedures: Echo done on 06/07/16: EF>65% CONCLUSIONS Normal left ventricular size, wall thickness and systolic function with no obvious regional wall motion abnormalities. Mild left atrial dilatation. No significant valve abnormalities. Pulmonary artery systolic pressure is mildly elevated at 40 mm Hg. Dilated IVC. Physiologic valvular regurgitation. Zeyad Garcia M.D. (Electronically Signed) Final Date: 08 June 2016 09:10 CT abdomen-pelvis: IMPRESSION: Hepatosplenomegaly. Abdominal ascites. Bilateral pleural effusions. DICTATED BY: MARK BECKER MD DATE/TIME DICTATED:06/07/16230 SAP SECURITY CONSULTANT:RAD.BERNAL DATE/TIME TRANSCRIBED:06/07/16230 Ultrasound of abdomen: IMPRESSION: 1. No bile duct dilatation. 2. Enlarged fatty liver. 3. Gallbladder contains sludge and a single polyp. 4. Ascites. DICTATED BY: JEFF CONTRERAS MD DATE/TIME DICTATED:06/07/161349 SAP SECURITY CONSULTANT:RADBreannBERNAL DATE/TIME TRANSCRIBED:06/07/161349 CXR: IMPRESSION: Small bilateral pleural effusions. Small bibasilar infiltrate/atelectasis at the posterior dependent lung bases. DICTATED BY: MARK BECKER MD DATE/TIME DICTATED:06/07/16434 SAP SECURITY CONSULTANT:RAD.BERNAL DATE/TIME TRANSCRIBED:06/07/16434 Pertinent Lab Results: BEP and LFT on discharge date: 06/15/16 0810: Anion Gap 8, Estimated GFR > 60, BUN/Creatinine Ratio 14.0, Magnesium 1.8, Total Bilirubin 2.4 H, Direct Bilirubin 1.1 H, AST 63 H, ALT 56, Alkaline Phosphatase 265 H, Total Protein 6.9, Albumin 3.9 Disposition Summary Disposition Principal Diagnosis: Altered mental status insetting of severe hyponatremia Additional Diagnosis: Decompensated liver failure Alcohol detoxification Discharge Disposition: SNF Discharge Instructions General Discharge Information Code Status: Full Code Patient's Diet: DIET: REGULAR DIET WITH 800 ML FLUID RESTRICTION( PLEASE DISCUSS WITH NEPHOLOGIST BEFORE CHANGING) Patient's Activity: as tolerated Follow-Up Instructions/Appts: 1.Patient should get weekly labs CBC and CMP which should be copied to the lead software test engineer Dr Bansal. If any queries/suggestions, Dr Bansal will contact the assisted. 2. Patient needs to follow up with ALICE ARNOLD MD as an outpatient to get an EGD to assess for varices and a liver transplantation evaluation as his MELD score is 18 after a 6 month of sobriety. He also needs a repeat ultrasound for HCC screening and also to ensure stability of the gallbladder wall polyp. 3.Patient will needs IOP appointment which patient refused. Please follow up with your psychiatrist Dr. Michael Cuevas after discharge. Medications at Discharge Discharge Medications: Stop taking the following medications: Alprazolam (Alprazolam) 0.5 MG TABLET ORAL THREE TIMES A DAY NEEDED Qty = 90 [TANDRILAX] 1 TAB TAB ORAL NEEDED as needed for PAIN Continue taking these medications: Quetiapine Fumarate (Seroquel XR) 200 MG TAB.ER.24H 1 Tablet ORAL Every night Qty = 23 Comments: NOT GIVEN Prazosin HCl (Prazosin HCl) 1 MG CAPSULE 1 Capsule ORAL Every night Qty = 30 Comments: NOT GIVEN Start taking the following new medications: Spironolactone (Aldactone) 25 MG TABLET 100 Milligram ORAL DAILY Days = 30 No Refills Comments: Last Taken: 06/15/16 Time: 0930 AM Tramadol HCl (Tramadol HCl) 50 MG TABLET 50 Milligram ORAL EVERY 6 HOURS NEEDED as needed for PAIN SCALE 4-6 ( MODERATE) Days = 30 No Refills Comments: Last Taken: 06/15/16 Time: Gabapentin (Gabapentin) 100 MG CAPSULE 200 Milligram ORAL EVERY 8 HOURS Days = 30 No Refills Comments: Last Taken: 06/15/16 Time: Furosemide (Lasix) 40 MG TABLET 40 Milligram ORAL DAILY Days = 30 No Refills Comments: Last Taken: 06/15/16 Time: 0930 AM Benzocaine/Menthol (Chloraseptic Sore Throat Lozng) 6 MG-10 MG LOZENGE 1 Lozenge ORAL EVERY 2 HOURS NEEDED as needed for Sore Throat Days = 30 No Refills Comments: NOT GIVEN Bisacodyl (Bisacodyl) 5 MG TABLET.DR 5 Milligram ORAL DAILY NEEDED as needed for CONSTIPATION Days = 30 No Refills Comments: Last Taken: 06/14/16 Time: 0930 AM Polyethylene Glycol 3350 (Miralax) 17 GRAM/DOSE POWDER 17 Gram ORAL DAILY Days = 30 No Refills Comments: NOT GIVEN Sennosides/Docusate Sodium (Senna Plus Tablet) 8.6 MG-50 MG TABLET 2 Tablet ORAL AT BEDTIME as needed for constipation Days = 30 No Refills Comments: Last Taken: 06/14/16 Time: 9 PM Nystatin (Nystatin) 100,000 UNIT/GRAM CREAM..G. 1 Application On the skin THREE TIMES DAILY as needed for groin rash Days = 30 No Refills Comments: NOT GIVEN Hydrocortisone (Hydrocortisone) 0.5 % CREAM..G. 1 Application ON SKIN TWICE DAILY as needed for RASH Days = 30 No Refills Comments: Last Taken: 06/15/16 Time: 0900 AM Folic Acid (Folic Acid) 1 MG TABLET 1 Milligram ORAL DAILY Days = 30 No Refills Comments: Last Taken: 06/15/16 Time: 0930 AM Multivitamin (One Daily Multivitamin) 1 EACH TABLET 1 Tablet ORAL DAILY Days = 30 No Refills Comments: Last Taken: 06/15/16 Time: 0930 AM [Vitamin B1] 100 Milligram ORAL DAILY Qty = 30 No Refills Comments: Last Taken: 06/15/16 Time: Pantoprazole Sodium (Protonix) 40 MG GRANPKT.DR 40 Milligram ORAL DAILY Days = 30 No Refills Comments: Last Taken: 06/15/16 Time: 0930 AM Copies To: SADIE JEREZ,KENNEDI Borjas; MI JEREZ,STANLEY TRINIDAD MD,ALICE Attending MD Review Statement Documenting Attending: KENNEDI NOEL MD Other Findings: Please see my attending note for more details. Agree with the above discharge plan.
[2016-06-14 08:36] LABS: PT 16.8 SEC (9.4-12.5)
[2016-06-14 08:47] LABS: ABSOLUTE BASOPHIL COUNT 0 /CUMM (0.0-0.2); ABSOLUTE EOSINOPHIL COUNT 0.2 /CUMM (0.0-0.7); ABSOLUTE GRANULOCYTE CT 7.4 /CUMM (1.4-6.5); ABSOLUTE MONOCYTE COUNT 0.8 /CUMM (0.10-0.60); BASOPHIL % 0.4 % (0.0-2.0); EOSINOPHIL % 1.8 % (0-5); GRANULOCYTE % 71.1 % (42.2-75.2); HEMATOCRIT 24.5 % (42-52); MEAN CORPUSCULAR HGB 37.5 PG (27.0-31.0); MEAN CORPUSCULAR HGB CONC 32.3 G/DL (33.0-37.0); MEAN CORPUSCULAR VOLUME 116.3 FL (80.0-94.0); MEAN PLATELET VOLUME 7.4 FL (7.4-10.4); PLATELET COUNT 89 /CUMM (130-400); RBC DISTRIBUTION WIDTH 20.7 % (11.5-14.5); RED BLOOD CELL CT 2.11 /CUMM (4.70-6.10); WHITE BLOOD CELL COUNT 10.4 /CUMM (4.8-10.8)
--- NOTE | 2016-06-14 10:14 | PN- Nephrology ---
Assessment/Plan Assessment: Hyponatremia: This is a hypervolemic hyponatremia in the setting of a high ADH state from ETOH related liver disease. He should continue on a fluid restriction (currently 800 cc per day). Would continue PO lasix and spironolactone. Upon discharge would recommend weekly chemistries. Suggestion: Continue PO diuretic regimen Continue fluid restriction, 800 cc/day Subjective Subjective: No acute events seen ambulating the hallway Na stable 127 hand pain/burning persists Review of Systems: no sob/cp no fever/chills Objective Vital Signs and I&Os Vital Signs Date Time Temp Pulse Resp B/P Pulse O2 O2 Flow FiO2 Ox Delivery Rate 06/14 0643 98.5 75 20 148/70 98 Room Air 06/13 2259 98.6 76 20 138/70 97 Room Air 06/13 1454 98.4 80 20 138/80 95 Room Air 06/13 1019 Room Air Room Air 06/13 1017 Room Air Room Air Intake & Output 06/14 1600 06/14 0400 06/13 1600 06/13 0400 06/12 1600 06/12 0400 Intake Total 250 240 330 486 500 100 Output Total 1000 200 851 839 6457 Balance -750 40 -170 -114 -1225 100 Intake, IV 0 0 0 Intake, Oral 250 240 330 486 500 100 Number 0 0 0 0 Bowel Movements Output, Urine 1000 [phone] Physical Exam: General: NAD, A+O x3. HEENT: NC/AT. No icterus. Moist mucosa Neck: negative for AMINA, JVD CV: RRR, no m/r/g Pulm: CTAB, no rales Abd: soft, mild distension Lower Ext: trace edema Upper Ext: no AVFs or AVGs Neuro: neg tremor, asterixis : no jack catheter Current Medications: Current Medications Sig/Sonja Start time Last Medication Dose Route Stop Time Status Admin Benzocaine/Menthol 1 YUNIEL Q2P PRN 06/09 0045 AC 06/09 PO 0556 Bisacodyl 5 MG DAILY NEEDED PRN 06/13 0000 AC 06/14 PO 0930 Folic Acid 1 MG DAILY 06/08 1000 AC 06/14 PO 0930 Furosemide 40 MG DAILY 06/13 1000 AC 06/14 PO 0930 Gabapentin 100 MG Q8 06/12 1400 AC 06/14 PO 0555 Hydrocortisone 1 LAURENT BID PRN 06/09 1830 AC EXT Lorazepam 1 MG Q2P PRN 06/07 1830 AC 06/10 IV 2240 Lorazepam 2 MG Q2P PRN 06/07 1800 AC IV Multivitamins 1 TAB DAILY 06/08 1000 AC 06/14 PO 0930 Nystatin 1 LAURENT TID PRN 06/07 0915 AC 06/09 TOP 1142 Pantoprazole Sodium 40 MG DAILY 06/07 1000 AC 06/14 IV 0927 Polyethylene Glycol 17 GM DAILY 06/11 1012 AC 06/14 PO 0930 Senna/Docusate Sodium 2 TAB AT BEDTIME 06/11 2200 AC 06/13 PO 2122 Spironolactone 100 MG DAILY 06/10 1000 AC 06/14 PO 0930 Tramadol HCl 50 MG Q6-PRN PRN 06/12 0815 AC 06/14 PO 0556 Results Pertinent Lab Results: Laboratory Tests 06/14 06/13 0640 0620 Chemistry Sodium (137 - 145 mmol/L) 127 L 127 L Potassium (3.5 - 5.1 mmol/L) 4.3 3.8 Chloride (98 - 107 mmol/L) 91 L 88 L Carbon Dioxide (22 - 30 mmol/L) 32 H 34 H Anion Gap (5 - 16) 4 L 5 BUN (9 - 20 mg/dL) 9 10 Creatinine (0.7 - 1.2 mg/dL) 0.5 L 0.6 L Estimated GFR (>60 ml/min) > 60 > 60 BUN/Creatinine Ratio (7 - 25 %) 18.0 16.7 Magnesium (1.6 - 2.3 mg/dL) 1.9 2.0 Total Bilirubin (0.2 - 1.3 mg/dL) 2.5 H 2.5 H Direct Bilirubin (< 0.4 mg/dL) 1.3 H 1.2 H AST (17 - 59 U/L) 66 H 76 H ALT (21 - 72 U/L) 58 67 Alkaline Phosphatase (< 127 U/L) 256 H 270 H Total Protein (6.3 - 8.2 g/dL) 6.4 6.5 Albumin (3.5 - 5.0 g/dL) 3.6 3.6 Coagulation PT (9.4 - 12.5 SEC) 16.8 H 16.3 H INR (0.90 - 1.17) 1.61 H 1.56 H Hematology CBC w Diff NO MAN DIFF REQ NO MAN DIFF REQ WBC (4.8 - 10.8 /CUMM) 10.4 11.0 H RBC (4.70 - 6.10 /CUMM) 2.11 L 2.10 L Hgb (14.0 - 18.0 G/DL) 7.9 L 8.1 L Hct (42 - 52 %) 24.5 L 24.7 L MCV (80.0 - 94.0 FL) 116.3 H 117.7 H MCH (27.0 - 31.0 PG) 37.5 H 38.5 H RDW (11.5 - 14.5 %) 20.7 H 20.4 H Plt Count (130 - 400 /CUMM) 89 L 71 L MPV (7.4 - 10.4 FL) 7.4 7.2 L Gran % (42.2 - 75.2 %) 71.1 65.5 Lymphocytes % (20.5 - 51.1 %) 19.0 L 22.8 Monocytes % (1.7 - 9.3 %) 7.7 9.3 Eosinophils % (0 - 5 %) 1.8 2.1 Basophils % (0.0 - 2.0 %) 0.4 0.3 Absolute Granulocytes (1.4 - 6.5 /CUMM) 7.4 H 7.2 H Absolute Lymphocytes (1.2 - 3.4 /CUMM) 2.0 2.5 Absolute Monocytes (0.10 - 0.60 /CUMM) 0.8 H 1.0 H Absolute Eosinophils (0.0 - 0.7 /CUMM) 0.2 0.2 Absolute Basophils (0.0 - 0.2 /CUMM) 0 0 PUBS MCHC (33.0 - 37.0 G/DL) 32.3 L 32.7 L 06/12 06/12 06/11 06/11 0640 0435 1235 1120 Chemistry Sodium (137 - 145 mmol/L) 128 L Potassium (3.5 - 5.1 mmol/L) 4.1 Chloride (98 - 107 mmol/L) 87 L Carbon Dioxide (22 - 30 mmol/L) 35 H Anion Gap (5 - 16) 6 BUN (9 - 20 mg/dL) 11 Creatinine (0.7 - 1.2 mg/dL) 0.6 L Estimated GFR (>60 ml/min) > 60 BUN/Creatinine Ratio (7 - 25 %) 18.3 Serum Osmolality (285 - 295 MOSM/KG) 271 L 272 L Total Bilirubin (0.2 - 1.3 mg/dL) 2.5 H Direct Bilirubin (< 0.4 mg/dL) 1.2 H AST (17 - 59 U/L) 87 H ALT (21 - 72 U/L) 67 Alkaline Phosphatase (< 127 U/L) 255 H Total Protein (6.3 - 8.2 g/dL) 6.5 Albumin (3.5 - 5.0 g/dL) 3.6 Coagulation PT (9.4 - 12.5 SEC) 16.0 H INR (0.90 - 1.17) 1.53 H Hematology CBC w Diff NO MAN DIFF REQ WBC (4.8 - 10.8 /CUMM) 12.0 H RBC (4.70 - 6.10 /CUMM) 2.00 L Hgb (14.0 - 18.0 G/DL) 7.8 L Hct (42 - 52 %) 23.6 L MCV (80.0 - 94.0 FL) 118.3 H MCH (27.0 - 31.0 PG) 38.9 H RDW (11.5 - 14.5 %) 20.9 H Plt Count (130 - 400 /CUMM) 68 L MPV (7.4 - 10.4 FL) 7.4 Gran % (42.2 - 75.2 %) 64.5 Lymphocytes % (20.5 - 51.1 %) 23.8 Monocytes % (1.7 - 9.3 %) 9.3 Eosinophils % (0 - 5 %) 2.0 Basophils % (0.0 - 2.0 %) 0.4 Absolute Granulocytes (1.4 - 6.5 /CUMM) 7.8 H Absolute Lymphocytes (1.2 - 3.4 /CUMM) 2.9 Absolute Monocytes (0.10 - 0.60 /CUMM) 1.1 H Absolute Eosinophils (0.0 - 0.7 /CUMM) 0.2 Absolute Basophils (0.0 - 0.2 /CUMM) 0 PUBS MCHC (33.0 - 37.0 G/DL) 32.9 L Urines Urine Osmolality (300 - 1000 MOSM/KG) 554 342 Ur Random Creatinine (mg/dL) 84.6 Ur Random Sodium (30 - 90 mmol/L) 65 Ur Random Potassium (mmol/L) 19.9 Fraction Sodium Excret (<1% %) 0.3
--- NOTE | 2016-06-14 13:09 | Event Note ---
Event Note Event Note: Erratum: Patient denies history of hepatitis C, his current hepatitis C panel is negative. Please ignore earlier mentioning of hepatitis C anywhere for this patient. Thank you. Chriss Lane MD
[2016-06-14] MEDS ORDERED: CHLORASEPTIC S1 EACH PO (13:35)
[2016-06-14] MEDS ORDERED: BISACODYL5 M1 PO (13:35)
[2016-06-14] MEDS ORDERED: SENNA PLUS TAB1 EACH PO (13:35)
[2016-06-14] MEDS ORDERED: LASIX40 M1 PO (13:35)
[2016-06-14] MEDS ORDERED: TRAMADOL HCL50 M1 PO (13:35)
[2016-06-14] MEDS ORDERED: GABAPENTIN100 M2 PO (13:35)
[2016-06-14] MEDS ORDERED: ALDACTONE25 MG PO (13:35)
[2016-06-14] MEDS ORDERED: PROTONIX40 M4 PO (13:35)
[2016-06-14] MEDS ORDERED: MIRALAX119 GM PO (13:35)
[2016-06-14] MEDS ORDERED: ONE DAILY MULT1 EAC2 PO (13:38)
[2016-06-14] MEDS ORDERED: FOLIC ACID1 M1 PO (13:38)
[2016-06-14] MEDS ORDERED: HYDROCORTISO28.35 GM EXT (13:38)
[2016-06-14] MEDS ORDERED: NYSTATIN15 G1 TOP (13:38)
[2016-06-14 14:17] VITALS: BP 142/70
--- NOTE | 2016-06-14 14:29 | PN- Psychiatry ---
See Addendum Assessment/Plan Impression: Patient is a 31-year old unemployed, single male with alcohol use disorder, severe; whose mentation has stabilized secondary to completing alcohol detox. He continued to decline signing releases of information for psychiatrist Dr. Michael Robertson and therapist Milly Dickerson; he preferred to inform them himself of this hospitalization. He denied urges or cravings to use substances. However, he showed limited judgement and insight into the chronicity and severity of his alcohol use. He refused referrals to residential rehabs and [facility] Dual IOP and appeared to minimize his drinking. He did not clarify the frequency , duration or quantity of his drinking. He denied the use of other substances. He was only agreeable to continue outpatient treatment with current psychiatrist and therapist. Patient would likely benefit from increased dual treatment support (IOP and residential rehab), however refused recommendations. Suggestion: 1. Recommend discontinuing Xanax to limit risk of combined use of alcohol and Xanax. Patient endorses low motivation to stop drinking; is at risk for relapse. 2. Recommend referrals for residential rehab/Dual Intensive Outpatient Psychiatry. Patient refused recommendations. 3. Patient to follow up with outpatient psychiatrist Dr. Michael Cuevas and therapist Milly Dickerson for continued psychiatric treatment. 4. Education provided on Alcoholics Anonymous. Patient was strongly advised to attend daily AA meetings and obtain a sponsor for support in sobriety. Patient verbalized understanding of instruction. 5. In the event of an emergency, call 911/go to nearest emergency department. Patient verbalized understanding of instruction. Subjective Subjective: Identifying Info: Patient is a 31-year-old single male presents to [facility] emergency department on 06/07/2016 with chief complaint of bilateral leg swelling 1 week. Subsequently admitted to the critical care unit and diagnosed with severe hyponatremia, decompensated liver failure, macrocytic anemia, bilateral pleural effusion, bilateral lower extremity swelling and alcohol detox. Mental Status Exam Presentation/Appearance: Cooperative, easily engaged in conversation; dressed in hospital garb. Orientation: person, place, day, month, year. Sensorium: awake and alert Eye contact: Appropriate Affect: full - range Mood: "Positive" Depression: 0/10 (10 being the worst) Anxiety: 2/10 (10 being the worst) Thought Content: - Denies SI/HI, AH/VH, PI. States and also believes he will not kill himself. - Denies Hopeless/Helpless Thoughts Thought Process: Confused at times Speech: monotone, normal in volume. Judgment: Limited Insight: Fair Cognition: intact Memory: intact Attention/Concentration: intact Objective Last 24 Hrs of Vital Signs/I&O Vital Signs Date Time Temp Pulse Resp B/P Pulse O2 O2 Flow FiO2 Ox Delivery Rate 06/14 1417 98.0 80 20 142/70 93 Room Air 06/14 0643 98.5 75 20 148/70 98 Room Air 06/13 2259 98.6 76 20 138/70 97 Room Air Intake & Output 06/14 1600 06/14 0800 06/14 0000 Intake Total 240 250 240 Output Total 600 1000 200 Balance -360 -750 40 Intake, Oral 240 250 240 Number 0 Bowel Movements Output, Urine 600 1000 200 Current Medications: Current Medications Sig/Sonja Start time Last Medication Dose Route Stop Time Status Admin Benzocaine/Menthol 1 YUNIEL Q2P PRN 06/09 0045 AC 06/09 PO 0556 Bisacodyl 10 MG ONE ONE 06/14 1545 DC PO 06/14 1546 Bisacodyl 10 MG ONCE ONE 06/14 1015 DC IL 06/14 1016 Bisacodyl 5 MG DAILY NEEDED PRN 06/13 0000 AC 06/14 PO 0930 Folic Acid 1 MG DAILY 06/08 1000 AC 06/14 PO 0930 Furosemide 40 MG DAILY 06/13 1000 AC 06/14 PO 0930 Gabapentin 200 MG Q8 06/14 1400 CAN PO Gabapentin 200 MG Q8 06/14 1400 AC 06/14 PO 1256 Gabapentin 100 MG Q8 06/12 1400 DC 06/14 PO 0555 Hydrocortisone 1 LAURENT BID PRN 06/09 1830 AC EXT Lorazepam 1 MG Q2P PRN 06/07 1830 AC 06/10 IV 2240 Lorazepam 2 MG Q2P PRN 06/07 1800 AC IV Multivitamins 1 TAB DAILY 06/08 1000 AC 06/14 PO 0930 Nystatin 1 LAURENT TID PRN 06/07 0915 AC 06/09 TOP 1142 Pantoprazole Sodium 40 MG DAILY 06/07 1000 AC 06/14 IV 0927 Polyethylene Glycol 17 GM DAILY 06/14 1015 AC PO Polyethylene Glycol 17 GM DAILY 06/11 1012 DC 06/14 PO 0930 Senna/Docusate Sodium 2 TAB AT BEDTIME 06/11 2200 AC 06/13 PO 212 Spironolactone 100 MG DAILY 06/10 1000 AC 06/14 PO 0930 Tramadol HCl 50 MG Q6-PRN PRN 06/12 0815 AC 06/14 PO 1205 Results Last 24 Hrs of Labs/Mics: Laboratory Tests 06/14 0640 Chemistry Sodium (137 - 145 mmol/L) 127 L Potassium (3.5 - 5.1 mmol/L) 4.3 Chloride (98 - 107 mmol/L) 91 L Carbon Dioxide (22 - 30 mmol/L) 32 H Anion Gap (5 - 16) 4 L BUN (9 - 20 mg/dL) 9 Creatinine (0.7 - 1.2 mg/dL) 0.5 L Estimated GFR (>60 ml/min) > 60 BUN/Creatinine Ratio (7 - 25 %) 18.0 Magnesium (1.6 - 2.3 mg/dL) 1.9 Total Bilirubin (0.2 - 1.3 mg/dL) 2.5 H Direct Bilirubin (< 0.4 mg/dL) 1.3 H AST (17 - 59 U/L) 66 H ALT (21 - 72 U/L) 58 Alkaline Phosphatase (< 127 U/L) 256 H Total Protein (6.3 - 8.2 g/dL) 6.4 Albumin (3.5 - 5.0 g/dL) 3.6 Coagulation PT (9.4 - 12.5 SEC) 16.8 H INR (0.90 - 1.17) 1.61 H Hematology CBC w Diff NO MAN DIFF REQ WBC (4.8 - 10.8 /CUMM) 10.4 RBC (4.70 - 6.10 /CUMM) 2.11 L Hgb (14.0 - 18.0 G/DL) 7.9 L Hct (42 - 52 %) 24.5 L MCV (80.0 - 94.0 FL) 116.3 H MCH (27.0 - 31.0 PG) 37.5 H RDW (11.5 - 14.5 %) 20.7 H Plt Count (130 - 400 /CUMM) 89 L MPV (7.4 - 10.4 FL) 7.4 Gran % (42.2 - 75.2 %) 71.1 Lymphocytes % (20.5 - 51.1 %) 19.0 L Monocytes % (1.7 - 9.3 %) 7.7 Eosinophils % (0 - 5 %) 1.8 Basophils % (0.0 - 2.0 %) 0.4 Absolute Granulocytes (1.4 - 6.5 /CUMM) 7.4 H Absolute Lymphocytes (1.2 - 3.4 /CUMM) 2.0 Absolute Monocytes (0.10 - 0.60 /CUMM) 0.8 H Absolute Eosinophils (0.0 - 0.7 /CUMM) 0.2 Absolute Basophils (0.0 - 0.2 /CUMM) 0 PUBS MCHC (33.0 - 37.0 G/DL) 32.3 L Thank you for letting psychiatry participate in Mr. Hoyt's care. We do not anticipate further visits. Please reconsult if psychiatric matters arise. Irlanda Crespo APRN Beeper ext. [phone]
--- NOTE | 2016-06-14 15:13 | PN- Att Addend ---
Attending MD Review Statement Attending Statement Attending MD Statement: examined this patient, discuss w/resident/PA/HIDE PULLER, agreed w/resident/PA/HIDE PULLER, discussed with family, reviewed EMR data (avail), discussed w/ nursing, discussed w/case mgmt Attending Assessment/Plan: Laboratory Tests 06/14/16 0640: Anion Gap 4 L, Estimated GFR > 60, BUN/Creatinine Ratio 18.0, Magnesium 1.9, Total Bilirubin 2.5 H, Direct Bilirubin 1.3 H, AST 66 H, ALT 58, Alkaline Phosphatase 256 H, Total Protein 6.4, Albumin 3.6, PT 16.8 H, INR 1.61 H, CBC w Diff NO MAN DIFF REQ, RBC 2.11 L, MCV 116.3 H, MCH 37.5 H, RDW 20.7 H, MPV 7.4, Gran % 71.1, Lymphocytes % 19.0 L, Monocytes % 7.7, Eosinophils % 1.8, Basophils % 0.4, Absolute Granulocytes 7.4 H, Absolute Lymphocytes 2.0, Absolute Monocytes 0.8 H, Absolute Eosinophils 0.2, Absolute Basophils 0, PUBS MCHC 32.3 L Vital Signs Date Time Temp Pulse Resp B/P Pulse O2 O2 Flow FiO2 Ox Delivery Rate 06/14 1417 98.0 80 20 142/70 93 Room Air 06/14 0643 98.5 75 20 148/70 98 Room Air 06/13 2259 98.6 76 20 138/70 97 Room Air Patient seen and examined at bedside. Discussed with patient as well as patient 's mother and the care plan. Disposition-had had extensive discussion with patient's mother and the director of casework about discharge planning. Patient's mother wants to wait to hear back from to subacute rehabilitation facilities to see if they will accept him. Plan is to wait till tomorrow to hear back from the rehabilitation place and if they do not have that then the family wants to take patient home and do outpatient physical therapy. Patient's mom was explained that there has to be somebody 24 7 around the patient due to his deconditioned state and his tendency to fall due to weakness. She assured that she will be around and her will be around all the time and they can ask their other kids to come and help. Hyponatremia secondary to liver disease and high ADH state. Continue with the fluid restriction and oral diuretics for now. Sodium seems to be stable. Total time spent 45 minutes more than 50% of the time was spent in coordination and care.
--- NOTE | 2016-06-14 19:47 | NUR ---
PT'S MOTHER ASKING ABOUT PT'S SLIPPERS THAT NEVER CAME UP FROM ER. CALL PLACED TO ER AND THEY WILL CHECK THE CLOSET WHEN ABLE TO DO SO.
[2016-06-14 22:47] VITALS: BP 152/78
[2016-06-15 06:42] VITALS: BP 144/70
--- NOTE | 2016-06-15 07:14 | PN- Housestaff ---
Subjective Follow-up For: Hyponatremia, bilateral leg swelling Complaints: no complaints Subjective: Patient is more active today, walking around with a walker, looks fresh and more alert, oriented, focused Patient still has some pain/numbness in his bilateral hands, but markedly improved legs' strength Still is on 800 mL fluid restriction diet for 24 hours CIWA 0 Review of Systems Constitutional: Reports: no symptoms. Cardiovascular: Reports: no symptoms. Respiratory: Reports: no symptoms. Gastrointestinal: Reports: no symptoms. Genitourinary: Reports: no symptoms. Musculoskeletal: Reports: see HPI. Neurological/Psychological: Reports: see HPI. Hematologic/Endocrine: Reports: no symptoms. Objective Last 24 Hrs of Vital Signs/I&O Vital Signs Date Time Temp Pulse Resp B/P Pulse O2 O2 Flow FiO2 Ox Delivery Rate 06/15 0642 98.5 80 18 144/70 91 Room Air 06/14 2247 98.0 79 20 152/78 93 Room Air Intake & Output 06/15 1600 06/15 0800 06/15 0000 Intake Total 240 220 Output Total Balance 240 220 Intake, Oral 240 220 Number 0 0 Bowel Movements Physical Exam General Appearance: Alert, Oriented X3, Cooperative, No Acute Distress Other Physical Findings: General: obese patient, not in distress Head: Normocephalic, atraumatic Eyes: Pupils normal in size, regular, reacting to light and accommodation, EOM normal Ears: B/l normal on inspection Nose: Normal on inspection Throat/mouth: Moist mucosa Neck: Supple, full range of motion, no thyromegaly Heart: Regular rate, regular rhythm Lung: Normal breath sound bilaterally Added sound not heard Abd: Soft, non-tender, no distention appreciated Back: Normal range of motion Extremities: Normal knee exam bilaterally, b/l pedal edema present and the erythema over the shins has decreased, but non tender even on pressing, Distal neurovascular intact objectively, subjectively, he says he has decreased sensation over his hands b/l but less than yesterday; lower limbs are stronger today, patient seen by me walking with walker earlier. Neurologic: Alert, oriented x3, Cranial exam grossly intact, Speech is clear and coherent, see ext exam about sensation Skin: Warm and dry Psychiatric: Calm, cooperative, coherant Current Medications: Current Medications Sig/Sonja Start time Last Medication Dose Route Stop Time Status Admin Alprazolam 0.5 MG ONCE ONE 06/14 2345 DC 06/15 PO 06/14 2346 0023 Benzocaine/Menthol 1 YUNIEL Q2P PRN 06/09 0045 DCD 06/09 PO 0556 Bisacodyl 10 MG ONCE ONE 06/14 2345 DC 06/14 SC 06/14 2346 2341 Bisacodyl 5 MG DAILY NEEDED PRN 06/13 0000 DCD 06/14 PO 0930 Folic Acid 1 MG DAILY 06/08 1000 DCD 06/15 PO 0929 Furosemide 40 MG DAILY 06/13 1000 DCD 06/15 PO 0929 Gabapentin 200 MG Q8 06/14 1400 DCD 06/15 PO 1338 Hydrocortisone 1 LAURENT BID PRN 06/09 1830 DCD 06/15 EXT 0816 Multivitamins 1 TAB DAILY 06/08 1000 DCD 06/15 PO 0929 Pantoprazole Sodium 40 MG DAILY 06/07 1000 DCD 06/15 IV 0930 Polyethylene Glycol 17 GM DAILY 06/14 1015 DCD PO Senna/Docusate Sodium 2 TAB AT BEDTIME 06/11 2200 DCD 06/14 PO 2051 Spironolactone 100 MG DAILY 06/10 1000 DCD 06/15 PO 0929 Thiamine HCl 100 MG DAILY 06/15 1000 DCD 06/15 PO 1235 Tramadol HCl 50 MG Q6-PRN PRN 06/12 0815 DCD 06/15 PO 1438 Last 24 Hrs of Lab/Cb Results Last 24 Hrs of Labs/Mics: Laboratory Tests 06/15/16 0835: PT 16.7 H, INR 1.60 H 06/15/16 0810: Anion Gap 8, Estimated GFR > 60, BUN/Creatinine Ratio 14.0, Magnesium 1.8, Total Bilirubin 2.4 H, Direct Bilirubin 1.1 H, AST 63 H, ALT 56, Alkaline Phosphatase 265 H, Total Protein 6.9, Albumin 3.9 Assessment/Plan Assessment: 31-year-old male with past medical history of gastritis, alcoholic pancreatitis, hypertension, hepatitis C, gallbladder polyp, hypothyroidism, chronic tobacco abuse and alcohol abuse status post failed rehabilitation, PTSD, anxiety, is here because of bilateral leg swelling and is currently being managed in the general medical floor for the following issues: #Hypervolemic hyponatremia Ongoing ADH hypersecretion, secondary to alcoholic liver disease. He is on fluid restriction 800 mL per 24 hours and 2 g sodium restriction in his meals, besides this, he is currently getting Lasix 40 mg daily, and nephrology service has been following him. -Nephrology consult appreciated -His sodium is markedly better at 132, much better than ever before today -But he still requires 800 mL fluid restriction diet per nephrology for next few weeks as he gets weekly comprehensive metabolic panel tested and a copy sent to tenter for any necessary changes -Patient's mother, patient himself understands the situation and has agreed to follow, scripts have been handed over to patient accordingly -his numbers might get slightly better after his liver condition gets better -Patient is to be discharged today with home health services including physical therapy, and a referral has been made for psychiatric services which the patient himself wants of his choice. He said he will find psychiatry services by himself. 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 -He needs to be screened for hepatocellular carcinoma given his history of cirrhosis. -He needs a follow-up of his MELD score for possible liver transplantation if it remains above 15. -He needs an outpatient endoscopic procedures to check and fix if necessary for varices #Macrocytic anemia -Most likely due to chronic alcohol abuse -We will continue folic acid by mouth daily #Thrombocytopenia Likely due to decompensated liver disease -vitamin K by mouth was given for 3 days #Neuropathic pain -Likely from chronic alcohol abuse, less likely causes are vitamin B12 deficiency which is unlikely as his level is 662 -Continue 200 mg of gabapentin PO 3 times a day #Alcohol detoxification Patient CIWA is 0 this morning, max of 2, mainly for tachycardia #History of PTSD/anxiety/alcohol abuse -He needs IOP follow-up and has been seen once by social work department. -Following Psychiatry service. He had provided minimal information to the psychiatric consult, and refused to release information from his previous psychiatrist -He however, agreed to follow-up with his current psychiatrist after his discharge -He understands that he needs IOP follow-up program but she refused a referral to [facility] program Pain plan-acetaminophen Diet-regular diet continued as he had a regular/normal swallow evaluation this morning DVT prophylaxis-mechanical CODE STATUS-full code Problem List: 1. ADH disorder 2. Hyponatremia Pain Ratin Pain Location: hands Pain Goal: Pain 4 or less Pain Plan: prn tramadol Tomorrow's Labs & Rationales: -
--- NOTE | 2016-06-15 08:09 | NUR ---
Physical Therapy: Pt observed ambulating around unit with RW Independently. Spoke with pt regarding stairs. Pt does not have to neogitate at this time as he is in a basement apartment. He will be living with his mother who is a nurse. Pt cleared for a home d/c at this time. Will not continue to follow. Thank you.
[2016-06-15 09:16] LABS: PT 16.7 SEC (9.4-12.5)
[2016-06-15] MEDS ORDERED: Vitamin B1 PO (10:26)
--- NOTE | 2016-06-15 15:39 | PN- Att Addend ---
Attending MD Review Statement Attending Statement Attending MD Statement: examined this patient, discuss w/resident/PA/PRINCIPAL SCIENTIST, agreed w/resident/PA/PRINCIPAL SCIENTIST, reviewed EMR data (avail), discussed w/nursing, discussed w/ case mgmt Attending Assessment/Plan: Laboratory Tests 06/15/16 0835: PT 16.7 H, INR 1.60 H 06/15/16 0810: Anion Gap 8, Estimated GFR > 60, BUN/Creatinine Ratio 14.0, Magnesium 1.8, Total Bilirubin 2.4 H, Direct Bilirubin 1.1 H, AST 63 H, ALT 56, Alkaline Phosphatase 265 H, Total Protein 6.9, Albumin 3.9 Vital Signs Date Time Temp Pulse Resp B/P Pulse O2 O2 Flow FiO2 Ox Delivery Rate 06/15 0642 98.5 80 18 144/70 91 Room Air 06/14 2247 98.0 79 20 152/78 93 Room Air Hyponatremia secondary to liver disease and high ADH state. Continue with the fluid restriction and oral diuretics for now. Sodium improved to 132 today. Pt being discharged home with outpatient PT. Pt did very good with Physical therapy with walking. Pt will go to outpatient alcohol rehab.
== END 2016-06-15 14:50 | DRG 641 ==
LOC: ENRESERVDT → ENRESERVTM → ERH 23:58 → ENPENDDIS 06-07 02:25 → CRI 06-07 02:25 → ERHI 06-07 02:25 → 2NA 06-07 02:25 → CRI 06-07 04:20 → 2NA 06-09 12:24
PROVIDERS: Internal Medicine; Internal Medicine Interventional Cardiology; Physician Assistant Medical; Radiology Diagnostic Radiology; Student in an Organized Health Care Education/Training Program; ADMIT Internal Medicine Pulmonary Disease
DX: E87.1 Hypo-osmolality and hyponatremia (principal); K76.6 Portal hypertension; D69.59 Other secondary thrombocytopenia; K70.31 Alcoholic cirrhosis of liver with ascites; K70.11 Alcoholic hepatitis with ascites; K70.40 Alcoholic hepatic failure without coma; I10 Essential (primary) hypertension; E03.9 Hypothyroidism, unspecified; E66.9 Obesity, unspecified; Z68.32 Body mass index [BMI] 32.0-32.9, adult; F10.20 Alcohol dependence, uncomplicated; R00.1 Bradycardia, unspecified; F43.10 Post-traumatic stress disorder, unspecified; F12.90 Cannabis use, unspecified, uncomplicated; F17.200 Nicotine dependence, unspecified, uncomplicated
CPT/HCPCS: 2NASP; 82570; 84133; 84156; 84300; 87075; CCU; 36415; 74177; 80307; 81001; 82436; 87086; 88305; 93005; 93010; 93306; 93970; 97110-GO; 97116-GO; 97162-GP; 97530-GO; 99232; 99233; G0480; J1940; J3490